=== PATIENT | female | born 1945 | race Caucasian/White ===

== ENCOUNTER → 2018-06-25 09:56 | Outpatient (CLI) | payer MEDICARE, BC, SELFPAY ==
--- NOTE | 2018-06-25 09:58 | CT_ITS ---
STUDY: CT ABDOMEN WITH CONTRAST REASON FOR EXAM: Female, 73 years old. Rule out metastatic disease. Nausea, vomiting and diarrhea. RADIATION DOSAGE (If Supplied By Facility): CTDIvol = ( 12.65 ) mGy, DLP = ( 555.22 ) mGycm TECHNIQUE: Transaxial images were obtained post I.V. administration of 100 ml of Isovue 300 contrast, and oral contrast. Sagittal and coronal images were reconstructed. Individualized dose optimization techniques were used for this CT. COMPARISON: CT chest 06/25/2018. FINDINGS: Body wall soft tissues: No acute process. Small bilateral neural hernias containing fat and a small amount of ascites. Osseous structures: No acute process. Lung bases: Please see CT chest same date. Liver: Normal liver enhancement with no focal suspicious lesions. No hepatomegaly. Partially radiodense gallstones are present within the gallbladder, the largest measuring approximately 1.6 cm. There is no apparent gallbladder wall thickening but the gallbladder wall is mildly hyperemic. Nonspecific. Nondilated intrahepatic biliary tree and common bile duct. Pancreas: Slight ductal ectasia up to 3 mm. Otherwise unremarkable. Spleen: Tiny splenic cyst or the hilum measuring 6 mm too small for definitive characterization. Adrenal glands: Normal. Urogenital: Small right renal parapelvic cysts. Bilaterally there is no hydronephrosis. Renal cortices are normal. Normal ureters and urinary bladder. Uterus absent. No adnexal mass or cyst. Pelvic floor and sidewalls and retroperitoneum: No mass or lymphadenopathy. Vasculature: Minimal atherosclerosis. Stomach: Minimal sliding hiatal hernia. Evidence of gastroesophageal reflux. Otherwise unremarkable stomach. Small bowel: Normal appearance of duodenum, jejunum and ileum. Large bowel: Normal appendix. Unremarkable large bowel and rectum. Free fluid or free air: Small to moderate ascites. No free air. CT/Abdomen/Pelvis WITH Contrast IMPRESSION: Ascites. Cholelithiasis. Correlate for right upper quadrant abdominal pain which might prompt additional ultrasound characterization. No other acute abdominopelvic process. Electronically Signed: Nick Deleon, at 17:40 EDT Tel , Service support ,
--- NOTE | 2018-06-25 09:58 | CT_ITS ---
STUDY: CT CHEST WITH CONTRAST REASON FOR EXAM: Female, 73 years old. Rule out metastases. Nausea, vomiting and diarrhea. RADIATION DOSAGE (If Supplied By Facility): CTDIvol = ( 12.65 ) mGy, DLP = ( 216.62 ) mGycm TECHNIQUE: Transaxial imaging was performed following intravenous administration of 100 ml of Isovue 300 contrast material. : Sagittal 2-D MPR Individualized dose optimization techniques were used for this CT. COMPARISON: CT abdomen and pelvis same date. CT chest 09/30/2009.. FINDINGS: Supraclavicular: Normal. Body wall soft tissues: Postsurgical changes of the right breast and right axilla with no apparent mass or lymphadenopathy. Right mastectomy. No visible other malady of the left breast and no left axillary lymphadenopathy. Osseous structures: Kyphoscoliosis, osteopenia. There is a sclerotic focus within the vertebral body at T12, measuring 7.5 mm in diameter. This should be regarded with suspicion for metastatic disease. This was not present on the study of 2009. Mediastinum: Minimal sliding hiatal hernia. Evidence of gastroesophageal reflux to the proximal 3rd of the esophagus. A few small lymph nodes are present in the mediastinum, none pathologically enlarged. There is no hilar lymphadenopathy. Cardiovascular: Unremarkable appearance of the heart with the exception of mitral annulus calcifications. No significant coronary cusp secretions are visible. Nondilated aorta. Unremarkable pulmonary artery arborization. Lungs: Mild subpleural reticulation. This could reflect prior smoking history. There is a noncalcified pulmonary nodule the left lower lobe lateral basilar measuring 4.4 mm, series 6 image 81. No other significant pulmonary nodules. That pulmonary nodule was not present on prior imaging of 2009. CT/Chest WITH Contrast IMPRESSION: Small sclerotic focus within the T12 vertebral body must be regarded with suspicion for the possibility of metastatic disease. No other lesions are apparent. Consider follow-up nuclear medicine bone scan. Small left-sided pulmonary nodule, in the left lower lobe, measuring approximate 4.4 mm. This is nonspecific. Electronically Signed: Nick Deleon at 17:45 EDT Tel , Service support ,
== END ==
PROVIDERS: Family Provider Family Medicine; PCP Family Medicine; Referring Provider Internal Medicine Medical Oncology; Visit Provider Internal Medicine Medical Oncology
DX: R91.1 Solitary pulmonary nodule (principal); R63.4 Abnormal weight loss; Z85.3 Personal history of malignant neoplasm of breast
CPT/HCPCS: 71260; 74177; Q9967

== ENCOUNTER → 2018-07-19 10:03 | Outpatient (CLI) | payer MEDICARE, BC, SELFPAY ==
--- NOTE | 2018-07-19 10:10 | NM_ITS ---
CLINICAL: 73-year-old female with reported history of carcinoma of the breast and suspected skeletal metastatic disease. WHOLE BODY 99m Tc MDP RADIONUCLIDE BONE SCINTIGRAPHY COMPARISON: CT of the chest, abdomen and pelvis reports 06/25/2018 FINDINGS: Following the intravenous administration of 24.7 mCi of 99m Tc MDP, whole body bone images reveal: 1. Focal increased radiopharmaceutical concentration is noted in the right anterior fourth rib at the costochondral junction. 2. Enhanced tracer uptake is defined in the mid cervical spine posteriorly on the right, lower cervical spine posteriorly on the left, eighth-12th thoracic, first-third lumbar vertebra posteriorly on the left and right, sternoclavicular compartment of the left shoulder, acromioclavicular compartment of the right shoulder, bilateral wrist articulations, the right midfoot, the left hand. 3. The remaining skeletal structures are scintigraphically unremarkable with normal-appearing renal images and urinary bladder activity identified. NM/Bone Scan Whole Body IMPRESSION: 1. The increase in radiopharmaceutical concentration identified in the right anterior fourth rib at the costochondral junction is most consistent with trauma-fracture. 2. The pattern of facilitated radiotracer uptake noted in the cervical, thoracic and lumbar spine, bilateral shoulder and wrist articulations, right midfoot and left hand is most consistent with degenerative arthritis. 3. Review of the 12th thoracic vertebra on the two-dimensional image acquisitions demonstrates no definitive evidence of abnormal increased radiotracer concentration to correlate with radiographic changes defined on CT of the chest dated 06/25/2018, in the region of the 12th thoracic vertebral body. Electronically Signed: Nick Tineo DO at 23:34 EDT Tel , Service support ,
== END ==
PROVIDERS: Family Provider Family Medicine; PCP Family Medicine; Referring Provider Internal Medicine Medical Oncology; Visit Provider Internal Medicine Medical Oncology
DX: Z85.3 Personal history of malignant neoplasm of breast (principal)
CPT/HCPCS: 78306

== ENCOUNTER → 2018-08-16 08:02 | Outpatient (CLI) | payer MEDICARE, BC, SELFPAY ==
[2018-08-01 11:08] VITALS: BMI 23.8
--- NOTE | 2018-08-16 08:43 | US_ITS ---
STUDY: ABDOMINAL ULTRASOUND - RIGHT UPPER QUADRANT REASON FOR VISIT: Female, 73 years old. History of ascites and possible paracentesis. TECHNIQUE: Ultrasound evaluation of the 4 quadrants was performed with real-time and static ayala-scale imaging. TECHNICAL QUALITY: Adequate. COMPARISON: None. FINDINGS: The 4 quadrants were examined by ultrasound. A small amount of perihepatic fluid is present. This is too small for a safe paracentesis. US/Abdomen Limited IMPRESSION: Not enough ascites for safe paracentesis. Electronically Signed: Atilio Orr MD at 8:18 EST Tel [phone], Service support ,
--- OUTSIDE RECORDS SUMMARY | 2018-10-11 01:41 | XMS RPT_ITS ---
:1945 Author Organization [facility] Support Name Relationship Address Phone Christelle Garcia Unavailable Unavailable + RadhaChristelle Unavailable Unavailable + CHRISTELLE GARCIA Unavailable [address] + [place] [address] R Unavailable Unavailable Unavailable CHRISTELLE GARCIA Unavailable [address] + [place] [address] R Unavailable Unavailable Unavailable CHRISTELLE GARCIA Unavailable [address] + [place] [address] R Unavailable Unavailable Unavailable CHRISTELLE GARCIA Unavailable [address] + [place] [address] R Unavailable Unavailable Unavailable CHRISTELLE GARCIA Unavailable [address] + [place] [address] R Unavailable Unavailable Unavailable CHRISTELLE GARCIA Unavailable [address] + [place] [address] R Unavailable Unavailable Unavailable CHRISTELLE GARCIA Unavailable [address] + [place] [address] R Unavailable Unavailable Unavailable CHRISTELLE GARCIA Unavailable [address] + [address] [place] [address] CHRISTELLE GARCIA Unavailable [address] + [address] [place] [address] RADHA CHRISTELLE Unavailable [address] + [place] [address] R Unavailable Unavailable Unavailable CHRISTELLE GARCIA Unavailable [address] + [place] [address] R Unavailable Unavailable Unavailable RADHA, CHRISTELLE Unavailable [address] + [address] [place] [address] RADHA, CHRISTELLE Unavailable [address] + [address] [place] [address] RADHA, CHRISTELLE Unavailable [address] + [address] [place] [address] RADHA, CHRISTELLE Unavailable [address] + [address] [place] [address] RADHA, CHRISTELLE Unavailable [address] + [place] [address] RADHA, CHRISTELLE Unavailable [address] + [place] [address] RADHA, CHRISTELLE Unavailable [address] + [place] [address] R Unavailable Unavailable Unavailable RADHA, CHRISTELLE Unavailable [address] + [place] [address] RADHA, CHRISTELLE Unavailable [address] + [place] [address] RADHA, CHRISTELLE Unavailable [address] + [place] [address] RADHA, CHRISTELLE Unavailable [address] + [place] [address] RADHA, CHRISTELLE Unavailable [address] + [place] [address] RADHA, CHRISTELLE Unavailable [address] + [place] [address] RADHA, CHRISTELLE Unavailable [address] + [place] [address] RADHA, CHRISTELLE Unavailable [address] + [place] [address] Care Team Providers Name Role Phone PAULA CASTREJON CNP Attending Unavailable RUDY HAMEED DO Primary Care Unavailable RUDY HAMEED DO Attending Unavailable RUDY HAMEED DO Referring Unavailable RDUY HAMEED DO Primary Care Unavailable PAULA CASTRJEON CNP Attending Unavailable ZARI DO, RUDY D Primary Care Unavailable RAINA CAMARILLO CNP Attending Unavailable ZARI DO, RUDY D Primary Care Unavailable DIANELYS DOJOCELYN Attending Unavailable ZARI DO, RUDY D Primary Care Unavailable JT STUART MD Consulting Unavailable SADE POP, JT Au Admitting Unavailable JT STUART MD Attending Unavailable ZARI DO, RUDY D Primary Care Unavailable CHRISTELLE HOUSER Attending Unavailable ZARI DO, RUDY D Primary Care Unavailable MIK, CHRISTELLE Attending Unavailable ZARI DO, RUDY D Primary Care Unavailable Andrea Gutierrez Attending Unavailable [place], Rudy Referring Unavailable [place], Rudy Primary Care Unavailable GutierrezAndrea Attending Unavailable Zari, Rudy Referring Unavailable Zari, Rudy Primary Care Unavailable Prah, Brigido Attending Unavailable [place], Rudy Primary Care Unavailable [place], Rudy Referring Unavailable Prah, Brigido Attending Unavailable [place], Rudy Referring Unavailable Zari, Rudy Primary Care Unavailable Prah, Brigido Consulting Unavailable Prah, Brigido Attending Unavailable [place], Rudy Referring Unavailable [place], Rudy Primary Care Unavailable Prah, Brigido Consulting Unavailable Prah, Brigido Attending Unavailable Prah, Brigido Referring Unavailable [place], Rudy Primary Care Unavailable Prah, Brigido Attending Unavailable Zari, Rudy Referring Unavailable Zari, Rudy Primary Care Unavailable Prah, Brigido Consulting Unavailable Prah, Brigido Attending Unavailable Prah, Brigido Referring Unavailable Zari, Rudy Primary Care Unavailable Prah, Brigido Attending Unavailable [place], Rudy Referring Unavailable Zari, Rudy Primary Care Unavailable Prah, Brigido Consulting Unavailable Prah, Brigido Attending Unavailable Zari, Rudy Referring Unavailable Zari, Rudy Primary Care Unavailable Prah, Brigido Consulting Unavailable Prah, Brigido Attending Unavailable Prah, Brigido Referring Unavailable [place], Rudy Primary Care Unavailable Prah, Brigido Attending Unavailable [place], Rudy Referring Unavailable [place], Rudy Primary Care Unavailable Prah, Brigido Consulting Unavailable PROBLEMS PROBLEMS DATE TYPE CONDITION / CODE ATTENDING STATUS SOURCE 09/03/2018 Unknown C50.911 - Malignant PraBrigido dolan Active [facility] neoplasm of Community unspecified site of Hospital right female breast / Repository C50.911(ICD-10) 07/15/2018 Unknown M89.9 - Disorder of PraBrigido dolan Active [place] bone, unspecified / Community M89.9(ICD-10) Hospital Repository 07/15/2018 Unknown R91.1 - Solitary Pramagdaleno, Brigido Active [place] pulmonary nodule / Community R91.1(ICD-10) Hospital Repository 07/15/2018 Unknown Z85.3 - Personal Prah, Brigido Active [facility] history of malignant Community neoplasm of breast / Hospital Z85.3(ICD-10) Repository 06/17/2018 Unknown C50.919 - Malignant PraBrigido dolan Active [facility] neoplasm of Community unspecified site of Hospital unspecified female Repository breast / C50.919(ICD-10) 12/11/2017 Unknown R21 - Rash and other Brigido Kauffman Active [place] nonspecific skin Community eruption / Hospital R21(ICD-10) Repository 12/11/2017 Unknown I70.213 - PraBrigido dolan Active [facility] Atherosclerosis of Community false pass arteries of Hospital extremities with Repository intermittent claudication, bilateral legs / I70.213(ICD-10) PROCEDURES PROCEDURES No Procedure Records FoundRESULTS RESULTS OP NOTE Observed: 08/29/2018 Status: F Source: [facility] 1:55 PM SYSTEM REPOSITORY PATIENT: ELIEZER GARCIA ADMISSION DATE: 08/29/2018 SURGERY DATE: 08/29/2018 DATE OF : 1945 AGE: 73 ADMITTING PHYSICIAN: Andrea Gutierrez MD ATTENDING PHYSICIAN: Andrea Gutierrez MD DICTATING PHYSICIAN: Andrea Gutierrez MD OPERATIVE RECORD Procedure: DIAGNOSTIC LAPAROSCOPY WITH MULTIPLE BIOPSIES WELL RIGHT SALPINGECTOMY. Preoperative Diagnoses: 1. Abnormal CT scan. 2. Ascites. 3. Elevated tumor markers. 4. History of lobular breast cancer. Postoperative Diagnoses: 1. Abnormal CT scan. 2. Ascites. 3. Elevated tumor markers. 4. History of lobular breast cancer. 5. Infiltration of peritoneum by neoplastic process. Anesthesia: General. Ship Superintendent: Shanika Gomez D.O. Description of Findings: The patient did have approximately 300 mL of a greenish, almost milky-like ascites in the upper abdomen. No disease was noted on the diaphragms. However, there did appear to be infiltration in the pelvic peritoneum, especially on the right side some type of neoplastic process with very thickened peritoneum without actual tumor nodules being noted. In addition, on several loops of the small bowel, especially those in the distal ilium had evidence of a whitish plaque-like infiltration that made the mesentery thickened and hardened. Several biopsies were obtained of the small bowel mesentery, pelvic peritoneum as well as removal of a portion of the left fallopian tube. The left ovary could not be removed laparoscopically as there was very dense almost woody infiltration involving the infundibulopelvic ligament. Description of Procedure: The patient was identified and brought to the operating room. After administration of general anesthesia, Redd catheter was placed and she underwent a sterile prep and drape in the supine position. A small incision made in the umbilicus and using the [employer] system, the abdominal cavity was entered under direct vision. Two 5-mm ports were then placed in the right and left lower quadrant. Both being placed under direct vision. The small bowel adhesions were sharply lysed. This allowed the pelvis to be evaluated. Attempt was made to remove the right ovary, however, there was very dense and woody infiltration and the ovary was very stuck to the pelvic sidewall right atop of the external iliac vessels. A portion of the right fallopian tube though could be easily removed and this was removed. Several peritoneal biopsies were then obtained of this area around the right ovary with what appeared to be dense infiltration of the pelvic peritoneum. Several mesenteric biopsies of the small bowel were also performed. The ascites was also evacuated. This completed the operation, all sponges, needles, and instruments was correct to the surgeon x2. All instruments were removed from the abdominal cavity. The fallopian tube was removed out through a 5 mm bag through the middle port. All the port sites were then closed with subcuticular 4-0 Monocryl and Dermabond. EBL was minimal. The Redd catheter was removed. She was taken to the recovery room in stable condition. We will await pathology for final confirmation. cc: Brigido Kauffman M.D., [facility] Job ID: [id number] Andrea Gutierrez MD DOD:08/29/2018 01:55 P /ann DOT:08/29/2018 03:33 P Job Number: [id number] Document Number: [id number] cc: Andrea Gutierrez MD [facility] [address] [facility] [address] Observed: 08/29/2018 Status: F Source: [facility] SURGICAL PATHOLOGY 12:59 PM SYSTEM REPOSITORY [id number] [facility] DEPARTMENT OF [facility] PATHOLOGY AND LABORATORY MEDICINE [address] [place] [address] FINAL SURGICAL PATHOLOGY REPORT NAME: ELIEZER GARCIA : 1945 73 Y F BILLING NO.: [id number] [address] PROCEDURE 08/29/2018 DATE: SURGEON: ANDREA GUTIERREZ MD RECEIVED 08/29/2018 DATE: ATTENDING: ANDREA GUTIERREZ MD REPORT DATE: 09/02/2018 COPIES TO: DIAGNOSIS: A. MESENTERY, BIOPSY - METASTATIC CARCINOMA, CONSISTENT WITH LOBULAR BREAST CARCINOMA. B. PERITONEUM, PELVIS, BIOPSY - METASTATIC CARCINOMA, CONSISTENT WITH LOBULAR BREAST CARCINOMA. C. FALLOPIAN TUBE, RIGHT, BIOPSY - METASTATIC CARCINOMA, CONSISTENT WITH LOBULAR BREAST CARCINOMA. COMMENT: The malignant cells in Parts A, B, and C are morphologically similar. Immunostains for cell type and additional information were performed on Part C only. The cells stain positive for EPHRAIM-3 and are negative for PAX8, which, along with the morphology, is consistent with a breast primary. ER is positive in approximately 10-20% of tumor cell nuclei, and NJ is positive in approximately 5% of tumor cell nuclei. HER2 shows positive staining Score 3+). Note is made of the patient's previous invasive lobular breast carcinoma from 2008 (outside hospital, records in [facility]). [facility] <Sign Out Dr. Vaca> KRYSTAL NAVARRETE M.D. CLINICAL INFORMATION: History of lobular breast cancer in [place]. Now with ascites and infiltrating neoplasm of peritoneum SPECIMEN: (A) BIOPSY (B) PERITONEUM, BIOPSY (C) FALLOPIAN TUBE (RFN) GROSS DESCRIPTION: A. Small biopsy mesentery biopsies Received in formalin are segments of yellow-fletcher tissue aggregating to 0.4 x 0.4 cm. The specimen is entirely submitted in a single cassette. (bits ns, 1) B. Pelvic peritoneal biopsies Received in formalin are multiple pink-fletcher tissue segments aggregating to 0.5 x 0.5 cm. The specimen is entirely submitted in a single cassette. (bits ns, 1) C. Portion of right fallopian tube Received in formalin is a tubal portion of pink-ayala tissue 2.3 x 1.0 cm. Fimbriae are present at one end and are free. There is a nodule identified at the tube's midpoint. Upon transection, this nodule has a white-ayala cut surface. It measures approximately 0.8 x 0.8 cm. The tube has a tubal lumen. The tube is sectioned and is entirely submitted in three cassettes. (bits ns, 3) [facility] Disclaimer: The following statement applies to all immunohistochemistry, in situ hybridization, molecular studies, and immunofluorescence testing. The use of one or more reagents in the above tests is regulated as an analyte specific reagent (ASR). These tests were developed and their performance characteristics determined by the clinical laboratories of [facility]. They have not been cleared by the US Food and Drug Administration (FDA). The FDA has determined that such clearance or approval is not necessary. All the above immunostains were performed on paraffin embedded tissue. Appropriate positive and negative controls (where applicable) were run in parallel with the patient's specimen; these controls showed expected staining pattern, with acceptable intensity of staining. Immunohistochemical assays have not been validated on decalcified tissues. Results should be interpreted with caution given the raised possibility of false negativity on decalcified specimens. Professional Performing Location: [address] [place] [address]. DEPARTMENT OF PATHOLOGY AND LABORATORY MEDICINE [place], [place] [address] HEMOGLOBIN AND Collected: 08/29/2018 Status: F Source: [facility] HEMATOCRIT 12:38 PM SYSTEM REPOSITORY TYPE CODE TESTS RESULT OUT OF RANGE REFERENCE UNITS LAB HGB 11.7-16.0 g/dL Normal Hemoglobin 12.5 LAB HCT 35.0-47.0 % Normal Hematocrit 37.0 Performed By: #### HGHCMarcy, BMP3 #### [facility] [address] [place] [id number] BASIC METABOLIC PANEL Collected: 08/29/2018 Status: F Source: [facility] 12:38 PM SYSTEM REPOSITORY TYPE CODE TESTS RESULT OUT OF RANGE REFERENCE UNITS LAB NA3 135-145 mmol/L Normal Sodium 138 Result Comment: NOTE: New Sodium Reference Range effective 2018 @ 10:00 LAB K3 3.5-5.1 mmol/L Normal Potassium 4.1 LAB CL3 98-107 mmol/L Normal Chloride 102 LAB CO23 22-30 mmol/L Normal Carbon Dioxide 26 LAB ANIN3 NA Anion Gap 10 LAB GLUC3 70-100 mg/dL Normal Glucose 87 LAB BUN3 7-20 mg/dL Normal Urea Nitrogen 12 LAB CRET3 0.52-1.25 mg/dL Normal Creatinine 0.72 LAB GF3BR >60 mL/min eGFR > 60.0 LAB GF3WR >60 mL/min eGFR OTHER > 60.0 Result Comment: Source- MDRD equation with creatinine calibration to IDMS(NKDEP) eGFR not recommended for drug dose adjustment LAB CA3 8.4-10.4 mg/dL Normal Calcium 9.6 Performed By: #### HGHCMarcy, BMP3 #### [employer] [address] [address] Observed: 08/29/2018 Status: F Source: [facility] MEDICAL CYTOLOGY 12:00 AM SYSTEM REPOSITORY [facility] [id number] DEPARTMENT OF PATHOLOGY AND [facility] LABORATORY MEDICINE [address] [place] [address] FINAL MEDICAL CYTOLOGY REPORT NAME: ELIEZER GARCIA : 1945 73 Y F BILLING NO.: [id number] LOCATION: [facility] PACU OUTPT 1PAC PROCEDURE 08/29/2018 56 DATE: PHYSICIAN: ANDREA GUTIERREZ MD RECEIVED DATE: 08/30/2018 ATTENDING: ANDREA GUTIERREZ MD REPORT DATE: 09/02/2018 COPIES TO: CLINICAL DATA: DIAGNOSIS POSITIVE FOR MALIGNANT CELLS. CELLULAR FINDINGS ARE CONSISTENT WITH CARCINOMA. SEE COMMENT. COMMENT: The cells present in this specimen are morphologically similar to the metastatic carcinoma cells present in the patient's concurrent peritoneal biopsies and right fallopian tube ([id number]). This is consistent with metastatic lobular breast carcinoma. Please see surgical case for ER, NJ, and HER2 ancillary studies results. Comment: ADDITIONAL SURGICAL CASES EXIST FOR THIS SAME DATE OF SERVICE SPECIMEN: ASCITES FLUID PROCEDURE(S): FLUID COLLECTION GROSS DESCRIPTION: 100 ml, yellow fluid, w/o cytolyt Materials Prepared & Examined: Cell Blocks . . . . . . . . . . . . 1 Monolayers . . . . . . . . . . . . 1 [facility] <Sign Out Dr. Vaca> Screened by KRYSTAL NAVARRETE M.D. The following statement applies to all immunohistochemistry, in situ hybridization, molecular studies, and immunofluorescence testing. The use of one or more reagents in the above tests is regulated as an analyte specific reagent (ASR). These tests were developed and their performance characteristics determined by the clinical laboratories of [facility] [employer] [facility]. They have not been cleared by the US Food and Drug Administration (FDA). The FDA has determined that such clearance or approval is not necessary. All the above immunostains were performed on paraffin embedded tissue. Appropriate positive and negative controls (where applicable) were run in parallel with the patient's specimen; these controls showed expected staining pattern, with acceptable intensity of staining. Immunohistochemical assays have not been validated on decalcified tissues. Results should be interpreted with caution given the raised possibility of false negativity on decalcified specimens. Case reviewed at [facility] [address] [place] [address]. DEPARTMENT OF PATHOLOGY AND LABORATORY MEDICINE [place], [place] [address] ONCOLOGY VISIT REPORT Observed: 08/22/2018 Status: F Source: [place] 2:13 PM [facility] REPOSITORY [facility] Medical Oncology [address] [place] [address] OFFICE VISIT Date of Service: 08/21/18 1603 MR#: [id number] Acct: [id number] Name: ELIEZER GARCIA Rep #: [id number] : 1945 From: Brigido Kauffman MD Age/Sex: 73/F Location: OMD Status: Signed Subjective - Date of Service Date of Service:: 08/21/18 - Chief Complaint Follow up-breast cancer and PET/CT results. - History of Present Illness 73y.o.woman was diagnosed with Stage IIIA (pT2, pN2, M0), ER/NJ positive, HER2 amplified, grade 2 infiltrating lobular carcinoma of the right breast on 01/13/2009. S/P lumpectomy on 02/15/2009. S/P right MRM and axillary dissection on 03/15/2009. S/P TCH chemotherapy x6 cycles, completed 08/05/2009, and Herceptin maintenance until March 2010. S/P XRT to the right mastectomy site and right supraclavicular area, completed 11/19/2009. Was on Femara from 09/17/2009 till November 2017. She has constipation, poor appetite and weight loss over the last 3 months. Vomited last Sunday. CXR a few months ago at [facility] showed a nodule. CT c/a/p on 06/25/2018 showed 4mm nodule LLL, Ascites, sclerotic focus T12, Gallstones. Bone scan done on 07/19/2018 showed DJD. PET/CT on 07/29/2018 showed hypermetabolic activities on hepatic capsule, retroperitoneal and pelvic floor. She was referred for US guided paracentesis and comes for follow up. - Past Medical/Social History Past Medical History Past Medical History: Heart disease Cancer: Breast cancer Past Surgical History Surgical: Back, section,Hysterectomy,Lumpectomy, Tonsillectomy Other Surgical History: LAPAROSCOPY Back Surgery Jul 2015 Family History Paternal Past Medical History: Heart disease Maternal Past Medical History: Unknown Maternal History of Cancer: Thyroid cancer Social History Social History: No changes Smoking Status Never smoker Review of Systems Constitutional:: Reports: Weight loss. Denies: Fever, Sweats, Appetite change, Chills Cardiovascular:: Denies: Chest pain, Palpitations, Dyspnea on exertion, Orthopnea, PND, Shortness of breath Respiratory: Denies: Cough, Hemoptysis, Shortness of Breath, Wheezing Gastrointestinal:: Denies: Abdominal pain, Nausea, Vomiting, Diarrhea, Constipation, Hematochezia Genitourinary: Denies: Dysuria, Hematuria, 15, Flank pain Musculoskeletal:: Denies: Back pain, Myalgia, Arthralgia Skin: Denies: Rash, Skin Changes, Wounds Neurological:: Denies: Headache, Dizziness, Visual changes, Tinnitus, Hearing loss Psychiatric: Denies: Anxiety, Depression, Homicidal Ideations, Suicidal Ideations Vital Signs Height 5 ft 4 in Weight: 62.369 kg Weight in Pounds 137.5 lbs Pulse Ox 97 - Physical Exam General: Alert, Oriented x3, No apparent distress Laboratory Data: Laboratory Tests Carcinoembryonic Ag 122.9 H CA 15-3 Antigen 160.2 H CA 27-29 342.5 H CA 125 Antigen 60.6 H Diagnostic Data: Diagnostic Data PET, CT Tumor Imaging 07/29/18 08:00 IMPRESSION: 1. ABNORMAL EXAMINATION INDICATIVE OF MALIGNANT VIABLE NEOPLASM. 2. Increased glucose concentration noted in the upper abdominal retroperitoneum and retrocrural regions fulfills quantitative criteria for viable neoplasm. 3. Facilitated FDG uptake noted in the right upper abdomen contiguous to the hepatic capsule fulfills quantitative criteria for malignant transformation. 4. Borderline criteria of viable neoplasm are demonstrated in the single left upper axillary hypermetabolic focus. 5. The right thoracic perihilar increase in tracer uptake does not fulfill quantitative criteria for viable neoplasm. (Rafaela bustos al, Journal of Clinical Oncology 16:2142, 1998). Electronic Signature Nick Tineo D.O. Electronically Signed: Nick Tineo DO at 22:33 EST Tel , Service support , Assessment and Plan Right breast cancer stage IIIA, finished adjuvant hormonal therapy with Femara. ? Ascites R/O metastatic disease. US guided paracentesis was unsuccessful. CEA/CA15-3, CA27.29, CA125 elevated. PET/CT shows activity in abdomen-liver capsule and retroperitoneal nodes, pelvic floor. Weight loss, L Lung nodule-stable 4mm. Discussed evaluation and biopsy by Chiropractic Neurologist Oncology. Pt agrees. Plan is to obtain Chiropractic Neurologist Onc consult. RTC 2 weeks. Medications: Prescriptions This Visit Medication Instructions Recorded Primary Care Provider: Rudy Hameed Referring Provider: - Problem List (1) History of right breast cancer Status: Chronic (2) Osteopenia Status: Chronic (3) Weight loss Status: Acute (4) Lung nodule Status: Chronic (5) Bony sclerosis Status: Chronic (6) Ascites Status: Acute Qualifiers: Ascites type: malignant Qualified Code(s): R18.0 - Malignant ascites Code Visit Office Visits / Consults: [id number] OV L4 Est 08/22/18 1413 <Electronically signed by Brigido Kauffman MD> Date Brigido Kauffman MD Cosigner Signature: Date (if applicable) CC: Andrea Gutierrez ABDOMEN LIMITED Observed: 08/16/2018 Status: F Source: [place] 8:43 AM [facility] REPOSITORY [facility] [place] Imaging Services [address] [place] [address] Abdomen Limited MR#: [id number] Acct: [id number] Name: ELIEZER GARCIA Rep #: [id number] : 1945 F 73 From: Atilio Orr MD PCP: Rudy Hameed DO Status: REG CLI Study: Abdomen Limited Date of Exam: 08/16/18 Exam# [id number] Ordering Dr: Brigido Kauffman MD STUDY: ABDOMINAL ULTRASOUND - RIGHT UPPER QUADRANT REASON FOR VISIT: Female, 73 years old. History of ascites and possible paracentesis. TECHNIQUE: Ultrasound evaluation of the 4 quadrants was performed with real-time and static ayala-scale imaging. TECHNICAL QUALITY: Adequate. COMPARISON: None. FINDINGS: The 4 quadrants were examined by ultrasound. A small amount of perihepatic fluid is present. This is too small for a safe paracentesis. US/Abdomen Limited IMPRESSION: Not enough ascites for safe paracentesis. Electronically Signed: Atilio Orr MD at 8:18 EST Tel [phone], Service support , CC: Rudy Hameed DO; Brigido Kauffman MD Triage Clinician: Signed CBC W/DIFF, AUTOMATED Collected: 08/15/2018 Status: F Source: [place] 1:07 PM [facility] REPOSITORY Order Comment: Reason for Laboratory Test . TYPE CODE TESTS RESULT OUT OF RANGE REFERENCE UNITS LAB L100.1000 4.4-11.0 K/mm3 Normal WBC 5.3 LAB L100.1200 4.2-5.4 M/mm3 Low RBC 4.12 LAB L100.1300 12.0-15.0 g/dl Low HGB 11.7 LAB L100.1400 37-47 % Normal HCT 37.7 LAB L100.1500 81-99 fL Normal MCV 91.5 LAB L100.1600 27.0-32.0 pg Normal MCH 28.4 LAB L100.1700 32-36 g/gl Low MCHC 31.0 LAB L100.1810 11.6-14.6 % High RDW CV 15.7 LAB L100.1820 35.1-43.9 fl High RDW SD 53.1 LAB L100.1900 150-450 K/mm3 Normal PLT 180 LAB L100.2000 6.2-12.0 fl Normal MPV 11.2 LAB L100.2100 47-70 % High NEUT% 72.7 LAB L100.2200 19-41 % Low LY% 13.9 LAB L100.2300 0-10 % High MONO% 12.1 LAB L100.2400 0-5 % Normal EO% 1.1 LAB L100.2500 0-1 % Normal BASO% 0.2 LAB L100.2550 0.0-0.9 % Normal IM GRAN % 0.000 Result Comment: IG% - Immature Granulocytes (promyelocytes, myelocytes and metamyelocytes) > 1% indicates that a LEFT SHIFT is Present. LAB L100.2620 2.0-7.7 X10 3/uL Normal Absolute Neut 3.8 LAB L100.2720 0.83-4.51 X10 3/ul Low Absolute Lymph 0.73 Performed By: #### L100.0100 #### [facility] [address] [place], [place], [id number] PROTHROMBIN TIME W/INR Collected: 08/15/2018 Status: F Source: [place] 1:07 PM [facility] REPOSITORY Order Comment: Reason for Laboratory Test . TYPE CODE TESTS RESULT OUT OF RANGE REFERENCE UNITS LAB L300.4150 11.7-14.9 SECONDS Normal PROTIME 13.9 LAB L300.4200 Normal INR 1.1 Performed By: #### L300.3900, L300.4310 #### [facility] [address] [place], [place], [id number] PARTIAL THROMBOPLAST Collected: 08/15/2018 Status: F Source: [place] TIME 1:07 PM [facility] REPOSITORY Order Comment: Reason for Laboratory Test . TYPE CODE TESTS RESULT OUT OF RANGE REFERENCE UNITS LAB L300.4310 24.1-36.2 Seconds Normal PTT 30.5 Performed By: #### L300.3900, L300.4310 #### [facility] [address] [place], [place], [address] CARCINOEMBRYONIC ANTIGEN Collected: 08/01/2018 Status: F Source: [place] 11:59 AM [facility] REPOSITORY Order Comment: Reason for Laboratory Test . TYPE CODE TESTS RESULT OUT OF RANGE REFERENCE UNITS LAB L3100.2300 0.0-4.7 ng/mL High CEA 122.9 Result Comment: Britton ECLIA methodology Nonsmokers <3.9 Smokers <5.6 Performed By: #### L3100.2300, L3100.5000, L3100.5040 #### [facility] (refer to report for specific site) refer to report for address and phone number CANCER ANTIGEN 125 Collected: 08/01/2018 Status: F Source: NKECHI 11:59 AM [facility] REPOSITORY Order Comment: Reason for Laboratory Test . TYPE CODE TESTS RESULT OUT OF RANGE REFERENCE UNITS LAB L3100.5000 0.0-38.1 U/mL High CA125 60.6 2303 Result Comment: Britton ECLIA methodology Performed By: #### L3100.2300, L3100.5000, L3100.5040 #### [facility] (refer to report for specific site) refer to report for address and phone number CA [phone] Collected: 08/01/2018 Status: F Source: NKECHI 11:59 AM [facility] REPOSITORY Order Comment: Reason for Laboratory Test . TYPE CODE TESTS RESULT OUT OF REFERENCE UNITS RANGE LAB L3100.5040 0.0-38.6 U/mL High CA27.29 342.5 [id number] Result Comment: Anne Centaur/ACS methodology Performed at: [facility] [id number] Pcb Design Engineer: Eriberto Meyers PhD, Phone: [phone] Performed By: #### L3100.2300, L3100.5000, L3100.5040 #### [facility] (refer to report for specific site) refer to report for address and phone number [phone] Collected: 08/01/2018 Status: F Source: NKECHI 11:59 AM [facility] REPOSITORY Order Comment: Reason for Laboratory Test . TYPE CODE TESTS RESULT OUT OF REFERENCE UNITS RANGE LAB L3100.5030 0.0-25.0 U/mL High CA 15-3 160.2 [id number] Result Comment: Britton ECLIA methodology Performed at: [facility] [address] [id number] Pcb Design Engineer: Eriberto Meyers PhD, Phone: [phone] Performed By: #### L3100.5030 #### [facility] (refer to report for specific site) refer to report for address and phone number ONCOLOGY VISIT REPORT Observed: 08/01/2018 Status: F Source: NKECHI 11:44 AM [facility] REPOSITORY [facility] [place] [address] OFFICE VISIT Date of Service: 08/01/18 1132 MR#: [id number] Acct: [id number] Name: ELIEZER GARCIA Rep #: [id number] : 1945 From: Brigido Kauffman MD Age/Sex: 73/F Location: OMD Status: Signed Subjective - Date of Service Date of Service:: 08/01/18 - Chief Complaint Follow up-breast cancer and PET/CT results. - History of Present Illness 73y.o.woman was diagnosed with Stage IIIA (pT2, pN2, M0), ER/NJ positive, HER2 amplified, grade 2 infiltrating lobular carcinoma of the right breast on 01/13/2009. S/P lumpectomy on 02/15/2009. S/P right MRM and axillary dissection on 03/15/2009. S/P TCH chemotherapy x6 cycles, completed 08/05/2009, and Herceptin maintenance until March 2010. S/P XRT to the right mastectomy site and right supraclavicular area, completed 11/19/2009. Was on Femara from 09/17/2009 till November 2017. She has constipation, poor appetite and weight loss over the last 3 months. Vomited last Sunday. CXR a few months ago at [facility] showed a nodule. CT c/a/p on 06/25/2018 showed 4mm nodule LLL, Ascites, sclerotic focus T12, Gallstones. Bone scan done on 07/19/2018 showed DJD. Had PET/CT and comes for follow up. - Past Medical/Social History Past Medical History Past Medical History: Heart disease Cancer: Breast cancer Past Surgical History Surgical: Back, section,Hysterectomy,Lumpectomy, Tonsillectomy Other Surgical History: LAPAROSCOPY Back Surgery Jul 2015 Family History Paternal Past Medical History: Heart disease Maternal Past Medical History: Unknown Maternal History of Cancer: Thyroid cancer Social History Social History: No changes Smoking Status Never smoker Review of Systems Constitutional:: Reports: Appetite change - poor.. Denies: Fever, Sweats, Weight loss, Chills Cardiovascular:: Denies: Chest pain, Palpitations, Dyspnea on exertion, Orthopnea, PND, Shortness of breath Respiratory: Denies: Cough, Hemoptysis, Shortness of Breath, Wheezing Gastrointestinal:: Reports: Constipation Genitourinary: Denies: Dysuria, Hematuria, 15, Flank pain Skin: Denies: Rash, Skin Changes, Wounds Neurological:: Denies: Headache, Dizziness, Visual changes, Tinnitus, Hearing loss Psychiatric: Denies: Anxiety, Depression, Homicidal Ideations, Suicidal Ideations Vital Signs Height 5 ft 4 in Weight: 63.049 kg Weight in Pounds 139.0 lbs Pulse Ox 98 - Physical Exam General: Alert, Oriented x3, No apparent distress HEENT: Atraumatic, PERRLA, EOMI, Normocephalic Oropharynx:: Dry mucosa Neck:: Supple, Trachea midline. Negative for: JVD, bilateral Cardiac:: Regular rate, Regular rhythm, Normal S1, Normal S2. Negative for: Murmur Lungs: Clear to auscultation, Excusion symmetrical. Negative for: Rhonchi, Wheezes Abdomen:: Bowel sounds x 4, Soft, Non-tender, Non-distended. Negative for: Hepatosplenomegaly Neurological: Neuro grossly intact Diagnostic Data: Diagnostic Data PET, CT Tumor Imaging 07/29/18 08:00 IMPRESSION: 1. ABNORMAL EXAMINATION INDICATIVE OF MALIGNANT VIABLE NEOPLASM. 2. Increased glucose concentration noted in the upper abdominal retroperitoneum and retrocrural regions fulfills quantitative criteria for viable neoplasm. 3. Facilitated FDG uptake noted in the right upper abdomen contiguous to the hepatic capsule fulfills quantitative criteria for malignant transformation. 4. Borderline criteria of viable neoplasm are demonstrated in the single left upper axillary hypermetabolic focus. 5. The right thoracic perihilar increase in tracer uptake does not fulfill quantitative criteria for viable neoplasm. (Rafaela bustos al, Journal of Clinical Oncology 16:2142, 1998). Electronic Signature Nick Tineo D.O. Electronically Signed: Nick Tineo DO at 22:33 EST Tel , Service support , Assessment and Plan Right breast cancer stage IIIA, finished adjuvant hormonal therapy with Femara. No evidence of disease clinically. Ascites R/O metastatic disease. PET/CT shows activity in abdomen and retroperitoneal nodes. Weight loss, L Lung nodule-stable 4mm. Plan is to US guided abd paracentesis-Fluid for cytology and ER status. Check CEA/CA15-3, CA27.29, CA125 RTC 2 weeks. Medications: Prescriptions This Visit Medication Instructions Recorded Primary Care Provider: Rudy Hameed Referring Provider: - Problem List (1) History of right breast cancer Status: Chronic (2) Osteopenia Status: Chronic (3) Weight loss Status: Acute (4) Lung nodule Status: Chronic (5) Bony sclerosis Status: Chronic (6) Ascites Status: Acute Qualifiers: Ascites type: malignant Qualified Code(s): R18.0 - Malignant ascites Code Visit Office Visits / Consults: 95317 OV L5 Est 08/01/18 1144 <Electronically signed by Brigido Kauffman MD> Date Brigido Kauffman MD Cosigner Signature: Date (if applicable) CC: Rudy Hameed DO PET/CT TUMOR BASE Observed: 07/29/2018 Status: F Source: [facility] SUBS 7:38 AM [facility] REPOSITORY [facility] [address] [place] [id number] PET/CT Tumor Base -Thigh Subs MR#: [id number] Acct: [id number] Name: ELIEZER GARCIA Rep #: [id number] : 1945 F 73 From: Nick Tineo DO PCP: Rudy Hameed DO Status: REG RCR Study: PET/CT Tumor Base -Thigh Subs Date of Exam: 07/29/18 Exam# [id number] Ordering Dr: Brigido Kauffman MD EXAMINATION: FDG PET CT INDICATIONS: A 73-year-old female with reported history of carcinoma of the breast presenting for restaging examination. COMPARISON EXAMINATION: Whole body bone scintigraphy report dated 07/19/18, CT of the chest, abdomen and pelvis reports dated 06/25/18. INDEX LESION SIZE SUV INTERPRETATION Upper abdominal retroperitoneum retrocrural regions 16.4 mm x 14.2 mm largest (frame 125) 3.5 (max) Fulfills quantitative criteria for viable neoplasm Right upper abdomen hepatic capsule 4.0 (max) Quantitative criteria for viable neoplasm are fulfilled Left axilla (n = 1) 11.9 mm (frame 208) 2.4 Fulfills borderline quantitative criteria for viable neoplasm NON-INDEX LESION SIZE SUV INTERPRETATION Right thoracic perihilum 1.9 Quantitative criteria for viable neoplasm are not fulfilled TECHNIQUE: Following the intravenous administration of 14.62 mCi of F-18 deoxyglucose via the left antecubital fossa, multiplanar image acquisitions of the neck, chest, abdomen and pelvis to level of mid thigh, obtained at one hour post radiopharmaceutical administration contemporaneously interpreted with the current CT of the neck, chest, abdomen and pelvis to level of mid thigh, dated 07/29/18 via coregistration and whole body bone scintigraphy report dated 07/19/18, CT of the chest, abdomen and pelvis reports dated 06/25/18 reveal: SERUM GLUCOSE LEVEL: 87 mg/dl. HEIGHT: 62 inches. WEIGHT: 135 lbs. FINDINGS: 1. An increase in glucose metabolism is multifocally apparent in the mid to lower abdominal retroperitoneum, the right upper paramedian abdomen, retrocrural in location generating a calculated maximum standard uptake value of 3.5. The maximal axial diameter of the largest individual hypermetabolic soft tissue density on review of CT of the abdomen and pelvis dated 07/29/18 is 16.4 mm (transverse) x 14.2 mm (AP). 2. Enhanced FDG uptake is visualized in the right upper-midline abdomen contiguous to the distribution of the hepatic capsule (2.6) generating a calculated maximum standard uptake value of 4.0. 3. There is an increase in radiopharmaceutical concentration visualized in the left upper axilla rendering a calculated maximum standard uptake value of 2.4. The maximal axial diameter of the corresponding metabolic, morphologic abnormality on review of CT of the thorax dated 07/29/18 is 11.9 mm (transverse). 4. Mild increased glucose concentration is observed in the right thoracic perihilum generating a calculated maximum standard uptake value of 1.9. Normal physiologic distribution of the radiopharmaceutical is apparent in the splenic parenchyma, both renal units, bladder and visualized intestinal tract. There is uniform distribution of the radiopharmaceutical concentration defined in the visualized cerebellar hemispheres and cerebral cortical structures.? Pertinent CT findings are as follows. CHEST: The right breast is surgically absent. Surgical clips are identified in the right axillary region. Left axillary soft tissue is ametabolic. There are no parenchymal densities-nodules noted in the right-left hemithorax demonstrating discernible increased glucose metabolism. ABDOMEN AND PELVIS: Atherosclerotic calcification is defined in the abdominal aorta without evidence of dilatation, aneurysm formation. Bilateral inguinal soft tissue densities are non-glucose avid. Abdominal-pelvic ascites formation demonstrates no evidence of quantitatively significant increased glucose metabolism. Cholelithiasis is defined. There is retained oral contrast material noted in the visualized intestinal tract. SKELETAL: Degenerative changes defined in the cervical, thoracic and lumbar spine demonstrate no evidence for glucose hypermetabolism. Orthopedic hardware placement is noted in the lower lumbar spine. PET/PET/CT Tumor Base -Thigh Subs IMPRESSION: 1. ABNORMAL EXAMINATION INDICATIVE OF MALIGNANT VIABLE NEOPLASM. 2. Increased glucose concentration noted in the upper abdominal retroperitoneum and retrocrural regions fulfills quantitative criteria for viable neoplasm. 3. Facilitated FDG uptake noted in the right upper abdomen contiguous to the hepatic capsule fulfills quantitative criteria for malignant transformation. 4. Borderline criteria of viable neoplasm are demonstrated in the single left upper axillary hypermetabolic focus. 5. The right thoracic perihilar increase in tracer uptake does not fulfill quantitative criteria for viable neoplasm. (Phameenlui et al, Journal of Clinical Oncology 16:2142, 1998). Electronic Signature Nick Tineo D.O. Electronically Signed: Nick Tineo DO at 22:33 EST Tel , Service support , CC: Rudy Hameed DO; Brigido Kauffman MD Triage Clinician: Signed ONCOLOGY VISIT REPORT Observed: 07/25/2018 Status: F Source: [place] 4:05 PM [facility] REPOSITORY [facility] [address] [place], [place] [address] [address] OFFICE VISIT Date of Service: 07/25/18 1403 MR#: [id number] Acct: [id number] Name: ELIEZER GARCIA Rep #: [id number] : 1945 From: Brigido Kauffman MD Age/Sex: 73/F Location: OMD Status: Signed Subjective - Date of Service Date of Service:: 07/25/18 - Chief Complaint Follow up-breast cancer - History of Present Illness 73y.o.woman was diagnosed with Stage IIIA (pT2, pN2, M0), ER/NJ positive, HER2 amplified, grade 2 infiltrating lobular carcinoma of the right breast on 01/13/2009. S/P lumpectomy on 02/15/2009. S/P right MRM and axillary dissection on 03/15/2009. S/P TCH chemotherapy x6 cycles, completed 08/05/2009, and Herceptin maintenance until March 2010. S/P XRT to the right mastectomy site and right supraclavicular area, completed 11/19/2009. Was on Femara from 09/17/2009 till November 2017. She has constipation, poor appetite and weight loss over the last 3 months. Vomited last Sunday. CXR a few months ago at [facility] showed a nodule. CT c/a/p on 06/25/2018 showed 4mm nodule LLL, Ascites, sclerotic focus T12, Gallstones. She had bone scan done and comes in for follow up - Past Medical/Social History Past Medical History Past Medical History: Heart disease Cancer: Breast cancer Past Surgical History Surgical: Back, section,Hysterectomy,Lumpectomy, Tonsillectomy Other Surgical History: LAPAROSCOPY Back Surgery Jul 2015 Family History Paternal Past Medical History: Heart disease Maternal Past Medical History: Unknown Maternal History of Cancer: Thyroid cancer Social History Social History: No changes Smoking Status Never smoker Review of Systems Constitutional:: Reports: Fatigue. Denies: Fever, Sweats Cardiovascular:: Denies: Chest pain, Palpitations, Dyspnea on exertion, Orthopnea, PND, Shortness of breath Respiratory: Denies: Cough, Hemoptysis, Shortness of Breath, Wheezing Gastrointestinal:: Denies: Abdominal pain, Nausea, Vomiting, Diarrhea, Constipation, Hematochezia Genitourinary: Denies: Dysuria, Hematuria, 15, Flank pain Musculoskeletal:: Denies: Back pain, Myalgia, Arthralgia Skin: Denies: Rash, Skin Changes, Wounds Neurological:: Denies: Headache, Dizziness, Visual changes, Tinnitus, Hearing loss Psychiatric: Denies: Anxiety, Depression, Homicidal Ideations, Suicidal Ideations Vital Signs Height 5 ft 4 in Weight: 63.049 kg Weight in Pounds 139.0 lbs Pulse Ox 95 - Physical Exam General: Alert, Oriented x3, No apparent distress Diagnostic Data: 07/19/2018 Bone scan reviewed. NM/Bone Scan Whole Body IMPRESSION: 1. The increase in radiopharmaceutical concentration identified in the right anterior fourth rib at the costochondral junction is most consistent with trauma-fracture. 2. The pattern of facilitated radiotracer uptake noted in the cervical, thoracic and lumbar spine, bilateral shoulder and wrist articulations, right midfoot and left hand is most consistent with degenerative arthritis. 3. Review of the 12th thoracic vertebra on the two-dimensional image acquisitions demonstrates no definitive evidence of abnormal increased radiotracer concentration to correlate with radiographic changes defined on CT of the chest dated 06/25/2018, in the region of the 12th thoracic vertebral body. Electronically Signed: Nikc Tineo DO at 23:34 EDT Assessment and Plan Right breast cancer stage IIIA, finished adjuvant hormonal therapy with Femara. No evidence of disease clinically. Ascites R/O metastatic disease. Weight loss, L Lung nodule-stable 4mm. Sclerotic lesion T12 R/O metastatic disease, R Rib lesion R/O metastatic disease. Plan is to obtain PET/CT. RTC 2 weeks. Medications: Prescriptions This Visit Medication Instructions Recorded Primary Care Provider: Rudy Hameed Referring Provider: - Problem List (1) History of right breast cancer Status: Chronic (2) Osteopenia Status: Chronic (3) Weight loss Status: Acute (4) Lung nodule Status: Chronic (5) Bony sclerosis Status: Chronic (6) Ascites Status: Acute Qualifiers: Ascites type: malignant Qualified Code(s): R18.0 - Malignant ascites 07/25/18 1605 <Electronically signed by Brigido Kauffman MD> Date Brigido Kauffman MD Cosigner Signature: Date (if applicable) CC: BONE SCAN WHOLE Observed: 07/19/2018 Status: F Source: [place]I BODY 10:10 AM [facility] REPOSITORY [facility] [address] [place] [address] Bone Scan Whole Body MR#: [id number] Acct: [id number] Name: ELIEZER GARCIA Rep #: [id number] : 1945 F 73 From: Nick Tineo DO PCP: Rudy Hameed DO Status: REG CLI Study: Bone Scan Whole Body Date of Exam: 07/19/18 Exam# [id number] Ordering Dr: Brigido Kauffman MD CLINICAL: 73-year-old female with reported history of carcinoma of the breast and suspected skeletal metastatic disease. WHOLE BODY 99m Tc MDP RADIONUCLIDE BONE SCINTIGRAPHY COMPARISON: CT of the chest, abdomen and pelvis reports 06/25/2018 FINDINGS: Following the intravenous administration of 24.7 mCi of 99m Tc MDP, whole body bone images reveal: 1. Focal increased radiopharmaceutical concentration is noted in the right anterior fourth rib at the costochondral junction. 2. Enhanced tracer uptake is defined in the mid cervical spine posteriorly on the right, lower cervical spine posteriorly on the left, eighth-12th thoracic, first-third lumbar vertebra posteriorly on the left and right, sternoclavicular compartment of the left shoulder, acromioclavicular compartment of the right shoulder, bilateral wrist articulations, the right midfoot, the left hand. 3. The remaining skeletal structures are scintigraphically unremarkable with normal-appearing renal images and urinary bladder activity identified. NM/Bone Scan Whole Body IMPRESSION: 1. The increase in radiopharmaceutical concentration identified in the right anterior fourth rib at the costochondral junction is most consistent with trauma-fracture. 2. The pattern of facilitated radiotracer uptake noted in the cervical, thoracic and lumbar spine, bilateral shoulder and wrist articulations, right midfoot and left hand is most consistent with degenerative arthritis. 3. Review of the 12th thoracic vertebra on the two-dimensional image acquisitions demonstrates no definitive evidence of abnormal increased radiotracer concentration to correlate with radiographic changes defined on CT of the chest dated 06/25/2018, in the region of the 12th thoracic vertebral body. Electronically Signed: Nick Tineo DO at 23:34 EDT Tel , Service support , CC: Rudy Hameed DO; Brigido Kauffman MD Triage Clinician: Signed ONCOLOGY VISIT REPORT Observed: 07/15/2018 Status: F Source: [place] 12:54 PM [facility] REPOSITORY [facility] [place] [address] OFFICE VISIT Date of Service: 07/15/18 1100 MR#: [id number] Acct: [id number] Name: ELIEZER GARCIA Rep #: [id number] : 1945 From: Brigido Kauffman MD Age/Sex: 73/F Location: OMD Status: Signed Subjective - Date of Service Date of Service:: 07/15/18 - Chief Complaint Follow up-breast cancer - History of Present Illness 73y.o.woman was diagnosed with Stage IIIA (pT2, pN2, M0), ER/NJ positive, HER2 amplified, grade 2 infiltrating lobular carcinoma of the right breast on 01/13/2009. S/P lumpectomy on 02/15/2009. S/P right MRM and axillary dissection on 03/15/2009. S/P TCH chemotherapy x6 cycles, completed 08/05/2009, and Herceptin maintenance until March 2010. S/P XRT to the right mastectomy site and right supraclavicular area, completed 11/19/2009. Was on Femara from 09/17/2009 till November 2017. She has constipation, poor appetite and weight loss over the last 3 months. Vomited last Sunday. CXR a few months ago at [facility] showed a nodule. She had a CT chest and comes in for follow up - Past Medical/Social History Past Medical History Past Medical History: Heart disease Cancer: Breast cancer Past Surgical History Surgical: Back, section,Hysterectomy,Lumpectomy, Tonsillectomy Other Surgical History: LAPAROSCOPY Back Surgery Jul 2015 Family History Paternal Past Medical History: Heart disease Maternal Past Medical History: Unknown Maternal History of Cancer: Thyroid cancer Social History Social History: No changes Smoking Status Never smoker Review of Systems Constitutional:: Denies: Fever, Sweats, Weight loss, Appetite change, Chills Cardiovascular:: Denies: Chest pain, Palpitations, Dyspnea on exertion, Orthopnea, PND, Shortness of breath Respiratory: Denies: Cough, Hemoptysis, Shortness of Breath, Wheezing Gastrointestinal:: Denies: Abdominal pain, Nausea, Vomiting, Diarrhea, Constipation, Hematochezia Genitourinary: Denies: Dysuria, Hematuria, 15, Flank pain Musculoskeletal:: Denies: Back pain, Myalgia, Arthralgia Skin: Denies: Rash, Skin Changes, Wounds Neurological:: Denies: Headache, Dizziness, Visual changes, Tinnitus, Hearing loss Psychiatric: Denies: Anxiety, Depression, Homicidal Ideations, Suicidal Ideations Vital Signs Height 5 ft 4 in Weight: 63.049 kg Weight in Pounds 139.0 lbs Pulse Ox 95 - Physical Exam General: Alert, Oriented x3, No apparent distress Diagnostic Data: 06/25/[address]/Chest WITH Contrast IMPRESSION: Small sclerotic focus within the T12 vertebral body must be regarded with suspicion for the possibility of metastatic disease. No other lesions are apparent. Consider follow-up nuclear medicine bone scan. Small left-sided pulmonary nodule, in the left lower lobe, measuring approximate 4.4 mm. This is nonspecific. Electronically Signed: Nick Deleon, at 17:[address]/Abdomen/Pelvis WITH Contrast IMPRESSION: Ascites. Cholelithiasis. Correlate for right upper quadrant abdominal pain which might prompt additional ultrasound characterization. No other acute abdominopelvic process. Electronically Signed: Nick Deleon, at 17:40 ED Assessment and Plan Right breast cancer stage IIIA, finished adjuvant hormonal therapy with Femara. No evidence of disease clinically. Osteopenia. Weight loss, L Lung nodule-stable 4mm. Sclerotic lesion T12 R/O metastatic disease Plan is to obtain bone scan. RTC 2 weeks. Medications: Prescriptions This Visit Medication Instructions Recorded Primary Care Provider: Rudy Hameed Referring Provider: - Problem List (1) History of right breast cancer Status: Chronic (2) Osteopenia Status: Chronic (3) Weight loss Status: Acute (4) Lung nodule Status: Chronic (5) Bony sclerosis Status: Chronic Code Visit Office Visits / Consults: 35328 OV L3 Est 07/15/18 1254 <Electronically signed by Brigido Kauffman MD> Date Brigido Kauffman MD Cosigner Signature: Date (if applicable) CC: XR CHEST 2 VIEWS Observed: 07/02/2018 Status: F Source: [employer] 1:32 PM [facility] REPOSITORY ORIGINAL XR CHEST 2 VIEWS CLINICAL STATEMENT: abn radiologic findings of lung field. COMPARISON: 05/29/2018, 04/27/2018, 10/16/2014 FINDINGS: A 1 cm nodular density persists in the medial RIGHT upper lobe. Patient is status post RIGHT mastectomy and axillary dissection. There is apparent calcific tendinitis of the RIGHT shoulder. Th e heart size is normal. The LEFT lung is clear. There is evidence of lumbar spine fusion. IMPRESSION: 1 cm nodular density persists in the RIGHT upper lobe. Chest CT correlation recommended. IMPORTANT. PHYSICIAN INPUT NECESSARY RADHA. Interpreted By: Marva Beebe MD Preliminary Report By: Marva Beebe MD Electronically Signed By: Marva Beebe MD Dictated Date: 07/02/2018 2:20:30 PM Prelim Date: 07/02/2018 2:20:30 PM Sign Date: 07/02/2018 2:24:18 PM ABDOMEN/PELVIS WITH Observed: 06/25/2018 Status: F Source: [place] CONTRAST 9:58 AM [facility] REPOSITORY [facility] [address] [place] [address] Abdomen/Pelvis WITH Contrast MR#: [id number] Acct: [id number] Name: RADHA,ELIEZER S Rep #: [id number] : 1945 F 73 From: Nick Deleon MD PCP: Rudy Hameed DO Status: REG CLI Study: Abdomen/Pelvis WITH Contrast Date of Exam: 06/25/18 Exam# [id number] Ordering Dr: Brigido Kauffman MD STUDY: CT ABDOMEN WITH CONTRAST REASON FOR EXAM: Female, 73 years old. Rule out metastatic disease. Nausea, vomiting and diarrhea. RADIATION DOSAGE (If Supplied By Facility): CTDIvol = ( 12.65 ) mGy, DLP = ( 555.22 ) mGycm TECHNIQUE: Transaxial images were obtained post I.V. administration of 100 ml of Isovue 300 contrast, and oral contrast. Sagittal and coronal images were reconstructed. Individualized dose optimization techniques were used for this CT. COMPARISON: CT chest 06/25/2018. FINDINGS: Body wall soft tissues: No acute process. Small bilateral neural hernias containing fat and a small amount of ascites. Osseous structures: No acute process. Lung bases: Please see CT chest same date. Liver: Normal liver enhancement with no focal suspicious lesions. No hepatomegaly. Partially radiodense gallstones are present within the gallbladder, the largest measuring approximately 1.6 cm. There is no apparent gallbladder wall thickening but the gallbladder wall is mildly hyperemic. Nonspecific. Nondilated intrahepatic biliary tree and common bile duct. Pancreas: Slight ductal ectasia up to 3 mm. Otherwise unremarkable. Spleen: Tiny splenic cyst or the hilum measuring 6 mm too small for definitive characterization. Adrenal glands: Normal. Urogenital: Small right renal parapelvic cysts. Bilaterally there is no hydronephrosis. Renal cortices are normal. Normal ureters and urinary bladder. Uterus absent. No adnexal mass or cyst. Pelvic floor and sidewalls and retroperitoneum: No mass or lymphadenopathy. Vasculature: Minimal atherosclerosis. Stomach: Minimal sliding hiatal hernia. Evidence of gastroesophageal reflux. Otherwise unremarkable stomach. Small bowel: Normal appearance of duodenum, jejunum and ileum. Large bowel: Normal appendix. Unremarkable large bowel and rectum. Free fluid or free air: Small to moderate ascites. No free air. CT/Abdomen/Pelvis WITH Contrast IMPRESSION: Ascites. Cholelithiasis. Correlate for right upper quadrant abdominal pain which might prompt additional ultrasound characterization. No other acute abdominopelvic process. Electronically Signed: Nick Deleon, at 17:40 EDT Tel , Service support , CC: Rudy Hameed DO; Brigido Kauffman MD Triage Clinician: Signed CHEST WITH CONTRAST Observed: 06/25/2018 Status: F Source: [place] 9:58 AM [facility] REPOSITORY [facility] [address] [place] [address] Chest WITH Contrast MR#: [id number] Acct: [id number] Name: ELIEZER GARCIA Rep #: [id number] : 1945 F 73 From: Nick Deleon MD PCP: Ruyd Hameed DO Status: REG CLI Study: Chest WITH Contrast Date of Exam: 06/25/18 Exam# [id number] Ordering Dr: Brigido Kauffman MD STUDY: CT CHEST WITH CONTRAST REASON FOR EXAM: Female, 73 years old. Rule out metastases. Nausea, vomiting and diarrhea. RADIATION DOSAGE (If Supplied By Facility): CTDIvol = ( 12.65 ) mGy, DLP = ( 216.62 ) mGycm TECHNIQUE: Transaxial imaging was performed following intravenous administration of 100 ml of Isovue 300 contrast material. : Sagittal 2-D MPR Individualized dose optimization techniques were used for this CT. COMPARISON: CT abdomen and pelvis same date. CT chest 09/30/2009.. FINDINGS: Supraclavicular: Normal. Body wall soft tissues: Postsurgical changes of the right breast and right axilla with no apparent mass or lymphadenopathy. Right mastectomy. No visible other malady of the left breast and no left axillary lymphadenopathy. Osseous structures: Kyphoscoliosis, osteopenia. There is a sclerotic focus within the vertebral body at T12, measuring 7.5 mm in diameter. This should be regarded with suspicion for metastatic disease. This was not present on the study of 2009. Mediastinum: Minimal sliding hiatal hernia. Evidence of gastroesophageal reflux to the proximal 3rd of the esophagus. A few small lymph nodes are present in the mediastinum, none pathologically enlarged. There is no hilar lymphadenopathy. Cardiovascular: Unremarkable appearance of the heart with the exception of mitral annulus calcifications. No significant coronary cusp secretions are visible. Nondilated aorta. Unremarkable pulmonary artery arborization. Lungs: Mild subpleural reticulation. This could reflect prior smoking history. There is a noncalcified pulmonary nodule the left lower lobe lateral basilar measuring 4.4 mm, series 6 image 81. No other significant pulmonary nodules. That pulmonary nodule was not present on prior imaging of 2009. CT/Chest WITH Contrast IMPRESSION: Small sclerotic focus within the T12 vertebral body must be regarded with suspicion for the possibility of metastatic disease. No other lesions are apparent. Consider follow-up nuclear medicine bone scan. Small left-sided pulmonary nodule, in the left lower lobe, measuring approximate 4.4 mm. This is nonspecific. Electronically Signed: Nick Deleon, at 17:45 EDT Tel , Service support , CC: Rudy Hameed DO; Brigido Kauffman MD Triage Clinician: Signed ONCOLOGY VISIT REPORT Observed: 06/17/2018 Status: F Source: [place] 1:41 PM [facility] REPOSITORY [facility] [address] [place] [address] OFFICE VISIT Date of Service: 06/17/18 1331 MR#: [id number] Acct: [id number] Name: RADHA,ELIEZER Wagner Rep #: [id number] : 1945 From: Brigido Kauffman MD Age/Sex: 73/F Location: OMD Status: Signed Subjective - Date of Service Date of Service:: 06/17/18 - Chief Complaint Follow up-breast cancer - History of Present Illness 73y.o.woman was diagnosed with Stage IIIA (pT2, pN2, M0), ER/NJ positive, HER2 amplified, grade 2 infiltrating lobular carcinoma of the right breast on 01/13/2009. S/P lumpectomy on 02/15/2009. S/P right MRM and axillary dissection on 03/15/2009. S/P TCH chemotherapy x6 cycles, completed 08/05/2009, and Herceptin maintenance until March 2010. S/P XRT to the right mastectomy site and right supraclavicular area, completed 11/19/2009. Was on Femara from 09/17/2009 till November 2017. Comes in for follow up. She has constipation, poor appetite and weight loss over the last 3 months. Vomited last Sunday. CXR a few months ago at [facility] showed a nodule. - Past Medical/Social History Past Medical History Past Medical History: Heart disease Cancer: Breast cancer Past Surgical History Surgical: Back, section,Hysterectomy,Lumpectomy, Tonsillectomy Other Surgical History: LAPAROSCOPY Back Surgery Jul 2015 Family History Paternal Past Medical History: Heart disease Maternal Past Medical History: Unknown Maternal History of Cancer: Thyroid cancer Social History Social History: No changes Smoking Status Never smoker Review of Systems Constitutional:: Reports: Appetite change. Denies: Fever, Sweats, Weight loss, Chills Cardiovascular:: Denies: Chest pain, Palpitations, Dyspnea on exertion, Orthopnea, PND, Shortness of breath Respiratory: Denies: Cough, Hemoptysis, Shortness of Breath, Wheezing Gastrointestinal:: Reports: Vomiting, Constipation. Denies: Nausea, Diarrhea Genitourinary: Denies: Dysuria, Hematuria, 15, Flank pain Musculoskeletal:: Denies: Back pain, Myalgia, Arthralgia Skin: Denies: Rash, Skin Changes, Wounds Neurological:: Denies: Headache, Dizziness, Visual changes, Tinnitus, Hearing loss Psychiatric: Denies: Anxiety, Depression, Homicidal Ideations, Suicidal Ideations Vital Signs Height 5 ft 4 in Weight: 65.771 kg Weight in Pounds 145.0 lbs Pulse Ox 95 - Physical Exam General: Alert, Oriented x3, No apparent distress HEENT: Atraumatic, PERRLA, EOMI, Normocephalic Oropharynx:: Dry mucosa Neck:: Supple, Trachea midline. Negative for: JVD, bilateral Cardiac:: Regular rate, Regular rhythm, Normal S1, Normal S2. Negative for: Murmur Lungs: Clear to auscultation, Excusion symmetrical. Negative for: Rhonchi, Wheezes Abdomen:: Bowel sounds x 4, Soft, Non-tender, Non-distended. Negative for: Hepatosplenomegaly Extremities:: Negative for: Cyanosis, Edema Lymphatics:: Negative for: Cervical lymphadenopathy, Supraclavicular lymphadenopathy, Axillary lymphadenopathy Breast:: - - R MRM scar, L breast no masses. Laboratory Data: Laboratory Tests WBC 6.7 (4.4-11.0) K/mm3 RBC 4.12 L (4.2-5.4) M/mm3 Hgb 11.6 L (12.0-15.0) g/dl Assessment and Plan Right breast cancer stage IIIA on adjuvant hormonal therapy with Femara. No evidence of disease clinically. Osteopenia Weight loss, Lung nodule R/O metastatic disease. Plan is to obtain CT chest/abdomen and pelvis. RTC 1 month. Medications: Prescriptions This Visit Medication Instructions Recorded Primary Care Provider: Rudy Hameed Referring Provider: - Problem List (1) History of right breast cancer Status: Chronic (2) Osteopenia Status: Chronic (3) Weight loss Status: Acute Code Visit Office Visits / Consults: 25030 OV L4 Est 06/17/18 1341 <Electronically signed by Brigido Kauffman MD> Date Brigido Kauffman MD Cosigner Signature: Date (if applicable) CC: CBC W/DIFF, AUTOMATED Collected: 06/17/2018 Status: F Source: [facility] 12:57 PM [facility] REPOSITORY Order Comment: Reason for Laboratory Test . TYPE CODE TESTS RESULT OUT OF RANGE REFERENCE UNITS LAB L100.1000 4.4-11.0 K/mm3 Normal WBC 6.7 LAB L100.1200 4.2-5.4 M/mm3 Low RBC 4.12 LAB L100.1300 12.0-15.0 g/dl Low HGB 11.6 LAB L100.1400 37-47 % Normal HCT 37.2 LAB L100.1500 81-99 fL Normal MCV 90.3 LAB L100.1600 27.0-32.0 pg Normal MCH 28.2 LAB L100.1700 32-36 g/gl Low MCHC 31.2 LAB L100.1810 11.6-14.6 % High RDW CV 15.9 LAB L100.1820 35.1-43.9 fl High RDW SD 52.4 LAB L100.1900 150-450 K/mm3 Normal PLT 205 LAB L100.2000 6.2-12.0 fl Normal MPV 11.0 LAB L100.2100 47-70 % High NEUT% 76.6 LAB L100.2200 19-41 % Low LY% 11.8 LAB L100.2300 0-10 % High MONO% 10.5 LAB L100.2400 0-5 % Normal EO% 0.7 LAB L100.2500 0-1 % Normal BASO% 0.3 LAB L100.2550 0.0-0.9 % Normal IM GRAN % 0.100 Result Comment: IG% - Immature Granulocytes (promyelocytes, myelocytes and metamyelocytes) > 1% indicates that a LEFT SHIFT is Present. LAB L100.2620 2.0-7.7 X10 3/uL Normal Absolute Neut 5.1 LAB L100.2720 0.83-4.51 X10 3/ul Low Absolute Lymph 0.79 Performed By: #### L100.0100, L500.4050 #### [facility] [address] [place], [place], [id number] COMPREHENSIVE METABOLIC Collected: 06/17/2018 Status: F Source: [facility] 12:57 PM [facility] REPOSITORY Order Comment: Reason for Laboratory Test . TYPE CODE TESTS RESULT OUT OF RANGE REFERENCE UNITS LAB L501.0100 74-106 mg/dL Normal GLU 91 Result Comment: Please note revised GLUCOSE reference range effective 2017. LAB L501.1000 7-18 mg/dL Normal BUN 15 LAB L501.1100 0.55-1.02 mg/dL Normal CREAT,SERUM 0.72 Result Comment: The validity of the calculated GFR AND GFRAA in patients over 70 years has not been determined. Clinical correlation is essential. LAB L501.1110 >60 mL/min Normal EST GFR 84 Result Comment: Non- GFR Calc LAB L501.1115 >60 mL/min Normal EST GFR - AA 101 Result Comment: GFR Calc LAB L501.1255 ml/min Normal Estimated CRCL 42.62 LAB L501.1300 10-20 RATIO High BUN/CRE 20.7 LAB L501.1500 6.4-8. g/dL Normal 2 T PROT 6.9 LAB L501.1800 3.2-5. g/dL Normal 0 ALB 3.4 LAB L501.1950 2.2-4. g/dL Normal 2 GLOB 3.5 LAB L501.2000 0.9-2. RATIO Normal 4 A/G 1.0 LAB L501.2200 8.5-10 mg/dL Normal .1 CA 8.8 LAB L501.4100 15-37 U/L Normal AST 21 LAB L501.4305 45-117 U/L Normal ALK P 80 LAB L501.4405 13-56 U/L Normal ALT 25 LAB L501.4600 0.20-1 mg/dL Normal .00 T BILI 0.30 LAB L501.5300 136-14 mmol/L Normal 5 NA 140 LAB L501.5600 3.5-5. mmol/L Normal 1 K 4.4 LAB L501.5900 98-107 mmol/L Normal CL 104 LAB L501.6100 21.0-3 mmol/L Normal 2.0 CO2 29.0 LAB L501.6200 5-15 Normal GAP 7 Performed By: #### L100.0100, L500.4050 #### [facility] [address] [place], [address] XR CHEST 2 VIEWS Observed: 05/29/2018 Status: F Source: [facility] 12:53 PM [facility] REPOSITORY ORIGINAL XR CHEST 2 VIEWS CLINICAL STATEMENT: abn radiologic findings of lung field. COMPARISON: Chest radiograph 04/27/2018 FINDINGS: The cardiomediastinal contours are stable. There is persistent hazy airspace opacity within the RIGHT apex. No new areas of consolidation. No vascular congestion, large pleural effusion or pne umothorax. Surgical clips are seen within the RIGHT axilla. Degenerative and postsurgical changes are seen within the spine. IMPRESSION: Slight improved aeration of the RIGHT apex. Continued follow- up to document complete resolution is advised. Interpreted By: Nasrin Puri MD Preliminary Report By: Nasrin Puri MD Electronically Signed By: Nasrin Puri MD Dictated Date: 05/29/2018 3:49:24 PM Prelim Date: 05/29/2018 3:50:07 PM Sign Date: 05/29/2018 5:39:18 PM TROPI Collected: 04/27/2018 Status: F Source: [facility] 10:31 AM [facility] REPOSITORY TYPE CODE TESTS RESULT OUT OF REFERENCE UNITS RANGE LAB TROPI(LOINC 0.000-0.040 ng/mL ) Troponin I <0.015 Result Comment: Troponin I reference ranges (05/25/14): 0.00-0.040 ng/mL Negative and non-diagnostic. >0.040 ng/mL Consistent with cardiac damage, increased clinical risk and possibility of myocardial infarction. Serial measurements, a rise & fall in test results, clinical history, appropriate symptoms and/or ECG changes may help assess possibility of TN. *Other non-acute coronary syndrome conditions such as CHF, myocarditis, pulmonary emboli, sepsis and cardiac surgery could result in myocardial damage and increased troponin levels. Performed By: #### TROPI #### [place] [address] NM MYOCARDIAL SPECT Observed: 04/27/2018 Status: F Source: [facility] 8:15 AM [facility] REPOSITORY ORIGINAL NM MYOCARDIAL SPECT STRESS/REST CLINICAL STATEMENT: Chest pain TECHNIQUE: Adenosine dose:39.2 mg Radiopharmaceutical (stress): Tc-99m Sestamibi Dose:23 mCi Radiopharmaceutical (rest): Tc-99m Sestamibi Dose:7 mCi SPECT acquisition and processing Reconstruction and reorientation of SPECT images into short axis, vertical and horizontal long axis planes Quantitative LVEF assessment COMPARISON:None provided. QUALITY OF STUDY: Technically adequate study. LV END DIASTOLIC VOLUME: 42 mL. REPORT:Gated SPECT images reveal normal LV size and systolic function normal thickening of all myocardial segments LVEF is greater than 65%. Myocardial segmental perfusion is within normal limits. IMPRESSION:Normal myocardial perfusion scan. Normal LV size and systolic function LVEF is greater than 65%. Interpreted By: Guicho Cantrell MD Preliminary Report By: Guicho Cantrell MD Electronically Signed By: Guicho Cantrell MD Dictated Date: 04/27/2018 2:01:05 PM Prelim Date: 04/27/2018 2:01:05 PM Sign Date: 04/27/2018 2:02:56 PM TROPI Collected: 04/27/2018 Status: F Source: [facility] 5:13 AM [facility] REPOSITORY TYPE CODE TESTS RESULT OUT OF REFERENCE UNITS RANGE LAB TROPI(LOINC 0.000-0.040 ng/mL ) Troponin I <0.015 Result Comment: Troponin I reference ranges (05/25/14): 0.00-0.040 ng/mL Negative and non-diagnostic. >0.040 ng/mL Consistent with cardiac damage, increased clinical risk and possibility of myocardial infarction. Serial measurements, a rise & fall in test results, clinical history, appropriate symptoms and/or ECG changes may help assess possibility of TN. *Other non-acute coronary syndrome conditions such as CHF, myocarditis, pulmonary emboli, sepsis and cardiac surgery could result in myocardial damage and increased troponin levels. Performed By: #### TROPI #### [place] [address] XR CHEST 2 VIEWS Observed: 04/27/2018 Status: F Source: [facility] 2:58 AM [facility] REPOSITORY ORIGINAL XR CHEST 2 VIEWS, 04/27/2018 3:00 AM INDICATION: Chest Pain COMPARISON: September 2014 FINDINGS: There are surgical clips in the RIGHT axilla. Is mild hazy opacification in the RIGHT apex. There are a few streaky airspace opacities in the LEFT base. The lungs are otherwise clear. The pulm onary vasculature is unremarkable in appearance. The cardiac silhouette is within normal size limits. IMPRESSION: Mild RIGHT apical consolidation. This process should be followed to radiographic resolution. Interpreted By: Wyatt Zepeda MD Preliminary Report By: Wyatt Zepeda MD Electronically Signed By: Wyatt Zepeda MD Dictated Date: 04/27/2018 3:09:01 AM Prelim Date: 04/27/2018 3:09:01 AM Sign Date: 04/27/2018 3:10:40 AM CBC Collected: 04/27/2018 Status: F Source: [facility] 2:06 AM [facility] REPOSITORY TYPE CODE TESTS RESULT OUT OF REFERENCE UNITS RANGE LAB WBC(LOINC) 4.60-10.80 10 3/mcL Low WBC 3.70 LAB RBCCT(LOINC 4.20-5.40 10 6/mcL ) RBC 4.20 LAB HGB(LOINC) 12.0-16.0 G/dL Hgb 12.7 LAB HCT(LOINC) 37.0-47.0 % Low Hct 36.7 LAB MCV(LOINC) 80.0-94.0 fL MCV 87.4 LAB MCH(LOINC) 27.0-31.2 pg MCH 30.2 LAB MCHC(LOINC) 33.0-37.0 G/dL MCHC 34.5 LAB RDW(LOINC) 11.5-14.5 % High RDW 14.9 LAB PLT(LOINC) 130-400 10 3/mcL Platelet 155 LAB MPV(LOINC) 7.4-10.4 fL MPV 10.2 Performed By: #### TROP, GFR, BMP #### [place] [address] #### ANEU, ADIFF, CBC #### [address] [address] .AUTO DIFF Collected: 04/27/2018 Status: F Source: [facility] 2:06 AM [facility] REPOSITORY TYPE CODE TESTS RESULT OUT OF REFERENCE UNITS RANGE LAB ERIN(LOINC) 37.0-80.0 % Neutrophil % 66.1 LAB LYM(LOINC) 10.0-50.0 % Lymphocyte % 14.9 LAB MON(LOINC) 1.7-13.0 % Monocyte High % 17.2 LAB EO(LOINC) 0.0-7.0 % Eosinophil % 1.1 LAB BAS(LOINC) 0.0-2.5 % Basophil % 0.7 LAB ABLYM(LOIN 0.77-3.85 10 3/mcL C) Low Lymphocyte, 0.50 Absolute LAB VARGHESE(LOINC 0.15-1.00 10 3/mcL ) Monocyte, 0.60 Absolute LAB AEOS(LOINC 0.00-0.40 10 3/mcL ) Eosinophil, 0.00 Absolute LAB ABAS(LOINC 0.00-0.19 10 3/mcL ) Basophil, 0.00 Absolute Performed By: #### TROP, GFR, BMP #### [place] [address] #### ANEU, ADIFF, CBC #### [address] [address] .NEUABS Collected: 04/27/2018 Status: F Source: [facility] 2:06 AM [facility] REPOSITORY TYPE CODE TESTS RESULT OUT OF REFERENCE UNITS RANGE LAB ANEU(LOINC) 2.85-6.16 10 3/mcL Low Neutrophil, 2.40 Absolute Performed By: #### TROP, GFR, BMP #### [place] [address] #### ANEU, ADIFF, CBC #### [address] [address] TROP Collected: 04/27/2018 Status: F Source: [facility] 2:06 AM [facility] REPOSITORY TYPE CODE TESTS RESULT OUT OF REFERENCE UNITS RANGE LAB TROP(LOINC) 0.000-0.040 ng/mL Troponin <0.020 Result Comment: Troponin I reference range: 0.00-0.040 ng/mL Negative and non-diagnostic. >0.040 ng/mL Consistent with cardiac damage, increased clinical risk and possibility of myocardial infarction. Serial measurements, a rise & fall in test results, clinical history, appropriate symptoms and/or ECG changes may help assess possibility of TN. *Other non-acute coronary syndrome conditions such as CHF, myocarditis, pulmonary emboli, sepsis and cardiac surgery could result in myocardial damage and increased troponin levels. Performed By: #### TROP, GFR, BMP #### [place] [address] #### ANEU, ADIFF, CBC #### [address] [address] BMP Collected: 04/27/2018 Status: F Source: [facility] 2:06 [facility] REPOSITORY TYPE CODE TESTS RESULT OUT OF REFERENCE UNITS RANGE LAB GLU(LOINC) 83-110 mg/dL Glucose Level 106 LAB NA(LOINC) 136-145 mmol/L Sodium Level 138 LAB K(LOINC) 3.5-5.1 mmol/L Potassium Level 4.0 LAB CL(LOINC) 98-107 mmol/L Chloride 101 LAB CO2(LOINC) 23-31 mmol/L CO2 28 LAB EBAL(LOINC mEq/L ) Electrolyte Balance 9.0 LAB BUN(LOINC) 7-18 mg/dL BUN 12 LAB CRE(LOINC) 0.55-1.02 mg/dL Creatinine Lvl (s) 0.78 LAB BC(LOINC) 7-27 ratio BUN/Creatinine 15 Ratio LAB CA(LOINC) 8.4-10.2 mg/dL Calcium Lvl 9.6 Performed By: #### TROP, GFR, BMP #### [address] [address] #### ANEU, ADIFF, CBC #### [place] [address] [address] .GFR Collected: 04/27/2018 Status: F Source: [facility] 2:06 AM [facility] REPOSITORY TYPE CODE TESTS RESULT OUT OF REFERENCE UNITS RANGE LAB GFRAA(LOINC ml/min/1.73 ) sqm GFR 88 [place] Result Comment: GFR Population mean for , Non- Americans Ages 20-29 = 116 mL/min/1.73 sq.m. Ages 30-39 = 107 mL/min/1.73 sq.m. Ages 40-49 = 99 mL/min/1.73 sq.m. Ages 50-59 = 93 mL/min/1.73 sq.m. Ages 60-69 = 85 mL/min/1.73 sq.m. Ages 70+ = 75 mL/min/1.73 sq.m. Chronic Kidney Disease: Less than 60 mL/min/1.73 square meters End Stage Renal Disease: Less than 15 mL/min/1.73 square meters LAB GFRNO(LOINC) ml/min/1.73sqm GFR Non- 72 Result Comment: GFR Population mean for , Non- Americans Ages 20-29 = 116 mL/min/1.73 sq.m. Ages 30-39 = 107 mL/min/1.73 sq.m. Ages 40-49 = 99 mL/min/1.73 sq.m. Ages 50-59 = 93 mL/min/1.73 sq.m. Ages 60-69 = 85 mL/min/1.73 sq.m. Ages 70+ = 75 mL/min/1.73 sq.m. Chronic Kidney Disease: Less than 60 mL/min/1.73 square meters End Stage Renal Disease: Less than 15 mL/min/1.73 square meters Performed By: #### TROP, GFR, BMP #### [address] [address] #### ANEU, ADIFF, CBC #### [place] [place] [id number] [place], [place] [address] ONCOLOGY VISIT REPORT Observed: 12/11/2017 Status: F Source: [place] 2:19 PM [facility] REPOSITORY [facility] [place] [address] OFFICE VISIT Date of Service: 12/10/17 1450 MR#: [id number] Acct: [id number] Name: ELIEZER GARCIA Rep #: [id number] : 1945 From: Brigido Kauffman MD Age/Sex: 72/F Location: OMD Status: Signed Subjective - Date of Service Date of Service:: 12/10/17 - Chief Complaint Follow up-breast cancer - History of Present Illness 72y.o.woman was diagnosed with Stage IIIA (pT2, pN2, M0), ER/NJ positive, HER2 amplified, grade 2 infiltrating lobular carcinoma of the right breast on 01/13/2009. S/P lumpectomy on 02/15/2009. S/P right MRM and axillary dissection on 03/15/2009. S/P TCH chemotherapy x6 cycles, completed 08/05/2009, and Herceptin maintenance until March 2010. S/P XRT to the right mastectomy site and right supraclavicular area, completed 11/19/2009. On Femara since 09/17/2009. Comes in for follow up. - Past Medical/Social History Past Medical History Past Medical History: Heart disease Cancer: Breast cancer Past Surgical History Surgical: Back, section,Hysterectomy,Lumpectomy, Tonsillectomy Other Surgical History: LAPAROSCOPY Back Surgery Jul 2015 Family History Paternal Past Medical History: Heart disease Maternal Past Medical History: Unknown Maternal History of Cancer: Thyroid cancer Social History Social History: No changes Smoking Status Never smoker Review of Systems Constitutional:: Denies: Fever, Sweats, Weight loss, Appetite change, Chills Cardiovascular:: Denies: Chest pain, Palpitations, Dyspnea on exertion, Orthopnea, PND, Shortness of breath Respiratory: Denies: Cough, Hemoptysis, Shortness of Breath, Wheezing Gastrointestinal:: Denies: Abdominal pain, Nausea, Vomiting, Diarrhea, Constipation, Hematochezia Genitourinary: Denies: Dysuria, Hematuria, 15, Flank pain Musculoskeletal:: Denies: Back pain, Myalgia, Arthralgia Skin: Reports: Rash - R and L lower legs. Denies: Skin Changes, Wounds Neurological:: Denies: Headache, Dizziness, Visual changes, Tinnitus, Hearing loss Psychiatric: Denies: Anxiety, Depression, Homicidal Ideations, Suicidal Ideations Vital Signs Height 5 ft 4 in Weight: 70.307 kg Weight in Pounds 155.0 lbs Pulse Ox 98 - Physical Exam General: Alert, Oriented x3, No apparent distress HEENT: Atraumatic, PERRLA, EOMI, Normocephalic Oropharynx:: Dry mucosa Neck:: Supple, Trachea midline. Negative for: JVD, bilateral Cardiac:: Regular rate, Regular rhythm, Normal S1, Normal S2. Negative for: Murmur Lungs: Clear to auscultation, Excusion symmetrical. Negative for: Rhonchi, Wheezes Abdomen:: Bowel sounds x 4, Soft, Non-tender, Non-distended. Negative for: Hepatosplenomegaly Extremities:: Negative for: Cyanosis, Edema Neurological: Neuro grossly intact Skin:: Lesions - 3cm hyperpigmented, depressed plaque R medial malleolar area. 2 cm simillar lesion on the left. Psychiatric:: Appropriate affect, Euthymic Lymphatics:: Negative for: Cervical lymphadenopathy, Supraclavicular lymphadenopathy, Axillary lymphadenopathy Breast:: - - deferred. Diagnostic Data: 12/03/2017 bone density done at [facility] reviewed, shows osteopenia left femoral neck. mammogram left breast done at [facility] reviewed, showed no evidence of malignancy, 1 year follow-up is recommended. Assessment and Plan Right breast cancer stage IIIA on adjuvant hormonal therapy with Femara. No evidence of disease clinically. Osteopenia. Rashes on the legs, rule out panniculitis. Discussed risks benefits and side effects of continuing Femara beyond 5 years with the patient. She decided to discontinue it because there was no evidence of benefit beyond 5 years. Plan is to discontinue Femara and do observation. Obtain Dermatology and Vascular consults for Rash on the legs. RTC 6 months with cbc, cmp. Medications: Prescriptions This Visit Medication Instructions Recorded Biotin 1,000 mcg PO DAILY 12/13/16 Primary Care Provider: Rudy Hameed Referring Provider: - Problem List (1) History of right breast cancer Status: Chronic (2) Osteopenia Status: Chronic (3) Panniculitis of other sites Status: Chronic Code Visit Office Visits / Consults: 56277 OV L4 Est 12/11/17 1419 <Electronically signed by Brigido Kauffman MD> Date Brigido Kauffman MD Cosigner Signature: Date (if applicable) CC: BD BONE DENSITY DEXA Observed: 12/03/2017 Status: F Source: [employer] AXIAL SKELETON 11:00 AM FOUNDATION REPOSITORY ORIGINAL BONE DENSITOMETRY CLINICAL STATEMENT: PERSONAL HX BREAST CA, SCREENING FOR OSTEOPOROSIS, AROMATASE INHIBITOR USE , POST MENOPAUSAL COMPARISON: 11/20/2015 T. Score Left Femoral Neck: -1.6 BMD (g/cm2) Left Femoral Neck: 0.668 T. Score Left Hip: -1.2 BMD (g/cm2) Left Hip: 0.796 T. Score 1/3 Left Forearm: -1.2 BMD (g/cm2) Left Forearm: 0.615 T. Score 1/3 Right Forearm: -0.7 BMD (g/cm2) Right Forearm: 0.642 COMMENTS:rt forearm was done in 2015, done for comparison today CONCLUSION: The patient is considered osteopenic based on the left femoral neck which has a T score of -1.6. BMD Change from previous Hip: -4.3 Percent BMD Change from previous Lumbar Spine:na Percent BMD Change from previous Right forearm: 9.0 Percent *By the World Health Organization standards: Osteopenia is present when the bone mineral density is greater than 1 standard deviation (SD) but less than 2.5 SDs below a young normal sex matched populati on. Osteoporosis is present when the bone mineral density is equal to or greater than 2.5 SDs below a young normal sex matched population. Interpreted By: Keanu Glasgow MD Preliminary Report By: Keanu Glasgow MD Electronically Signed By: Keanu Glasgow MD Dictated Date: 12/03/2017 3:20:41 PM Prelim Date: 12/03/2017 3:20:41 PM Sign Date: 12/03/2017 3:37:47 PM MA MAMMOGRAM SCREENING Observed: 12/03/2017 Status: F Source: [facility] LEFT W/SUMAN 10:30 AM FOUNDATION REPOSITORY ORIGINAL FROM: [facility] [address], [place] [address] PROCEDURE FOR: ELIEZER GREGORYZWATER [address] [place] [address] Home: PID#: [id number] Exam#: [id number] : 1945 Age: 72 TO: PAULA SHELTON [facility] [address] [place] [id number] #[id number] LEFT DIGITAL SCREENING MAMMOGRAM 3D/2D WITH CAD WITH MEDIOLATERAL OBLIQUE CRANIOCAUDAL: 12/03/2017 Comparison is made to exams dated: 12/01/2016 mammogram and 11/30/2015 mammogram - [facility]. There are scattered fibroglandular elements in the left breast. Current study was also evaluated with a Computer Aided Detection (CAD) system. There are benign scattered calcifications in the left breast. No significant masses, calcifications, or other findings are seen in the breast. There has been no significant interval change. IMPRESSION: BENIGN There is no mammographic evidence of malignancy. A 1 year screening mammogram is recommended. GRISELDA ERICKSON MD cc/penrad:12/03/2017 16:55:50 copy to: RUDY HAMEED DO, ph: [phone], fax: [phone] Periodicals Library Assistant: SANFORD LOVE (Rasheed)(M), [facility] letter sent: Normal BI-RADS 1&2 Mammogram BI-RADS: 2 Benign VL ARTERIAL BILATERAL Observed: 11/09/2017 Status: F Source: [facility] LOWER EXT PVR 8:42 AM FOUNDATION REPOSITORY ORIGINAL VL ARTERIAL BILATERAL LOWER EXT PVR CLINICAL STATEMENT: Claudication, peripheral vascular disease COMPARISON: None FINDINGS: Vascular pressure waveforms were obtained over the proximal and distal thighs and legs, with subsequent calculation of segment- brachial index. Pressure and waveform measurements in the larger arterial vessels of the thigh and legs are within normal limits. The right and left SHAYE are 1.23 and 1.19, respectively, considered within normal limits. Waveform analysis of the right first digit shows decreased amplitude of the arterial waveform as well as decreased digit-brachial index (0.84). IMPRESSION: 1. Normal ankle brachial index bilaterally. 2. Decreased digit-brachial index with decrease in arterial waveform amplitude of the right first digit. This could imply disease proximal to this area. I have personally reviewed the images of this examination and agree with the resident's findings and interpretation. Interpreted By: Hunter Tian MD Preliminary Report By: Reagan Lopez DO Electronically Signed By: Hunter Tian MD Dictated Date: 11/09/2017 10:39:21 AM Prelim Date: 11/09/2017 10:49:43 AM Sign Date: 11/09/2017 10:54:06 AM XR HUMERUS MINIMUM 2 Observed: 09/18/2017 Status: F Source: [employer] VIEWS LEFT 2:53 PM [facility] REPOSITORY ORIGINAL XR HUMERUS MINIMUM 2 VIEWS LEFT CLINICAL STATEMENT: Bilat upper extremity pain COMPARISON: None FINDINGS:2 images of the left shoulder reveal no cortical disruption or destruction. There is no soft tissue abnormality of acute nature. There is calcific density present along the greater tuberosity c onsistent with incidental calcific bursitis or tendinitis. Partial visualization of the left hemithorax is noncontributory IMPRESSION:Chronic changes. No acute process Interpreted By: Griselda Erickson MD Preliminary Report By: Griselda Erickson MD Electronically Signed By: Griselda Erickson MD Dictated Date: 09/19/2017 1:11:16 PM Prelim Date: 09/19/2017 1:11:16 PM Sign Date: 09/19/2017 1:11:45 PM XR HUMERUS MINIMUM 2 Observed: 09/18/2017 Status: F Source: [employer] VIEWS RIGHT 2:53 PM FOUNDATION REPOSITORY ORIGINAL XR HUMERUS MINIMUM 2 VIEWS RIGHT CLINICAL STATEMENT: Bilat upper extremity pain COMPARISON: None FINDINGS:No acute fracture or dislocation is identified. There is no bony destruction is identified. Postsurgical changes are noted in the right axilla. IMPRESSION:No acute process Interpreted By: Griselda Erickson MD Preliminary Report By: Griselda Erickson MD Electronically Signed By: Griselda Erickson MD Dictated Date: 09/19/2017 2:33:26 PM Prelim Date: 09/19/2017 2:33:26 PM Sign Date: 09/19/2017 2:33:51 PM ALLERGIES ALLERGIES DATE TYPE / CODE NAME / CODE REACTION SEVERITY SOURCE 08/21/2018 Drug No Known Unknown [facility] Allergy/4160 Allergies/F00 Hospital 30137(SNOMED 1713138(RXNOR Repository CT) M) ENCOUNTERS ENCOUNTERS ADMIT/DISCHARGE ACCOUNT NUMBER ADMITTING ENCOUNTER LOCATION SOURCE CLASS 08/29/2018 [id number] Ambulatory [address] [place] [address] IGM4Glmk: System [id number]: Repository [id number] 08/28/2018 [id number] Ambulatory [facility] Repository 08/21/2018 [id number] Ambulatory BMSBuilding: [place] BMS.CF.[facility] Repository 08/21/2018 [id number] Ambulatory [facility] ding:OMD Repository 08/16/2018 [id number] Ambulatory [facility] ding:US Repository 08/01/2018 [id number] Ambulatory BMSBuilding: [place] BMS.CF[facility] Repository 07/25/2018 [id number] Ambulatory BMSBuilding: [place] BMS.CF[facility] Repository 07/19/2018 [id number] Ambulatory [facility] ding:NM Repository 07/15/2018 [id number] Ambulatory BMSBuilding: [place] BMS.CF[facility] Repository 07/02/2018/07/02/20 [id number] Ambulatory [address] ding:[facility] Repository 06/25/2018 [id number] Ambulatory [facility] ding:CT Repository 06/17/2018 [id number] Ambulatory BMSBuilding: [place] BMS.CF.[facility] Repository 05/29/2018/05/29/20 [id number] Ambulatory OTILIA [place]tilia [address] [place] [address] ding:[facility] Repository 04/27/2018/04/27/20 [id number] SADE POP, Ambulatory ABuilding:CD Otilia [address] [facility]: Health 2652Bed: A Foundation Repository 04/27/2018/04/27/20 [id number] Emergency BBuilding:ER Otilia 18 O Health [facility] Repository 12/10/2017 [id number] Ambulatory BMSBuilding: [place] BMS.CF.[facility]ository 12/03/2017/12/04/19 [id number] Ambulatory OTILIA[address] ding:[facility] Repository 11/09/2017/11/09/19 [id number] Ambulatory OTILIA[address] ding:[facility] Repository 09/18/2017/09/18/19 [id number] Ambulatory OTILIA [address] ding:[facility] Repository 09/14/2017/11/28/19 [id number] Ambulatory BBuilding:PH Otilia 18 [facility] Repository PAYERS PAYERS ENCOUNTER GUARANTOR PAYER SUBSCRIBER SOURCE 08/29/2018 Eliezer Edward Primary Eliezer Edward [employer] FitzwaterDOB: Insurance:MedicarePol FitzwaterDOB: System icy Number: Effective [id number] Repository Di Date: [place], [place] [address]Bga: () 08/29/2018 Secondary Eliezer Edward [facility] Insurance:MedicarePol FitzwaterDOB: System icy Number: Effective [id number] Repository Date: 08/29/2018 Tertiary Eliezer Edward [facility] Insurance:[place] Blue FitzwaterDOB: System Cross Blue [id number] Repository ShieldPolicy Number: Effective Date: 08/28/2018 Eliezer Edward Primary Eliezer Edward [employer]Meliliana [employer] FitzwaterDOB: Insurance:MedicarePol [place]DOB: System icy Number: Effective [id number] Repository Excello Date: [place], [place] [address]Zxa: () 08/28/2018 Secondary Eliezer [facility] Insurance:MedicarePol FitzwaterDOB: System icy Number: Effective [id number] Repository Date: 08/28/2018 Tertiary Eliezer [facility] Insurance:[place] Blue FitzwaterDOB: System Cross Blue [id number] Repository ShieldPolicy Number: Effective Date: 08/21/2018 CHRISTELLE Hernandez Primary ELIEZER Edward [place] [id number] Insurance:MEDICARE FITZWATERDOB: Community DI PART A [facility] [id number] Number: Repository [address]Ozg: 330 [id number] [phone] () Date:2016-12-06 08/21/2018 Secondary ELIEZER S [place] Insurance:ANTHEMPolic FITZWATERDOB: Community y Number: [id number] Hospital [id number] Repository Date:0987-28-60AH [address] [place] [address]40[address]CD: 08/21/2018 Tertiary NOT GIVENUNK [place] Insurance:SELF PAY [facility] Number: Effective Repository Date:2018-08-21 08/21/2018 CHRISTELLE Hernandez Primary ELIEZER Edward [place] [id number] Insurance:MEDICARE FITZWATERDOB: [facility] PART A [facility] [id number], [place] Number: Repository [address]Jqa: 330 [id number] [phone] () Date:2016-12-06 08/21/2018 Secondary ELIEZER S [place] Insurance:ANTHEMPolic FITZWATERDOB: Community y Number: [id number] Hospital [id number] Repository Date:3523-97-20FL [address] [place] [address]SK: 08/21/2018 Tertiary NOT GIVENUNK [place] Insurance:SELF PAY [facility] Number: Effective Repository Date:2016-12-06 08/16/2018 CHRISTELLE E Primary ELIEZER S [place] [id number] Insurance:MEDICARE FITZWATERDOB: Community DI PART A [facility] [id number], [place] Number: Repository [address]Tdi: 330 [id number] [phone] () Date:2018-08-01 08/16/2018 Secondary ELIEZER S [place] Insurance:ANTHEMPolic FITZWATERDOB: Community y Number: [id number] Hospital [id number] Repository Date:5367-09-27HB [address] [place] [address] 09398QP: 08/16/2018 Tertiary NOT GIVENUNK [place] Insurance:SELF PAY [facility] Number: Effective Repository Date:2018-08-01 08/01/2018 CHRISTELLE E Primary ELIEZER S [place] [id number] Insurance:MEDICARE FITZWATERDOB: Community DI PART A [facility] [id number], [place] Number: Repository [address]Xic: 330 [id number] [phone] () Date:2016-12-06 08/01/2018 Secondary ELIEZER S [place] Insurance:ANTHEMPolic FITZWATERDOB: Community y Number: [id number] Hospital [id number] Repository Date:9030-11-21HV [address] [place] [address] 20898TM: 08/01/2018 Tertiary NOT GIVENUNK [place] Insurance:SELF PAY [facility] Hospital Number: Effective Repository Date:2018-08-01 07/25/2018 CHRISTELLE E Primary ELIEZER S [place] [id number] Insurance:MEDICARE FITZWATERDOB: Community DI PART A [facility] [id number], [place] Number: Repository [address]Lcu: 330 [id number] [phone] () Date:2016-12-06 07/25/2018 Secondary ELIEZER S [place] Insurance:ANTHEMPolic FITZWATERDOB: Community y Number: [id number] Hospital [id number] Repository Date:1071-12-23IK [address]QMFQESS, [place] [address]QK: 07/25/2018 Tertiary NOT GIVENUNK [place] Insurance:SELF PAY [facility] Number: Effective Repository Date:2018-07-25 07/19/2018 CHRISTELLE E Primary ELIEZER Arboleda [id number] Insurance:MEDICARE FITZWATERDOB: Community DI PART A [facility] [id number], [place] Number: Repository [address]Ftd: 330 [id number] [phone] () Date:2018-07-15 07/19/2018 Secondary ELIEZER S [place] Insurance:ANTHEMPolic FITZWATERDOB: Community y Number: [id number] Hospital [id number] Repository Date:6150-49-98YV [address]DDDPMJQ, [place] [address]ZC: 07/19/2018 Tertiary NOT GIVENUNK [place] Insurance:SELF PAY [facility] Number: Effective Repository Date:2018-07-15 07/15/2018 CHRISTELLE E Primary ELIEZER Edward [place] [id number] Insurance:MEDICARE FITZWATERDOB: [facility] A [facility] [id number], [place] Number: Repository [address]Irn: 330 [id number] [phone] () Date:2016-12-06 07/15/2018 Secondary ELIEZER S [place] Insurance:ANTHEMPolic FITZWATERDOB: Community y Number: [id number] Hospital [id number] Repository Date:5432-02-13VB [address]OBTBQQD, [place] [address]GM: 07/15/2018 Tertiary NOT GIVENUNK [place] Insurance:SELF PAY [facility] Number: Effective Repository Date:2018-07-15 07/02/2018 ELIEZER S Primary ELIEZER Edward [facility] FITZWATERDOB: Insurance:MEDICARE FITZWATERDOB: [facility] [id number] PART [facility] Number: [id number] [id number] [address] [place], [place] Date:2018-07-02 [place] [address]~CHERELLE@ 3105-21-27Iami 69[address]Ycz: (700) SUNILel: Name:[facility] [phone] Administrators LLCPO (HP)Tel: (000) (HP)Tel: (330) [address]Awwocyxzy, 000-0000 (WP) [phone] (WP) [place] [address]LQ: 07/02/2018 Secondary ELIEZER [facility] Insurance:ANTHEM BLUE FITZWATERDOB: [facility] [id number] Repository Number: Adali [facility] [id number] [place], [place] Date:2018-07-02 [address]Hqy: [phone] [id number] [phone] Name:NEREIDA Norris ()Tel: (000) [phone], [place] 000-0000 (WP) [address]CQ: 06/25/2018 CHRISTELLE E Primary ELIEZER Arboleda [id number] Insurance:MEDICARE FITZWATERDOB: [facility] [id number], [place] Number: Repository [address]Big: 330 [id number] [phone] (HP) Date:2018-06-17 06/25/2018 Secondary ELIEZER S [place] Insurance:ANTHEMPolic FITZWATERDOB: [facility] y Number: [id number] Hospital [id number] Repository Date:2663-72-99TN [address] [place] [address]EN: 06/25/2018 Tertiary NOT GIVENUNK [place] Insurance:SELF PAY [facility] Number: Effective Repository Date:2018-06-17 06/17/2018 CHRISTELLE E Primary ELIEZER S [place] [id number] Insurance:MEDICARE FITZWATERDOB: [facility] A [facility] [id number], [place] Number: Repository [address]Sjq: [phone] [id number] [phone] (HP) Date:2016-12-06 06/17/2018 Secondary ELIEZER Arboleda Insurance:ANTHEMPolic FITZWATERDOB: Community y Number: [id number] Hospital [id number] Repository Date:4762-52-50RX [address]HVLUMLC [place] [address]ED: 06/17/2018 Tertiary NOT GIVENUNK [place] Insurance:SELF PAY [facility] Number: Effective Repository Date:2018-06-17 05/29/2018 ELIEZER Edward Primary ELIEZER Edward [facility] FITZWATERDOB: Insurance:MEDICARE FITZWATERDOB: [facility] [id number] [facility]ENTER[facility]icy Number: [id number] Repository [address] [id number] [address] [place], [place] Date:2018-05-29 [place] [address]~CHERELLE@ 3780-51-98Ebyc [address]Loc: (484) OTMAIL.COMTel: Name:[facility] [phone] Administrators LLCPO ()Tel: (000) (HP)Tel: (330) [address] [address]Ysyngaxzd, 000-0000 (WP) [phone] (WP) [place] [address]EI: 05/29/2018 Secondary ELIEZER Wagner [facility] Insurance:ANTHEM BLUE FITZWATERDOB: [facility] [id number] Repository Number: [address] [id number] [facility]ITALSAY[facility] [place] Date:2018-05-29 [address]Ttc: [phone] [id number] [phone] Name:NEREIDA Norris (HP)Tel: 000) [phone], [place] 000-0000 (WP) [address]KF: 04/27/2018 [facility]ER [facility]: Insurance:MEDICARE FITZWATERDOB: [facility] PART BPolicy Number: [id number] Repository DI [id number] Adali [place], [place] Date:2018-04-27 [place] [address]~CHERELLE@ 0195-18-24Dmkl 89[address]Vbb: (330) OTMAIL.COMTel: Name:[facility] [id number] Administrators LLCPO (HP)Tel: (000) (HP)Tel: (330) [address] [address]Zekdsfvjy, 000-0000 (WP) [phone] (WP) [place] [address]DA: 04/27/2018 Secondary [facility]: [facility] [id number] Repository Number: Adali [place] [id number] [place], [place] Date:2018-04-27 [address]Dyp: [phone]) [id number] [phone] Name:RPO Box (HP)Tel: (000) [phone], [place] 000-0000 (WP) [address]TL: 04/27/2018 [facility] Insurance[facility]: [facility] PART BPolicy Number: [id number] Repository DI [id number] Adali [place], [place] Date:2018-04-27 [place] [address]~CHERELLE@ 1026-55-85Fnmx 638[address]Dck: (330) OTMAIL.COMTel: Name:[facility]agner [id number]-521 Administrators LLCPO (HP)Tel: (000) (HP)Tel: (330) [address] [address]Arimicdhd, 000-0000 (WP) [phone] (WP) [place] [address]BF: 04/27/2018 Secondary [facility] Insurance:[facility]: [facility] [id number] Repository Number: [address] [id number] [place], [place] Date:2018-04-27 300[address]Nlb: [phone] [phone] Name:Amy Norris (HP)Tel: 000) [phone], [place] 000-0000 () [address]NM: 12/10/2017 CHRISTELLE E Primary ELIEZER Edward [place] [id number] Insurance:MEDICARE FITZWATERDOB: [facility] PART A [facility] [id number], [place] Number: Repository [address]Qho: 330 [id number] [phone] () Date:2016-12-06 12/10/2017 Secondary ELIEZER Arboleda Insurance:ANTHEMPolic FITZWATERDOB: [facility] y Number: [id number] Hospital [id number] Repository Date:1158-65-72TS [address] [place] [address]ZC: 12/10/2017 Tertiary NOT GIVENUNK [place] Insurance:SELF PAY [facility] Number: Effective Repository Date:2017-12-10 12/03/[address] [facility] FITZWATERDOB: Insurance:MEDICARE FITZWATERDOB: [facility] [id number] PART [facility] Hospital[facility] Number: [id number] Repository [place] [id number] [address] [place], [place] Date:2017-11-30 - [place] [address]~CHERELLE@ 3351-32-86Bjby [address]18[address]Eef: (477) Roger: Name:[facility] [phone] ( Administrators LLCPO (HP)Tel: (000) (HP)Tel: (330) [address] [address]Fwhyatmuk, 000-0000 (WP) [phone] () [place] [address]WY: 12/03/2017 Secondary [facility] Insurance:[facility] CENTERCRISTAL [facility] HOSPITALDOB: [facility] [id number] Repository Number: [address] [id number] [place], [place] Date:2017-11-30 [address]Yyd: [phone] [phone] Name:RPO Box (HP)Tel: (000) 497324Jclvtjp, [place] 000-0000 (WP) [address]LH: 11/09/2017 ELIEZER Edward [facility] FITZWATERDOB: Insurance:MEDICARE FITZWATERDOB: [facility] PART BPolicy Number: [id number] Repository DI [id number] Adali [place], [place] Date:2017-11-09 [place] [address]~CHERELLE@ 3095-49-43Hnyi 528[address]Vvu: (801) OTMAIL.COMTel: Name:[facility] [phone] Administrators LLCPO (HP)Tel: (000) (HP)Tel: (330) [address] [address]Eyeacdcsc, 000-0000 (WP) [phone] (WP) [place] [address]DX: 11/09/2017 Secondary [facility] Insurance:LORENZO [facility]ITALD[facility]: [facility] [id number] Repository Number: [address]ali [place] [id number] [place], [place] Date:2017-11-09 [address]Mnc: ([phone]) 9922-86-83Wqzn [phone] Name:RPO Box (HP)Tel: (000) [phone], [place] 000-0000 (WP) [address]JC: 09/18/[address] [facility] FITZWATERDOB: Insurance:MEDICARE FITZWATERDOB: [facility] PART BPolicy Number: [id number] Repository DI [id number] [address] [place], [place] Date:2017-09-18 [place] [address]~CHERELLE@ 5800-66-31Xsrd [address]Eby: (330) OTMAIL.COMTel: Name:SERGE [phone] ([phone]) Administrators LLCPO (HP)Tel: (000) (HP)Tel: (330) [address] [address]Nuvtfklpb, 000-0000 (WP) [phone] (WP) [place] [address]LJ: 09/18/2017 Secondary [facility] Insurance:[facility]: [facility] [id number] Repository Number: Adali [place] [id number] [place], [place] Date:2017-09-18 [address]Snt: 330 [id number] [phone] Name:[facility] Box (HP)Tel: (000) [phone], [place] 000-0000 (WP) [address]HI: 09/14/2017 [facility] Insurance:MED[facility]ARE [facility]B: [facility] BPolicy Number: [id number] Repository DI [id number] [address] [place], [place] Date:2017-09-14 [place] [address]~CHERELLE@ 4642-05-28Qfet 330[address]Wib: (330) OTMAIL.COMTel: Name:[facility] [phone] Administrators LLCPO (HP)Tel: (000) (HP)Tel: (330) [address] [address]Oayjxlisw, 000-0000 (WP) [phone] (WP) [place] [address]AH: 09/14/2017 Secondary [facility] [facility] [id number] Repository Number: Adali [id number] ZORA GUNDERSON Date:2017-09-14 [id number]: [phone] Name:NEREIDA Norris (AZIZA)Tel: [phone] [place] [phone] WP) [id number]:
== END ==
PROVIDERS: Family Provider Family Medicine; PCP Family Medicine; Referring Provider Internal Medicine Medical Oncology; Visit Provider Internal Medicine Medical Oncology
DX: R93.89 Abnormal findings on diagnostic imaging of other specified body structures (principal); Z85.3 Personal history of malignant neoplasm of breast
CPT/HCPCS: 76705

== ENCOUNTER → 2018-09-06 09:14 | Outpatient (CLI) | payer MEDICARE, BC, SELFPAY ==
[2018-09-04 14:12] VITALS: BMI 23.5
--- NOTE | 2018-09-06 09:15 | ECHODONC_ITS ---
Reason For Study: PRE CHEMO Procedure This was a 2D Doppler, Color Flow transthoracic echocardiogram. Myocardial strain analysis was performed in this exam to aid in the assessment of cardiac function. Exam performed in department. Left Ventricle Normal size and thickness. The estimated ejection fraction is 65 %. Stage 1 diastolic dysfunction. No regional wall motion abnormalities noted. Right Ventricle Mildly dilated right ventricle. A moderator band is seen in the right ventricle. Normal systolic function. Atria Normal left atrium. Normal right atrium. Normal atrial septum. Mitral Valve Mild diffuse mitral valve thickening. Severe mitral annular calcification extending into the posterior leaflet. Tricuspid Valve Normal tricuspid valve. Mild (1+) tricuspid valve insufficiency. Right ventricular systolic pressure estimated to be 37 mmHg. Aortic Valve Normal aortic valve. Trisinus/trileaflet aortic valve. Trivial aortic valve insufficiency. Pulmonic Valve Normal pulmonic valve. Great Vessels Normal aortic root. Mild atherosclerosis of the aortic arch. Normal inferior vena cava. Inferior vena cava collapse with respiration. Pericardium/Pleural No pericardial effusion. MMode/2D Measurements & Calculations LVIDd: 4.0 cm IVSd: 0.84 cm Ao root diam: 3.3 cm LVIDs: 2.7 cm LVPWd: 0.72 cm RVDd: 3.2 cm FS: 31.7 % LAV(MOD-bp): 59.3 ml LVAd ap4: 20.5 cm2 SV(MOD-sp4): 35.0 ml LAV(MOD-bp) Indexed: 36.7 ml/m2 EDV(MOD-sp4): 55.2 ml LAV(MOD-sp2): 49.8 ml EDV(sp4-el): 57.8 ml LAV(MOD-sp4): 69.6 ml LVAs ap4: 11.0 cm2 ESV(MOD-sp4): 20.2 ml ESV(sp4-el): 20.1 ml EF(MOD-sp4): 63.4 % EF(sp4-el): 65.2 % SV(sp4-el): 37.7 ml LA A4 area: 20.4 cm2 LA dimension(2D): 3.5 cm RA A4 area: 13.8 cm2 Time Measurements MV dec time: 0.31 sec Doppler Measurements & Calculations MV E max clemente: 91.8 cm/sec Lat Peak E' Clemente: 8.7 cm/sec Med Peak E' Clemente: 6.9 cm/sec MV A max clemente: 118.7 cm/sec E/E' lat: 10.6 E/E' med: 13.4 MV E/A: 0.77 MV P1/2t max clemente: 121.6 cm/sec Ao V2 max: 146.9 cm/sec LV V1 max: 126.4 cm/sec MV P1/2t: 99.8 msec Ao max P.6 mmHg LV V1 max P.4 mmHg MV dec slope: 356.9 cm/sec2 MVA(P1/2t): 2.2 cm2 PA V2 max: 103.8 cm/sec PI end-d clemente: 85.7 cm/sec TR max clemente: 276.3 cm/sec TR max P.6 mmHg MV P1/2t-pr_phl: 98.4 msec Interpretation Summary The estimated ejection fraction is 65 %. Stage 1 diastolic dysfunction. Mildly dilated right ventricle. Mild (1+) tricuspid valve insufficiency. Right ventricular systolic pressure estimated to be 37 mmHg. Trivial aortic valve insufficiency. Ordering Physician: Brigido Kauffman Referring Physician: ABDIRASHID AG Performed By: Marie Hernandez RDCS
== END ==
PROVIDERS: Family Provider Family Medicine; PCP Family Medicine; Referring Provider Internal Medicine Medical Oncology; Visit Provider Internal Medicine Medical Oncology
DX: Z01.818 Encounter for other preprocedural examination (principal); C50.919 Malignant neoplasm of unspecified site of unspecified female breast; C78.6 Secondary malignant neoplasm of retroperitoneum and peritoneum
CPT/HCPCS: 0399T; 93306

== ENCOUNTER → 2018-09-12 06:11 | Outpatient (CLI) | payer MEDICARE, BC, SELFPAY ==
[2018-09-04 14:12] VITALS: BMI 23.5
--- NOTE | 2018-09-12 06:13 | MRI_ITS ---
STUDY: MRI BRAIN WITH AND WITHOUT CONTRAST REASON FOR EXAM: Female, 73 years old. breast ca w/ mets, no neuro symptoms. TECHNIQUE: Standardized multiplanar fat and water weighted pulse sequences were obtained. 6 ml of Gadavist contrast material was administered intravenously for the contrast portion of the examination. COMPARISON: None. FINDINGS: Normal size of the ventricles and extra-axial spaces for the patient's age. There are a limited number of small white matter hyperintensities, distributed throughout the deep white matter tracts of the cerebral hemispheres, consistent with mild chronic white matter ischemic changes. Normal bilateral basal ganglia. Normal thalami. There is no extra-axial fluid accumulation. Normal flow voids within the major intracranial circulation suggesting patency by spin echo criteria. Normal venous enhancement. There is no enhancing intra-axial or extra-axial abnormality. Normal sella turcica, pituitary gland, infundibular stalk, optic chiasm and hypothalamus. Normal tectal plate and pineal gland. Normal midbrain, david and medulla. Normal cerebellum. Normal basal cisterns. Normal bilateral temporal bones. Normal bilateral internal auditory canals. No demonstrated orbital abnormality, within the constraints of a routine brain study. Normal visualized paranasal sinuses. Normal calvarium and skull base. Normal visualized soft tissue structures. Normal visualized upper cervical spine. MRI/Brain W/WO Contrast IMPRESSION: No acute intracranial abnormality or evidence of metastatic disease Electronically Signed: Robyn Quiros MD at 8:02 EST Tel , Service support ,
[2018-09-12 08:56] LABS: CREATININE FINGERSTICK 0.8 mg/dL (0.55-1.02); EGFR FINGERSTICK > 60.0000 mL/min (>60)
== END ==
PROVIDERS: Family Provider Family Medicine; PCP Family Medicine; Referring Provider Internal Medicine Medical Oncology; Visit Provider Internal Medicine Medical Oncology
DX: C50.911 Malignant neoplasm of unspecified site of right female breast (principal); C78.6 Secondary malignant neoplasm of retroperitoneum and peritoneum
CPT/HCPCS: 70553; A9585

== ENCOUNTER → 2018-10-07 08:29 | Outpatient (CLI) | payer MEDICARE, BC, SELFPAY ==
[2018-09-18 11:31] VITALS: BMI 22.7
--- NOTE | 2018-10-07 08:35 | RAD_ITS ---
STUDY: X-RAY - ESOPHAGUS (BARIUM SWALLOW) WITH FLUOROSCOPY REASON FOR EXAM: Female, 73 years old. Dysphagia for solids. TECHNIQUE: 14 view(s) of the esophagus were obtained following swallowing of barium. FLUOROSCOPY TIME (if supplied): (0:37) minutes/seconds COMPARISON: None. FINDINGS: There is no demonstrated esophageal foreign body. There is no demonstrated stricture or mucosal abnormality. Normal gastroesophageal junction, without a demonstrated hiatal hernia. The patient ingested a 12 mm tablet of barium without any difficulty. There is atherosclerotic calcification of the aortic arch with tortuosity of the descending aorta. Normal visualized pulmonary parenchyma. There are degenerative changes of the visualized thoracic spine. RAD/Esophagus Only IMPRESSION: Normal plain film x-ray examination (barium swallow) of the esophagus. Electronically Signed: Atilio Orr MD at 10:14 EST Tel [phone], Service support ,
--- OUTSIDE RECORDS SUMMARY | 2018-12-09 15:45 | XMS RPT_ITS ---
:1945 Author Organization [facility] Support Name Relationship Address Phone CHRISTELLE SAMPSON Unavailable [address] + [place] [address] R Unavailable Unavailable Unavailable RADHA CHRISTELLE Unavailable [address] + [place] [address] R Unavailable Unavailable Unavailable CHRISTELLE SAMPSON Unavailable [address] + [place] [address] R Unavailable Unavailable Unavailable RADHA CHRISTELLE Unavailable [address] + [place] [address] R Unavailable Unavailable Unavailable RADHA CHRISTELLE Unavailable [address] + [place] [address] R Unavailable Unavailable Unavailable RADHA CHRISTELLE Unavailable [address] + [place] [address] R Unavailable Unavailable Unavailable RADHA CHRISTELLE Unavailable [address] + [place] [address] R Unavailable Unavailable Unavailable Radha Christelle Unavailable Unavailable + Radha Christelle Unavailable Unavailable + RADHA CHRISTELLE Unavailable [address] + [place] [address] R Unavailable Unavailable Unavailable RADHA CHRISTELLE Unavailable [address] + [place] [address] R Unavailable Unavailable Unavailable RADHA CHRISTELLE Unavailable [address] + [place] [address] R Unavailable Unavailable Unavailable RADHA CHRISTELLE Unavailable [address] + [place] [address] R Unavailable Unavailable Unavailable RADHA, CHRISTELLE Unavailable [address] + [place] [address] R Unavailable Unavailable Unavailable RADHA, CHRISTELLE Unavailable [address] + [place] [address] R Unavailable Unavailable Unavailable RADHA, CHRISTELLE Unavailable [address] + [address] [place] [address] RADHA, CHRISTELLE Unavailable [address] + [address] [place] [address] RADHA, CHRISTELLE Unavailable [address] + [place] [address] R Unavailable Unavailable Unavailable RADHA, CHRISTELLE Unavailable [address] + [place] [address] R Unavailable Unavailable Unavailable RADHA, CHRISTELLE Unavailable [address] + [address] [place] [address] RADHA, CHRISTELLE Unavailable [address] + [address] [place] [address] RADHA, CHRISTELLE Unavailable [address] + [address] [place] [address] RADHA, CHRISTELLE Unavailable [address] + [address] [place] [address] RADHA, CHRISTELLE Unavailable [address] + [place] [address] RADHA, CHRISTELLE Unavailable [address] + [place] [address] RADHA, CHRISTELLE Unavailable [address] + [place] [address] R Unavailable Unavailable Unavailable RADHA, CHRISTELLE Unavailable [address] + [place] [address] RADHA, CHRISTELLE Unavailable [address] + [place] [address] RADHA, CHRISTELLE Unavailable [address] + [place] [address] RADHA, CHRISTELLE Unavailable [address] + [place] [address] Care Team Providers Name Role Phone PAULA CASTREJON CNP Attending Unavailable ZARI DO, RUDY D Primary Care Unavailable RAINA CAMARILLO CNP Attending Unavailable ZARI DO, RUDY D Primary Care Unavailable MANNYDRFREDDIE DOJOCELYN Attending Unavailable ZARI DO, RUDY D Primary Care Unavailable JT STUART MD Consulting Unavailable SADE POP, JT Au Admitting Unavailable JT STUART MD Attending Unavailable ZARI DO, RUDY D Primary Care Unavailable CHRISTELLE HOUSER Attending Unavailable ZARI DO, RUDY D Primary Care Unavailable CHRISTELLE HOUSER Attending Unavailable ZARI DO, RUDY D Primary Care Unavailable Andrea Gutierrez Attending Unavailable Zari, Rudy Referring Unavailable Zari, Rudy Primary Care Unavailable Andrea Gutierrez Attending Unavailable Zari, Rudy Referring Unavailable Plymouth, Rudy Primary Care Unavailable PraBrigido dolan Attending Unavailable [place], Rudy Referring Unavailable Zari, Rudy Primary Care Unavailable Brigido Kauffman Consulting Unavailable Pramagdaleno, Brigido Attending Unavailable PrahBrigido Referring Unavailable Zari, Rudy Primary Care Unavailable Brigido Kauffman Attending Unavailable PrahBrigido Referring Unavailable Zari, Rudy Primary Care Unavailable PraBrigido dolan Attending Unavailable Plymouth, Rudy Referring Unavailable Zari, Rudy Primary Care Unavailable PraBrigido dolan Consulting Unavailable Shashank Sr Attending Unavailable PraBrigido dolan Referring Unavailable Eriberto Olsen Attending Unavailable Jabour, Eriberto Referring Unavailable Zari, Rudy Primary Care Unavailable PraBrigido dolan Attending Unavailable Plymouth, Rudy Primary Care Unavailable Plymouth, Rudy Referring Unavailable PraBrigido dolan Attending Unavailable [place], Rudy Referring Unavailable [place], Rudy Primary Care Unavailable Brigido Kauffman Consulting Unavailable PraBrigido dolan Attending Unavailable [place], Rudy Referring Unavailable [place], Rudy Primary Care Unavailable PraBrigido dolan Consulting Unavailable PraBrigido dolan Attending Unavailable PraBrigido dolan Referring Unavailable [place], Rudy Primary Care Unavailable PraBrigido dolan Attending Unavailable Zari, Rudy Referring Unavailable Zari, Rudy Primary Care Unavailable Brigido Kauffman Consulting Unavailable Brigido Kauffman Attending Unavailable PraBrigido dolan Referring Unavailable Plymouth, Rudy Primary Care Unavailable PraBrigido dolan Attending Unavailable [place], Rudy Referring Unavailable [place], Rudy Primary Care Unavailable PraBrigido dolan Consulting Unavailable PraBrigido dolan Attending Unavailable [place], Rudy Referring Unavailable [place], Rudy Primary Care Unavailable Brigido Kauffman Consulting Unavailable PraBrigido dolan Attending Unavailable PrahBrigido Referring Unavailable Zari, Rudy Primary Care Unavailable PraBrigido dolan Attending Unavailable [place], Rudy Referring Unavailable Rudy Hameed Primary Care Unavailable BekaBrigido dolan Consulting Unavailable PROBLEMS PROBLEMS DATE TYPE CONDITION / CODE ATTENDING STATUS SOURCE 09/18/2018 Unknown C50.911 - Malignant Brigido Kauffman Active [facility] neoplasm of Community unspecified site of Hospital right female breast Repository / C50.911(ICD-10) 09/18/2018 Unknown R13.10 - Dysphagia, Brigido Kauffman Active [facility] unspecified / Community R13.10(ICD-10) Hospital Repository 09/27/2018 Unknown Z79.899 - Other Shashank Moran Active [facility] term (current) drug Community therapy / Hospital Z79.899(ICD-10) Repository 08/29/2018 Admitting Secondary malignant Gutierrez, 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 / C78.6(ICD-10) 08/29/2018 Admitting Secondary malignant Guteirrez, 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 / Repository C79.82(ICD-10) 08/29/2018 Admitting Abn findings on dx Gutierrez, Active [facility] Diagnosis imaging of abd [facility] Repository retroperiton / R93.5(ICD-10) 08/29/2018 Admitting Other ascites / Gutierrez, Active [facility] Diagnosis R18.8(ICD-10) [facility] Repository 08/29/2018 Admitting Personal history of Gutierrez, Active [facility] Diagnosis malignant neoplasm [facility] of breast / Repository Z85.3(ICD-10) 08/29/2018 Admitting Nonrheumatic mitral Gutierrez, Active [facility] Diagnosis (valve) prolapse / [facility] I34.1(ICD-10) Repository 08/29/2018 Admitting Acquired absence of Gutierrez, 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 [facility] uterus / Repository Z90.710(ICD-10) 07/15/2018 Unknown M89.9 - Disorder of Brigido Kauffman Active [facility] bone, unspecified / Community M89.9(ICD-10) Hospital Repository 07/15/2018 Unknown R91.1 - Solitary Brigido Kauffman Active [place] pulmonary nodule / Community R91.1(ICD-10) Hospital Repository 07/15/2018 Unknown Z85.3 - Personal Brigido Kauffman Active [facility] history of malignant Community neoplasm of breast / Hospital Z85.3(ICD-10) Repository 06/17/2018 Unknown C50.919 - [facility] of [facility] unspecified female Repository breast / C50.919(ICD-10) 12/11/2017 Unknown R21 - Rash and other Brigido Kauffman nonspecific skin Community eruption / Hospital R21(ICD-10) Repository 12/11/2017 [facility] arteries of Hospital extremities with Repository intermittent claudication, bilateral legs / I70.213(ICD-10) PROCEDURES PROCEDURES No Procedure Records FoundRESULTS RESULTS ESOPHAGUS ONLY Observed: 10/07/2018 Status: F Source: [place] 8:31 AM [facility] REPOSITORY [facility] Imaging Services [address] [place] [address] Esophagus Only MR#: [id number] Acct: [id number] Name: ELIEZER SAMPSON Rep #: [id number] : 1945 F 73 From: Atilio Orr MD PCP: Rudy Hameed DO Status: REG CLI Study: Esophagus Only Date of Exam: 10/07/18 Exam# [id number] Ordering Dr: Eriberto Olsen MD STUDY: X-RAY - ESOPHAGUS (BARIUM SWALLOW) WITH FLUOROSCOPY REASON FOR EXAM: Female, 73 years old. Dysphagia for solids. TECHNIQUE: 14 view(s) of the esophagus were obtained following swallowing of barium. FLUOROSCOPY TIME (if supplied): (0:37) minutes/seconds COMPARISON: None. FINDINGS: There is no demonstrated esophageal foreign body. There is no demonstrated stricture or mucosal abnormality. Normal gastroesophageal junction, without a demonstrated hiatal hernia. The patient ingested a 12 mm tablet of barium without any difficulty. There is atherosclerotic calcification of the aortic arch with tortuosity of the descending aorta. Normal visualized pulmonary parenchyma. There are degenerative changes of the visualized thoracic spine. RAD/Esophagus Only IMPRESSION: Normal plain film x-ray examination (barium swallow) of the esophagus. Electronically Signed: Atilio Orr MD at 10:14 EST Tel [phone], Service support , CC: Rudy Hameed DO; Eriberto Olsen Plant Electrical Engineer: Signed ONCOLOGY VISIT REPORT Observed: 09/18/2018 Status: F Source: [place] 12:38 PM [facility] REPOSITORY [facility] Medical [place] [address] OFFICE VISIT Date of Service: 09/18/18 1215 MR#: [id number] Acct: [id number] Name: ELIEZER SAMPSON Rep #: [id number] : 1945 From: Brigido Kauffman MD Age/Sex: 73/F Location: [facility] Status: Signed Subjective - Date of Service Date of Service:: 09/18/18 - Chief Complaint Follow up for metastatic breast cancer. - History of Present Illness 73y.o.woman was diagnosed with Stage IIIA (pT2, pN2, M0), ER/KY positive, HER2 amplified, grade 2 infiltrating lobular [...] Sunday. CXR a few months ago at [facility] showed a nodule. CT c/a/p on 06/25/2018 showed 4mm nodule LLL, Ascites, sclerotic focus T12, Gallstones. Bone scan done on 07/19/2018 showed DJD. PET/CT on 07/29/2018 showed hypermetabolic activities in hepatic capsule, retroperitoneal and pelvic floor. On 08/01/2018 CEA, CA15- 3, CA27.29, CA125 were all elevated. Laparoscopic biopsy of peritoneum was done by Dr. Colin Gutierrez on 08/29/2018 which showed metastatic carcinoma consistent with lobular breast cancer, ER/KY positive, Her2 3+ positive. She had difficulty swallowing, MRI and swallowing evaluation were requested and comes for follow up. - Past [...] Never smoker Review of Systems Constitutional:: Reports: Fatigue, Weight loss - 20lb Cardiovascular:: Denies: Chest pain, Palpitations, Dyspnea on exertion, Orthopnea, PND, Shortness of breath Respiratory: Denies: Cough, Hemoptysis, Shortness of Breath, Wheezing Gastrointestinal:: Reports: Dysphagia Genitourinary: Denies: Dysuria, Hematuria, 15, Flank pain Musculoskeletal:: Denies: Back pain, Myalgia, Arthralgia Skin: Denies: Rash, Skin Changes, Wounds Neurological:: Denies: Headache, Dizziness, Visual changes, Tinnitus, Hearing loss Psychiatric: Denies: Anxiety, Depression, Homicidal Ideations, Suicidal Ideations Vital Signs Height 5 ft 4 in Weight: 60.146 kg Weight in Pounds 132.6 lbs Pulse Ox 99 - Physical Exam General: Alert, Oriented x3, No apparent distress Diagnostic Data: Diagnostic Data PET, CT Tumor [...] not fulfill quantitative criteria for viable neoplasm. (Reji, Journal of Clinical Oncology 16:2142, 1998). Electronic Signature Nick Tineo D.O. Electronically Signed: Nick Tineo DO at 22:33 EST Tel , Service support , 09/06/2018 Echocardiogram reviewed.. Interpretation Summary The estimated ejection fraction is 65 %. Stage 1 diastolic dysfunction. Mildly dilated right ventricle. Mild (1+) tricuspid valve insufficiency. Right ventricular systolic pressure estimated to be 37 mmHg. Trivial aortic valve insufficiency. 09/12/2018 MRI brain reviewed. MRI/Brain W/WO Contrast IMPRESSION: No acute intracranial abnormality or evidence of metastatic disease Electronically Signed: Robyn Quiros MD at 8:02 EST Assessment and Plan Peritoneal metastasis from lobular breast carcinoma, ER/KY positive, Her2 3+ positive. History of Right breast cancer stage IIIA, lobular type, finished adjuvant hormonal therapy with Femara. No Malignant Ascites. CEA/CA15-3, CA27.29, CA125 elevated. Dysphagia. EF is 65%. Discussed management of metastatic breast cancer, sequential treatment vs combination therapy. Pt wants to continue with Tamoxifen alone for now. Plan is proceed with Swallowing evaluation, GI consult-Dr. Nicole Olsen for dysphagia. Continue Tamoxifen 20mg bid. Reassess in [address] a/p. RTC 8 weeks with CBC/CMP. Medications: Prescriptions This Visit Medication Instructions Recorded Omeprazole Magnesium [Prilosec Otc] 20 mg PO DAILY 02/13/17 Primary Care Provider: Rudy Hameed Referring Provider: - Problem List (1) History of right breast cancer Status: Chronic (2) Osteopenia Status: Chronic (3) Weight loss Status: Acute (4) Bony sclerosis Status: Chronic (5) Peritoneal metastases Status: Chronic Code Visit Office Visits / Consults: 06471 OV L5 Est 09/18/18 1238 <Electronically signed by Brigido Kauffman MD> Date Brigido Kauffman MD Cosigner Signature: Date (if applicable) CC: EGGS INSPECTOR-C Raina Fish CREATININE FINGERSTICK Collected: 09/12/2018 Status: F Source: [place] 6:43 AM [facility] REPOSITORY TYPE CODE TESTS RESULT OUT OF RANGE REFERENCE UNITS LAB L9100.0210 0.55-1.02 mg/dL Normal CREATININE WB 0.8 LAB L9100.0220 >60 mL/min EGFR WB Normal > 60.0000 Performed By: #### L9100.0200 #### [facility] Laboratory Point of Care [address] [place] [address] BRAIN W/WO CONTRAST Observed: 09/12/2018 Status: F Source: [place] 6:13 AM [facility] REPOSITORY [facility] Imaging Services [address] [place] [address] Brain W/WO Contrast MR#: [id number] Acct: [id number] Name: ELIEZER SAMPSON Rep #: [id number] : 1945 F 73 From: Robyn Quiros PCP: Rudy Hameed DO Status: REG CLI Study: Brain W/WO Contrast Date of Exam: 09/12/18 Exam# [id number] Ordering Dr: Brigido Kauffman MD STUDY: MRI BRAIN WITH AND WITHOUT CONTRAST REASON FOR EXAM: Female, 73 years old. breast ca w/ mets, no neuro symptoms. TECHNIQUE: Standardized multiplanar fat and water weighted pulse sequences were obtained. 6 ml of Gadavist contrast material was administered intravenously for the contrast portion of the examination. COMPARISON: None. FINDINGS: Normal size of the ventricles and extra-axial spaces for the patient's age. There are a limited number of small white matter hyperintensities, distributed throughout the deep white matter tracts of the cerebral hemispheres, consistent with mild chronic white matter ischemic changes. Normal bilateral basal ganglia. Normal thalami. There is no extra-axial fluid accumulation. Normal flow voids within the major intracranial circulation suggesting patency by spin echo criteria. Normal venous enhancement. There is no enhancing intra-axial or extra-axial abnormality. Normal sella turcica, pituitary gland, infundibular stalk, optic chiasm and hypothalamus. Normal tectal plate and pineal gland. Normal midbrain, david and medulla. Normal cerebellum. Normal basal cisterns. Normal bilateral temporal bones. Normal bilateral internal auditory canals. No demonstrated orbital abnormality, within the constraints of a routine brain study. Normal visualized paranasal sinuses. Normal calvarium and skull base. Normal visualized soft tissue structures. Normal visualized upper cervical spine. MRI/Brain W/WO Contrast IMPRESSION: No acute intracranial abnormality or evidence of metastatic disease Electronically Signed: Robyn Quiros MD at 8:02 EST Tel , Service support , CC: Rudy Hameed DO; Brigido Kauffamn MD Plant Electrical Engineer: Signed ONC ECHOCARDIOGRAM Observed: 09/06/2018 Status: F Source: [place] COMPLETE 2:00 PM [facility] REPOSITORY [facility] Cardiovascular Services [address] [place] [address] ONC Echo Complete 09/06/18 0916 MR#: [id number] Acct: [id number] Name: ELIEZER SAMPSON Rep #: [id number] : 1945 73 From: Shashank Sr MD Attending Dr: Brigido Kauffman MD Status: REG CLI Ordering Dr: Brigido Kauffman MD Date: 09/06/18 Location: [facility] Sex: F C Admitted: Reason For Study: PRE CHEMO Procedure This was a 2D Doppler, Color Flow transthoracic echocardiogram. Myocardial strain analysis was performed in this exam to aid in the assessment of cardiac function. Exam performed in department. Left Ventricle Normal size and thickness. The estimated ejection fraction is 65 %. Stage 1 diastolic dysfunction. No regional wall motion abnormalities noted. Right Ventricle Mildly dilated right ventricle. A moderator band is seen in the right ventricle. Normal systolic function. Atria Normal left atrium. Normal right atrium. Normal atrial septum. Mitral Valve Mild diffuse mitral valve thickening. Severe mitral annular calcification extending into the posterior leaflet. Tricuspid Valve Normal tricuspid valve. Mild (1+) tricuspid valve insufficiency. Right ventricular systolic pressure estimated to be 37 mmHg. Aortic Valve Normal aortic valve. Trisinus/trileaflet aortic valve. Trivial aortic valve insufficiency. Pulmonic Valve Normal pulmonic valve. Great Vessels Normal aortic root. Mild atherosclerosis of the aortic arch. Normal inferior vena cava. Inferior vena cava collapse with respiration. Pericardium/Pleural No pericardial effusion. MMode/2D Measurements AND Calculations LVIDd: 4.0 cm IVSd: 0.84 cm Ao root diam: 3.3 cm LVIDs: 2.7 cm LVPWd: 0.72 cm RVDd: 3.2 cm FS: 31.7 % LAV(MOD-bp): 59.3 ml LVAd ap4: 20.5 cm2 SV(MOD-sp4): 35.0 ml LAV(MOD-bp) Indexed: 36.7 ml/m2 EDV(MOD-sp4): 55.2 ml LAV(MOD-sp2): 49.8 ml EDV(sp4-el): 57.8 ml LAV(MOD-sp4): 69.6 ml LVAs ap4: 11.0 cm2 ESV(MOD-sp4): 20.2 ml ESV(sp4-el): 20.1 ml EF(MOD-sp4): 63.4 % EF(sp4-el): 65.2 % SV(sp4-el): 37.7 ml LA A4 area: 20.4 cm2 LA dimension(2D): 3.5 cm RA A4 area: 13.8 cm2 Time Measurements MV dec time: 0.31 sec Doppler Measurements AND Calculations MV E max dalton: 91.8 cm/sec Lat Peak E' Dalton: 8.7 cm/sec Med Peak E' Dalton: 6.9 cm/sec MV A max dalton: 118.7 cm/sec E/E' lat: 10.6 E/E' med: 13.4 MV E/A: 0.77 MV P1/2t max dalton: 121.6 cm/sec Ao V2 max: 146.9 cm/sec LV V1 max: 126.4 cm/sec MV P1/2t: 99.8 msec Ao max P.6 mmHg LV V1 max P.4 mmHg MV dec slope: 356.9 cm/sec2 MVA(P1/2t): 2.2 cm2 PA V2 max: 103.8 cm/sec PI end-d dalton: 85.7 cm/sec TR max dalton: 276.3 cm/sec TR max P.6 mmHg MV P1/2t-pr_phl: 98.4 msec Interpretation Summary The estimated ejection fraction is 65 %. Stage 1 diastolic dysfunction. Mildly dilated right ventricle. Mild (1+) tricuspid valve insufficiency. Right ventricular systolic pressure estimated to be 37 mmHg. Trivial aortic valve insufficiency. Ordering Physician: Brigido Kauffman Referring Physician: RUDY HAMEED Performed By: Marie Hernandez RDCS 09/06/18 1400 Date Shashank Sr MD CC: Rudy Hameed DO; Brigido Kauffman MD Date Dictated: 09/06/18 0916 Date Transcribed: 09/06/18 1400 Plant Electrical Engineer: Signed ONCOLOGY VISIT REPORT Observed: 09/04/2018 Status: F Source: [place] 3:14 PM [facility] REPOSITORY [facility] Medical Oncology [address] [place] [address] OFFICE VISIT Date of Service: 09/04/18 1444 MR#: [id number] Acct: [id number] Name: ELIEZER SAMPSON Rep #: [id number] : 1945 From: Brigido Kauffman MD Age/Sex: 73/F Location: [facility] Status: Signed Subjective - Date of Service Date of Service:: 09/04/18 - Chief Complaint Follow up for biopsy report. - History of Present Illness 73y.o.woman was diagnosed with Stage IIIA (pT2, pN2, M0), ER/KY positive, HER2 amplified, grade 2 infiltrating lobular [...] Sunday. CXR a few months ago at [facility] showed a nodule. CT c/a/p on 06/25/2018 showed 4mm nodule LLL, Ascites, sclerotic focus T12, Gallstones. Bone scan done on 07/19/2018 showed DJD. PET/CT on 07/29/2018 showed hypermetabolic activities in hepatic capsule, retroperitoneal and pelvic floor. On 08/01/2018 CEA, CA15- 3, CA27.29, CA125 were all elevated. She was referred for Laparoscopic biopsy which was done by Dr. Colin Gutierrez and comes for follow up. - Past [...] Hemoptysis, Shortness of Breath, Wheezing Gastrointestinal:: Reports: Difficulty swallowing Genitourinary: Denies: Dysuria, Hematuria, 15, Flank pain Musculoskeletal:: Denies: Back pain, Myalgia, Arthralgia Skin: Denies: Rash, Skin Changes, Wounds Neurological:: Denies: Headache, Dizziness, Visual changes, Tinnitus, Hearing loss Psychiatric: Denies: Anxiety, Depression, Homicidal Ideations, Suicidal Ideations Vital Signs Height 5 ft 4 in Weight: 62.142 kg Weight in Pounds 137.0 lbs Pulse Ox 100 - Physical Exam General: Alert, Oriented x3, [...] fulfill quantitative criteria for viable neoplasm. (Rafaela et al, Journal of Clinical Oncology 16:2142, 1998). Electronic Signature Nick Tineo D.O. Electronically Signed: Nick Tineo DO at 22:33 EST Tel , Service support , Pathology Data: 08/29/2018 Pathology report from [facility] reviewed, Mesentery-metastatic carcinoma consistent with Lobular breast ca. Peritoneum, pelvis-metastatic carcinoma, consistent with lobular breast ca. Right fallopian tube-metastatic carcinoma, consistent with lobular breast ca. ER 10-20% positive KY 5% positive Her2 3+ positive . 08/29/2018 Ascitic fluid cytology reviewed, positive for malignant cells. Assessment and Plan Right breast cancer stage IIIA, lobular type, finished adjuvant hormonal therapy with Femara. Peritoneal metastasis from lobular breast carcinoma, ER/KY positive, Her2 3+ positive Malignant Ascites R/O metastatic disease. CEA/CA15-3, CA27.29, CA125 elevated. Discussed pathology report, treatment options including hormonal therapy, Her2 antibody therapy and chemotherapy. Difficulty swallowing, R/O [employer] disease. Plan is to obtain MRI brain, Swallowing evaluation, Echocardiogram. Start Tamoxifen 20mg bid. RTC 2 weeks. Medications: Prescriptions This Visit Medication Instructions Recorded Omeprazole Magnesium [Prilosec Otc] 20 mg PO DAILY 02/13/17 Primary Care Provider: Rudy Hameed Referring Provider: - Problem List (1) History of right breast cancer Status: Chronic (2) Osteopenia Status: Chronic (3) Weight loss Status: Acute (4) Lung nodule Status: Chronic (5) Bony sclerosis Status: Chronic (6) Ascites Status: Chronic Qualifiers: Ascites type: malignant Qualified Code(s): R18.0 - Malignant ascites Code Visit Office Visits / Consults: 70923 OV L5 Est 09/04/18 1514 <Electronically signed by Brigido Kauffman MD> Date Brigido Kauffman MD Cosigner Signature: Date (if applicable) CC: Rudy Hameed DO OP NOTE Observed: 08/29/2018 Status: F Source: [place] 1:55 PM SYSTEM REPOSITORY PATIENT: ELIEZER SAMPSON ADMISSION DATE: 08/29/2018 SURGERY DATE: 08/29/2018 DATE [...] of peritoneum by neoplastic process. Anesthesia: General. Certified Physician'S Assistant: Shanika Gomez D.O. Description of Findings: The [...] made in the umbilicus and using the [employer] system, the abdominal cavity was entered under [...] for final confirmation. cc: Brigido Kauffman M.D., [facility] Job ID: [id number] Andrea Gutierrez MD DOD:08/29/2018 01:55 P /ann DOT:08/29/2018 03:33 P Job Number: [id number] Document Number: [id number] cc: Andrea Gutierrez MD [address] Count includes the [facility] [address] Observed: 08/29/2018 Status: F Source: [facility] SURGICAL PATHOLOGY 12:59 PM SYSTEM REPOSITORY [id number] [facility] SA[facility] DEPARTMENT OF [facility] PATHOLOGY AND LABORATORY MEDICINE [address] [place] [address] FINAL SURGICAL PATHOLOGY REPORT NAME: ELIEZER SAMPSON : 1945 73 Y F BILLING NO.: [id number] [address] PROCEDURE 08/29/2018 DATE: SURGEON: ANDREA [...] approximately 10-20% of tumor cell nuclei, and KY is positive in approximately 5% of tumor cell nuclei. HER2 shows positive staining Score 3+). Note is made of the patient's previous invasive lobular breast carcinoma from 2008 (outside hospital, records in [facility]). CRH/CRH <Sign Out Dr. Vaca> KRYSTAL [...] submitted in three cassettes. (bits ns, 3) JCK/BETO Disclaimer: The following statement applies to all immunohistochemistry, in situ hybridization, molecular studies, and immunofluorescence testing. The use of one or more reagents in the above tests is regulated as an analyte specific reagent (ASR). These tests were developed and their performance characteristics determined by the clinical laboratories of [facility]. They have not [...] negativity on decalcified specimens. Professional Performing Location: [facility] [address] [place] [address]. DEPARTMENT OF PATHOLOGY AND LABORATORY MEDICINE [place], [place] [address] HEMOGLOBIN AND Collected: 08/29/2018 Status: F Source: [facility] HEMATOCRIT 12:38 PM SYSTEM REPOSITORY TYPE CODE TESTS RESULT OUT OF RANGE REFERENCE UNITS LAB HGB 11.7-16.0 g/dL Normal Hemoglobin 12.5 LAB HCT 35.0-47.0 % Normal Hematocrit 37.0 Performed By: #### HGHCT, BMP3 #### [facility] [address] [address] BASIC METABOLIC PANEL Collected: 08/29/2018 Status: F Source: [facility] 12:38 PM SYSTEM REPOSITORY TYPE CODE TESTS [...] mg/dL Normal Calcium 9.6 Performed By: #### HGHCT, BMP3 #### [facility] [address] [address] Observed: 08/29/2018 Status: F Source: [facility] MEDICAL CYTOLOGY 12:00 AM SYSTEM REPOSITORY [facility] [id number] DEPARTMENT OF PATHOLOGY AND [facility] LABORATORY MEDICINE [address] [facility] [place] [address] FINAL MEDICAL CYTOLOGY REPORT NAME: ELIEZER SAMPSON : 1945 73 Y F BILLING NO.: [id number] LOCATION: [facility] PACU OUTPT 1PAC PROCEDURE 08/29/2018 57 DATE: PHYSICIAN: ANDREA GUTIERREZ MD RECEIVED DATE: 08/30/2018 ATTENDING: ANDREA GTUIERREZ MD REPORT DATE: 09/02/2018 COPIES TO: CLINICAL DATA: DIAGNOSIS POSITIVE FOR MALIGNANT CELLS. CELLULAR FINDINGS ARE CONSISTENT WITH CARCINOMA. SEE COMMENT. COMMENT: The cells present in this specimen are morphologically similar to the metastatic carcinoma cells present in the patient's concurrent peritoneal biopsies and right fallopian tube ([id number]). This is consistent with metastatic lobular breast carcinoma. Please see surgical case for ER, KY, and HER2 ancillary studies results. Comment: ADDITIONAL SURGICAL CASES EXIST FOR THIS SAME DATE OF SERVICE SPECIMEN: ASCITES FLUID PROCEDURE(S): FLUID COLLECTION GROSS DESCRIPTION: 100 ml, yellow fluid, w/o cytolyt Materials Prepared & Examined: Cell Blocks . . . . . . . . . . . . 1 Monolayers . . . . . . . . . . . . 1 [facility] <Sign Out Dr. Vaca> Screened by KRYSTAL NAVARRETE M.D. The following statement applies to all immunohistochemistry, in situ hybridization, molecular studies, and immunofluorescence testing. The use of one or more reagents in the above tests is regulated as an analyte specific reagent (ASR). These tests were developed and their performance characteristics determined by the clinical laboratories of [facility]. They have not been cleared by the [...] negativity on decalcified specimens. Case reviewed at [facility] [address] [place] [address]. DEPARTMENT OF PATHOLOGY AND LABORATORY MEDICINE [place], [place] [address] ONCOLOGY VISIT REPORT Observed: 08/22/2018 Status: F Source: [place] 2:13 PM [facility] REPOSITORY [facility] Medical [place] [address] OFFICE VISIT Date of Service: 08/21/18 1603 MR#: [id number] Acct: [id number] Name: ELIEZER SAMPSON Wagner Rep #: [id number] : 1945 From: Brigido Kauffman MD Age/Sex: 73/F Location: OMD Status: Signed Subjective - Date of Service Date of Service:: 08/21/18 - Chief Complaint Follow up-breast cancer and PET/CT results. - History of Present Illness 73y.o.woman was diagnosed with Stage IIIA (pT2, pN2, M0), ER/KY positive, HER2 amplified, grade 2 infiltrating lobular [...] Sunday. CXR a few months ago at [facility] showed a nodule. CT c/a/p [...] nodule-stable 4mm. Discussed evaluation and biopsy by [employer] [employer]. Pt agrees. Plan is to obtain [employer] [employer] consult. RTC 2 weeks. Medications: Prescriptions [...] ascites Code Visit Office Visits / Consults: 81301 OV L4 Est 08/22/18 1413 <Electronically signed by Brigido Kauffman MD> Date Brigido Kauffman MD Cosigner Signature: Date (if applicable) CC: Andrea Gutierrez ABDOMEN LIMITED Observed: 08/16/2018 Status: F Source: [place] 8:43 AM [facility] REPOSITORY [facility] Imaging Services [address] [place] [address] Abdomen Limited MR#: [id number] Acct: [id number] Name: ELIEZER SAMPSON Rep #: [id number] : 1945 F 73 From: Atilio Orr MD PCP: Rudy Hameed DO Status: REG CLI Study: Abdomen Limited Date of Exam: 08/16/18 Exam# [id number] Ordering Dr: Brigido Kauffman MD STUDY: ABDOMINAL [...] Atilio Orr MD at 8:18 EST Tel [phone], Service support , CC: Rudy Hameed DO; Brigido Kauffman MD Plant Electrical Engineer: Signed CBC W/DIFF, AUTOMATED Collected: 08/15/2018 Status: F Source: [place] 1:07 PM [facility] REPOSITORY Order Comment: Reason for Laboratory Test [...] Lymph 0.73 Performed By: #### L100.0100 #### [facility] [address] [facility] [place], [place], [id number] PROTHROMBIN TIME W/INR Collected: 08/15/2018 Status: F Source: [place] 1:07 PM [facility] REPOSITORY Order Comment: Reason for Laboratory Test . TYPE CODE TESTS RESULT OUT OF RANGE REFERENCE UNITS LAB L300.4150 11.7-14.9 SECONDS Normal PROTIME 13.9 LAB L300.4200 Normal INR 1.1 Performed By: #### L300.3900, L300.4310 #### [facility] [address] [place], [place], [id number] PARTIAL THROMBOPLAST Collected: 08/15/2018 Status: F Source: [place] TIME 1:07 PM [facility] REPOSITORY Order Comment: Reason for Laboratory Test . TYPE CODE TESTS RESULT OUT OF RANGE REFERENCE UNITS LAB L300.4310 24.1-36.2 Seconds Normal PTT 30.5 Performed By: #### L300.3900, L300.4310 #### [facility] [address] [place], [place], [address] CARCINOEMBRYONIC ANTIGEN Collected: 08/01/2018 Status: F Source: [place] 11:59 AM [facility] REPOSITORY Order Comment: Reason for Laboratory Test [...] 08/01/2018 Status: F Source: [place] 11:59 AM [facility] REPOSITORY Order Comment: Reason for Laboratory Test . TYPE CODE TESTS RESULT OUT OF RANGE REFERENCE UNITS LAB L3100.5000 0.0-38.1 U/mL High CA125 60.6 2303 Result Comment: Britton ECLIA methodology Performed By: #### L3100.2300, L3100.5000, L3100.5040 #### [facility] (refer to report for specific site) refer to report for address and phone number CA 27.29 Collected: 08/01/2018 Status: F Source: [place] 11:59 AM [facility] REPOSITORY Order Comment: Reason for Laboratory Test . TYPE CODE TESTS RESULT OUT OF REFERENCE UNITS RANGE LAB L3100.5040 0.0-38.6 U/mL High CA27.29 342.5 [id number] Result Comment: Anne Roomixeraur/ACS methodology Performed at: [facility] [address] [id number] Archivist: Eriberto Meyers PhD, Phone: [phone] Performed By: #### L3100.2300, L3100.5000, L3100.5040 #### [facility] (refer to report for specific site) refer to report for address and phone number CA 15-3 Collected: 08/01/2018 Status: F Source: [place] 11:59 AM [facility] REPOSITORY Order Comment: Reason for Laboratory Test . TYPE CODE TESTS RESULT OUT OF REFERENCE UNITS RANGE LAB L3100.5030 0.0-25.0 U/mL High CA 15-3 160.2 738315 Result Comment: Britton ECLIA methodology Performed at: [facility] [address] [id number] Archivist: Eriberto Meyers PhD, Phone: [phone] Performed By: #### L3100.5030 #### [facility] (refer to report for specific site) refer to report for address and phone number ONCOLOGY VISIT REPORT Observed: 08/01/2018 Status: F Source: [place] 11:44 AM [facility] REPOSITORY [facility] [place] [address] [place] [address] OFFICE VISIT Date of Service: 08/01/18 1132 MR#: [id number] Acct: [id number] Name: ELIEZER SAMPSON Rep #: [id number] : 1945 From: Brigido Kauffman MD Age/Sex: 73/F Location: [facility] Status: Signed Subjective - Date of Service Date of Service:: 08/01/18 - Chief Complaint Follow up-breast cancer and PET/CT results. - History of Present Illness 73y.o.woman was diagnosed with Stage IIIA (pT2, pN2, M0), ER/KY positive, HER2 amplified, grade 2 infiltrating lobular [...] Sunday. CXR a few months ago at [facility] showed a nodule. CT c/a/p [...] ascites Code Visit Office Visits / Consults: 24408 OV L5 Est 08/01/18 1144 <Electronically signed by Brigido Kauffman MD> Date Brigido Kauffman MD Cosigner Signature: Date (if applicable) CC: Rudy Hameed DO PET/CT TUMOR BASE Observed: 07/29/2018 Status: F Source: [place] -THIGH SUBS 7:38 AM [facility] REPOSITORY [facility] Imaging Services [address] [place] [address] PET/CT Tumor Base -Thigh Subs MR#: [id number] Acct: [id number] Name: ELIEZER SAMPSON Rep #: [id number] : 1945 F 73 From: Nick Tineo DO PCP: Rudy Hameed DO Status: REG RCR Study: PET/CT Tumor Base -Thigh Subs Date of Exam: 07/29/18 Exam# [id number] Ordering Dr: Brigido Kauffman MD EXAMINATION: FDG [...] fulfill quantitative criteria for viable neoplasm. (Rafaela et al, Journal of Clinical Oncology 16:2142, 1998). Electronic Signature Nick Tineo D.O. Electronically Signed: Nick Tineo DO at 22:33 EST Tel , Service support , CC: Rudy Hameed DO; Brigido Kauffman MD Plant Electrical Engineer: Signed ONCOLOGY VISIT REPORT Observed: 07/25/2018 Status: F Source: [place] 4:05 PM [facility] REPOSITORY [facility] [address] [place] [address] OFFICE VISIT Date of Service: 07/25/18 1403 MR#: [id number] Acct: [id number] Name: ELIEZER SAMPSON Rep #: [id number] : 1945 From: Brigido Kauffman MD Age/Sex: 73/F Location: OMD Status: Signed Subjective - Date of Service Date of Service:: 07/25/18 - Chief Complaint Follow up-breast cancer - History of Present Illness 73y.o.woman was diagnosed with Stage IIIA (pT2, pN2, M0), ER/KY positive, HER2 amplified, grade 2 infiltrating lobular [...] Sunday. CXR a few months ago at [facility] showed a nodule. CT c/a/p [...] Signed: Nick Tineo DO at 23:34 EDT Assessment and [...] Brigido Kauffman MD> Date Brigido [facility]au[facility] Signature: Date (if applicable) CC: BONE SCAN WHOLE Observed: 07/19/2018 Status: F Source: [place] BODY 10:10 AM [facility] REPOSITORY [facility] Imaging Services [address] [place] [address] Bone Scan Whole Body MR#: [id number] Acct: [id number] Name: ELIEZER SAMPSON Rep #: [id number] : 1945 F 73 From: Nick Tineo DO PCP: Rudy Hameed DO Status: REG CLI Study: Bone Scan Whole Body Date of Exam: 07/19/18 Exam# [id number] Ordering Dr: Brigido Kauffman MD CLINICAL: 73-year-old [...] CC: Rudy Hameed DO; Brigido Kauffman MD Plant Electrical Engineer: Signed ONCOLOGY VISIT REPORT Observed: 07/15/2018 Status: F Source: [place] 12:54 PM [facility] REPOSITORY [facility] [address] [place] [address]. [place] [address] OFFICE VISIT Date of Service: 07/15/18 1100 MR#: [id number] Acct: [id number] Name: ELIEZER SAMPSON Rep #: [id number] : 1945 From: Brigido Kauffman MD Age/Sex: 73/F Location: OMD Status: Signed Subjective - Date of Service Date of Service:: 07/15/18 - Chief Complaint Follow up-breast cancer - History of Present Illness 73y.o.woman was diagnosed with Stage IIIA (pT2, pN2, M0), ER/KY positive, HER2 amplified, grade 2 infiltrating lobular [...] Sunday. CXR a few months ago at [facility] showed a nodule. She had [...] Chronic Code Visit Office Visits / Consults: 25511 OV L3 Est 07/15/18 1254 <Electronically signed by Brigido Kauffman MD> Date Brigido Kauffman MD Cosigner Signature: Date (if applicable) CC: XR CHEST 2 VIEWS Observed: 07/02/2018 Status: F Source: [facility] 1:32 PM [facility] REPOSITORY ORIGINAL XR CHEST 2 [...] Status: F Source: [place] CONTRAST 9:58 AM [facility] REPOSITORY [facility] Imaging Services [address] [place] [address] Abdomen/Pelvis WITH Contrast MR#: [id number] Acct: [id number] Name: ELIEZER SAMPSON Rep #: [id number] : 1945 F 73 From: Nick Deleon MD PCP: [place] DO,Rudy Status: REG CLI Study: Abdomen/Pelvis WITH Contrast Date of Exam: 06/25/18 Exam# [id number] Ordering Dr: Brigido Kauffman MD STUDY: CT [...] CC: Rudy Hameed DO; Brigido Kauffman MD Plant Electrical Engineer: Signed CHEST WITH CONTRAST Observed: 06/25/2018 Status: F Source: [place] 9:58 AM [facility] REPOSITORY [facility] Imaging Services [address] [place] [address] Chest WITH Contrast MR#: [id number] Acct: [id number] Name: ELIEZER SAMPSON Rep #: [id number] : 1945 F 73 From: Nick Deleon MD PCP: Rudy Hameed DO Status: REG CLI Study: Chest WITH Contrast Date of Exam: 06/25/18 Exam# [id number] Ordering Dr: Brigido Kauffman MD STUDY: CT [...] CC: Rudy Hameed DO; Brigido Kauffman MD Plant Electrical Engineer: Signed ONCOLOGY VISIT REPORT Observed: 06/17/2018 Status: F Source: [place] 1:41 PM [facility] REPOSITORY [facility] [address] [place] [address] OFFICE VISIT Date of Service: 06/17/18 1331 MR#: [id number] Acct: [id number] Name: ELIEZER SAMPSON Rep #: [id number] : 1945 From: Brigido Kauffman MD Age/Sex: 73/F Location: [facility]MD Status: Signed Subjective - Date of Service Date of Service:: 06/17/18 - Chief Complaint Follow up-breast cancer - History of Present Illness 73y.o.woman was diagnosed with Stage IIIA (pT2, pN2, M0), ER/KY positive, HER2 amplified, grade 2 infiltrating lobular [...] Sunday. CXR a few months ago at [facility] showed a nodule. - Past [...] Acute Code Visit Office Visits / Consults: 66927 OV L4 Est 06/17/18 1341 <Electronically signed by Brigido Kauffman MD> Date Brigido Kauffman MD Cosigner Signature: Date (if applicable) CC: CBC W/DIFF, AUTOMATED Collected: 06/17/2018 Status: F Source: [place] 12:57 PM [facility] REPOSITORY Order Comment: Reason for Laboratory Test [...] 0.79 Performed By: #### L100.0100, L500.4050 #### [facility] [address] [place], [address] COMPREHENSIVE METABOLIC Collected: 06/17/2018 Status: F Source: [facility] 12:57 PM [facility] REPOSITORY Order Comment: Reason for Laboratory Test [...] 7 Performed By: #### L100.0100, L500.4050 #### [facility] [address] [facility] [place], [address] XR CHEST 2 VIEWS Observed: 05/29/2018 Status: F Source: [place] [facility] 12:53 PM [facility] REPOSITORY ORIGINAL XR CHEST [...] PM TROPI Collected: 04/27/2018 Status: F Source: [facility] 10:31 AM [facility] REPOSITORY TYPE CODE TESTS RESULT OUT OF [...] ECG changes may help assess possibility of NV. *Other non-acute coronary syndrome conditions such as CHF, myocarditis, pulmonary emboli, sepsis and cardiac surgery could result in myocardial damage and increased troponin levels. Performed By: #### TROPI #### [place] [address] NM MYOCARDIAL SPECT Observed: 04/27/2018 Status: F Source: [place] STRESS/REST 8:15 AM [facility] REPOSITORY ORIGINAL NM MYOCARDIAL SPECT STRESS/REST CLINICAL [...] PM TROPI Collected: 04/27/2018 Status: F Source: [facility] 5:13 AM [facility] REPOSITORY TYPE CODE TESTS RESULT OUT OF [...] ECG changes may help assess possibility of NV. *Other non-acute coronary syndrome conditions such as CHF, myocarditis, pulmonary emboli, sepsis and cardiac surgery could result in myocardial damage and increased troponin levels. Performed By: #### TROPI #### [place] [address] XR CHEST 2 VIEWS Observed: 04/27/2018 Status: F Source: [facility] 2:58 AM [facility] REPOSITORY ORIGINAL XR CHEST 2 VIEWS, 04/27/2018 [...] AM CBC Collected: 04/27/2018 Status: F Source: [facility] 2:06 AM [facility] REPOSITORY TYPE CODE TESTS RESULT OUT OF [...] 7.4-10.4 fL MPV 10.2 Performed By: #### CBC, ADIFF, ANEU #### [place] [id number] #### TROP, BMP, GFR #### [address] [address] .AUTO DIFF Collected: 04/27/2018 Status: F Source: [facility] 2:06 AM [facility] REPOSITORY TYPE CODE TESTS RESULT OUT OF [...] ) Basophil, 0.00 Absolute Performed By: #### CBC, ADIFF, ANEU #### [address] [address] #### TROP, BMP, GFR #### [address] [address] .NEUABS Collected: 04/27/2018 Status: F Source: [facility] 2:06 AM [facility] REPOSITORY TYPE CODE TESTS RESULT OUT OF REFERENCE UNITS RANGE LAB ANEU(LOINC) 2.85-6.16 10 3/mcL Low Neutrophil, 2.40 Absolute Performed By: #### CBC ADIFF, ANEU #### [address] [address] #### TROP, BMP, GFR #### [place] [address] TROP Collected: 04/27/2018 Status: F Source: [facility] 2:06 AM [facility] REPOSITORY TYPE CODE TESTS RESULT OUT OF REFERENCE UNITS RANGE LAB TROP(LOINC) 0.000-0.040 ng/mL Troponin <0.020 Result Comment: Troponin I reference range: 0.00-0.040 ng/mL Negative and non-diagnostic. >0.040 ng/mL Consistent with cardiac damage, increased clinical risk and possibility of myocardial infarction. Serial measurements, a rise & fall in test results, clinical history, appropriate symptoms and/or ECG changes may help assess possibility of NV. *Other non-acute coronary syndrome conditions such as CHF, myocarditis, pulmonary emboli, sepsis and cardiac surgery could result in myocardial damage and increased troponin levels. Performed By: #### TIBURCIO GONZALEZ, ANEU #### [address] [address] #### TROP, BMP, GFR #### [place] [address] BMP Collected: 04/27/2018 Status: F Source: [facility] 2:06 AM [facility] REPOSITORY TYPE CODE TESTS RESULT OUT OF [...] mg/dL Calcium Lvl 9.6 Performed By: #### CARLOS, TIBURCIO, ANEU #### [place] [address] [place], [place] [address] #### TROP, BMP, GFR #### [address] [address] .GFR Collected: 04/27/2018 Status: F Source: [facility] 2:06 AM [facility] REPOSITORY TYPE CODE TESTS RESULT OUT OF REFERENCE UNITS RANGE LAB GFRAA(LOINC ml/min/1.73 ) sqm GFR [address] Result Comment: GFR Population mean for , [...] 15 mL/min/1.73 square meters Performed By: #### CBC, ADIFF, ANEU #### [place] [address] [address] #### TROP, BMP, GFR #### [place] [address] [place] [address] ONCOLOGY VISIT REPORT Observed: 12/11/2017 Status: F Source: [place] 2:19 PM [facility] REPOSITORY [facility] [address] [place] [address] OFFICE VISIT Date of Service: 12/10/17 1450 MR#: [id number] Acct: [id number] Name: ELIEZER SAMPSON Rep #: [id number] : 1945 From: Brigido Kauffman MD Age/Sex: 72/F Location: OMD Status: Signed Subjective - Date of Service Date of Service:: 12/10/17 - Chief Complaint Follow up-breast cancer - History of Present Illness 72y.o.woman was diagnosed with Stage IIIA (pT2, pN2, M0), ER/KY positive, HER2 amplified, grade 2 infiltrating lobular [...] Diagnostic Data: 12/03/2017 bone density done at [facility] reviewed, shows osteopenia left femoral neck. mammogram left breast done at [facility] reviewed, showed no evidence of [...] PO DAILY 12/13/16 Primary Care Provider: Rudy Plymouth Referring Provider: - Problem List (1) History of right breast cancer Status: Chronic (2) Osteopenia Status: Chronic (3) Panniculitis of other sites Status: Chronic Code Visit Office Visits / Consults: 62958 OV L4 Est 12/11/17 1419 <Electronically signed by Brigido Kauffman MD> Date Brigido Kauffman MD Cosigner Signature: Date (if applicable) CC: BD BONE DENSITY DEXA Observed: 12/03/2017 Status: F Source: [facility] AXIAL SKELETON 11:00 AM [facility] REPOSITORY ORIGINAL [...] MAMMOGRAM SCREENING Observed: 12/03/2017 Status: F Source: [facility] LEFT W/SUMAN 10:30 AM [facility] REPOSITORY ORIGINAL FROM: [place] [address] PROCEDURE FOR: ELIEZER Colin SAMPSON [address] [place] [address] Home: PID#: [id number] Exam#: [id number] : 1945 Age: 72 TO: PAULA SHELTON [facility] [address] [place] [address] #[id number] LEFT DIGITAL SCREENING MAMMOGRAM 3D/2D WITH CAD WITH MEDIOLATERAL OBLIQUE CRANIOCAUDAL: 12/03/2017 Comparison is made to exams dated: 12/01/2016 mammogram and 11/30/2015 mammogram - [facility]. There are scattered fibroglandular elements in the [...] A 1 year screening mammogram is recommended. RAFI ERICKSON MD cc/penoliverio:12/03/2017 16:55:50 copy to: RUDY HAMEED DO, ph: [phone], fax: [phone] Cosmetics Demonstrator: SANFORD LOVE (R)(M), [facility] letter sent: Normal BI-RADS 1&2 Mammogram BI-RADS: 2 Benign VL ARTERIAL BILATERAL Observed: 11/09/2017 Status: F Source: [place] [facility] LOWER EXT PVR 8:42 AM [facility] REPOSITORY [...] 10:49:43 AM Sign Date: 11/09/2017 10:54:06 AM ALLERGIES ALLERGIES DATE TYPE / CODE NAME / CODE REACTION SEVERITY SOURCE 09/18/2018 Drug No Known Unknown [facility] Allergy/4160 Allergies/F00 Hospital 08556(SNOMED 6682517(RXNOR Repository CT) M) ENCOUNTERS ENCOUNTERS ADMIT/DISCHARGE ACCOUNT NUMBER ADMITTING ENCOUNTER LOCATION SOURCE CLASS 10/07/2018 [id number] Ambulatory [facility] ding:RAD Repository 09/18/2018 [id number] Ambulatory BMSBuilding: [place] BMS.CF.[facility] Repository 09/18/2018 [id number] Ambulatory [facility] ding:OMD Repository 09/12/2018 [id number] Ambulatory [facility] ding:MRI Repository 09/06/2018 [id number] Ambulatory [facility] ding:CVS Repository 09/06/2018 [id number] Ambulatory BMSBuilding: [place] [facility] Repository 09/04/2018 [id number] Ambulatory BMSBuilding: [place] [facility] Repository 08/29/2018 [id number] Ambulatory BuildinA [facility] [id number]: System [id number]: Repository [id number] 08/28/2018 [id number] Ambulatory [facility] System Repository 08/21/2018 [id number] Ambulatory BMSBuilding: [place] BMS.CF[facility] Repository 08/16/2018 [id number] Ambulatory [facility] ding:US Repository 08/01/2018 [id number] Ambulatory BMSBuilding: [place] BMS.CF[facility] Repository 07/25/2018 [id number] Ambulatory BMSBuilding: [place] BMS.CF[facility] Repository 07/19/2018 [id number] Ambulatory [facility] ding:[place] Repository 07/15/2018 [id number] Ambulatory BMSBuilding: [place] BMS.CF[facility] Repository 07/02/2018/07/02/20 [id number] Ambulatory [address] ding:[facility] [place] Repository 06/25/2018 [id number] Ambulatory [facility] ding:CT Repository 06/17/2018 [id number] Ambulatory BMSBuilding: [place] BMS.CF[facility] Repository 05/29/2018/05/29/20 [id number] Ambulatory OTILIA Benson [address] [place] [address] ding:RAD [facility] [place] Repository 04/27/2018/04/27/20 [id number] SADE POP, Ambulatory ABuilding:ALIREZA Benson [facility]: [place] [address]Bed: A Foundation Repository 04/27/2018/04/27/20 [id number] Emergency BBuilding:CHIVO Benson [address] [place] [address] Repository 12/10/2017 [id number] Ambulatory BMSBuilding: [place] B[facility].CF[facility] Repository 12/03/2017/12/04/19 [id number] Ambulatory OTILIA Foster[address] ding:RAD [facility] [place] Repository 11/09/2017/11/09/19 [id number] Ambulatory [address] ding:[facility] [place] Repository PAYERS PAYERS ENCOUNTER GUARANTOR PAYER SUBSCRIBER SOURCE 10/07/2018 ELIEZER Edward Primary ELIEZER Bryantoster [id number] Insurance:MEDICARE FITZWATERDOB: Community [place] PART A [facility] [id number] Number: Repository [id number]: 330 [id number] [phone] () Date:2018-10-01 10/07/2018 Secondary ELIEZER Edward [place] Insurance:ANTHEMPolic FITZWATERDOB: Community y Number: [id number] Hospital [id number] Repository Date:1769-09-26UX [address] [place] [address] 90508PG: 10/07/2018 Tertiary NOT GIVENUNK [place] Insurance:SELF PAY [facility] Number: Effective Repository Date:2018-10-01 09/18/2018 CHRISTELLE Hernandez Primary ELIEZER Bryantoster [id number] Insurance:MEDICARE FITZWATERDOB: Community [place] PART A [facility] [id number], [place] Number: Repository 09862Dkr: 330 [id number] [phone] () Date:2016-12-06 09/18/2018 Secondary ELIEZER Edward [place] Insurance:ANTHEMPolic FITZWATERDOB: Community y Number: [id number] Hospital [id number] Repository Date:3938-94-60JB [address]DMZLBY[address], [place] [address]BU: 09/18/2018 Tertiary NOT GIVENUNK [place] Insurance:SELF PAY [facility] Number: Effective Repository Date:2018-09-18 09/18/2018 CHRISTELLE E Primary ELIEZER Edward [place] [id number] Insurance:MEDICARE FITZWATERDOB: Community [place] PART A [facility] [id number], [place] Number: Repository [id number]: 330 [id number] [phone] (HP) Date:2016-12-06 09/18/2018 Secondary ELIEZER Edward [place] Insurance:ANTHEMPolic FITZWATERDOB: Community y Number: [id number] Hospital [id number] Repository Date:4774-96-64NA [address]PBZ[address], [place] [address]BH: 09/18/2018 Tertiary NOT GIVENUNK [place] Insurance:SELF PAY [facility] Number: Effective Repository Date:2016-12-06 09/12/2018 ELIEZER S Primary ELIEZER Edward [place] [id number] Insurance:MEDICARE FITZWATERDOB: Community [place] PART A [facility] [id number], [place] Number: Repository [address]Yft: 330 [id number] [phone] () Date:2018-09-04 09/12/2018 Secondary ELIEZER Edward [place] Insurance:ANTHEMPolic FITZWATERDOB: Community y Number: [id number] Hospital [id number] Repository Date:4184-76-86ZS [address] [place] [address] 22786UQ: 09/12/2018 Tertiary NOT GIVENUNK [place] Insurance:SELF PAY [facility] Number: Effective Repository Date:2018-09-04 09/06/2018 ELIEZER S Primary ELIEZER Edward [place] [id number] Insurance:MEDICARE FITZWATERDOB: Community [place] PART A [facility] [id number], [place] Number: Repository [address]Jhn: 330 [id number] [phone] () Date:2018-09-04 09/06/2018 Secondary ELIEZER Edward [place] Insurance:ANTHEMPolic FITZWATERDOB: Community y Number: [id number] Hospital [id number] Repository Date:1412-66-35BH [address]XCOZVQB, [place] [address]KB: 09/06/2018 Tertiary NOT GIVENUNK [place] Insurance:SELF PAY [facility] Number: Effective Repository Date:2018-09-04 09/06/2018 ELIEZER Edward Primary ELIEZER Edward [place] [id number] Insurance:MEDICARE FITZWATERDOB: Community [place] PART A [facility] [id number][place] Number: Repository [address]Pef: 330 [id number] [phone] () Date:2018-09-04 09/06/2018 Secondary ELIEZER Edward [place] Insurance:ANTHEMPolic FITZWATERDOB: Community y Number: [id number] Hospital [id number] Repository Date:7862-56-37QZ [address] [place] [address]35[address]CI: 09/06/2018 Tertiary NOT GIVENUNK [place] Insurance:SELF PAY [facility] Number: Effective Repository Date:2018-09-06 09/04/2018 CHRISTELLE E Primary ELIEZER Edward [place] [id number] Insurance:MEDICARE FITZWATERDOB: Critical access hospital PART A [facility] [id number], [place] Number: Repository [address]Bzw: 330 [id number] [phone] () Date:2016-12-06 09/04/2018 Secondary ELIEZER Edward [place] Insurance:ANTHEMPolic FITZWATERDOB: Community y Number: [id number] Hospital [id number] Repository Date:0656-66-05OX [address] [place] [address] 276[address]LN: 09/04/2018 Tertiary NOT GIVENUNK [place] Insurance:SELF PAY [facility] Number: Effective Repository Date:2018-09-04 08/29/2018 Eliezer Edward Primary Eliezer Edward [facility] FitzwaterDOB: Insurance:MedicarePol FitzwaterDOB: System [id number] icy Number: Effective [id number] Hospital Date: [place], [place] [address]Yqa: () 08/29/2018 Secondary Eliezer [facility] Insurance:MedicarePol FitzwaterDOB: System icy Number: Effective [id number] Repository Date: 08/29/2018 Tertiary Eliezer [facility] Insurance:[place] Blue Fitz[place]DOB: System Cross Blue [id number] Repository ShieldPolicy Number: Effective Date: 08/28/2018 Eliezer S Primary Eliezer [facility] FitzwaterDOB: Insurance:MedicarePol FitzwaterDOB: System [id number] icy Number: Effective [id number] Repository [place] Date: [place], [place] [address]Mql: () 08/28/2018 Secondary Eliezer [facility] Insurance:MedicarePol FitzwaterDOB: System icy Number: Effective [id number] Repository Date: 08/28/2018 Tertiary Eliezer [facility] Insurance:[place] Blue Fitz[place]DOB: System Cross Blue [id number] [facility]ository [facility] Number: Effective Date: 08/21/2018 CHRISTELLE Hernandez Primary ELIEZER Edward [place] [id number] Insurance:MEDICARE FITZWATERDOB: Community [place] PART A [facility] [id number], [place] Number: Repository [address]Hij: 330 [id number] [phone] (HP) Date:2016-12-06 08/21/2018 Secondary ELIEZER Edward [place] Insurance:ANTHEMPolic FITZWATERDOB: Community y Number: [id number] Hospital [id number] Repository Date:4307-36-34[address] [address]CO: 08/21/2018 Tertiary NOT GIVENUNK [place] Insurance:SELF PAY [facility]: Effective Repository Date:2018-08-21 08/16/2018 CHRISTELLE E Primary ELIEZER Edward [place] [id number] Insurance:MEDICARE FITZWATERDOB: Community [place] PART A [facility] [id number], [place] Number: Repository [address]Lux: 330 [id number] [phone] (HP) Date:2018-08-01 08/16/2018 Secondary ELIEZER S [place] Insurance:ANTHEMPolic FITZWATERDOB: Community y Number: [id number] Hospital [id number] Repository Date:9578-71-93XF [address] [place] [address] 339[address]RT: 08/16/2018 Tertiary NOT GIVENUNK [place] Insurance:SELF PAY [facility] Number: Effective Repository Date:2018-08-01 08/01/2018 CHRISTELLE E Primary ELIEZER S [place] [id number] Insurance:MEDICARE FITZWATERDOB: Community [place] PART A [facility] [id number], [place] Number: Repository [id number]: (039) [id number] [phone] () Date:2016-12-06 08/01/2018 Secondary ELIEZER S [place] Insurance:ANTHEMPolic FITZWATERDOB: Community y Number: [id number] Hospital [id number] Repository Date:8114-66-56FM [address]REASQSK, [place] [address]GP: 08/01/2018 Tertiary NOT GIVENUNK [place] Insurance:SELF PAY [facility] Number: Effective Repository Date:2018-08-01 07/25/2018 CHRISTELLE E Primary ELIEZER S [place] [id number] Insurance:MEDICARE FITZWATERDOB: Community [place] PART A [facility] [id number], [place] Number: Repository [address]Vum: (151) [id number] [phone] () Date:2016-12-06 07/25/2018 Secondary ELIEZER S [place] Insurance:ANTHEMPolic FITZWATERDOB: Community y Number: [id number] Hospital [id number] Repository Date:4630-53-51KU [address]HFMNAQN, [place] [address]XF: 07/25/2018 Tertiary NOT GIVENUNK [place] Insurance:SELF PAY [facility] Number: Effective Repository Date:2018-07-25 07/19/2018 CHRISTELLE Hernandez Primary ELIEZER Edward [place] [id number] Insurance:MEDICARE FITZWATERDOB: Community [place] PART A [facility] [id number], [place] Number: Repository [address]Mef: 330 [id number] [phone] () Date:2018-07-15 07/19/2018 Secondary ELIEZER Edward [place] Insurance:ANTHEMPolic FITZWATERDOB: Community y Number: [id number] Hospital [id number] Repository Date:7859-34-84ZJ [address] [place] [address] 355[address]MA: 07/19/2018 Tertiary NOT GIVENUNK [place] Insurance:SELF PAY [facility] Number: Effective Repository Date:2018-07-15 07/15/2018 CHRISTELLE Hernandez Primary ELIEZER Edward [place] [id number] Insurance:MEDICARE FITZWATERDOB: Critical access hospital PART A [facility] [id number], [place] Number: Repository [address]Qfa: 330 [id number] [phone] () Date:2016-12-06 07/15/2018 Secondary ELIEZER Edward [place] Insurance:ANTHEMPolic FITZWATERDOB: Community y Number: [id number] Hospital [id number] Repository Date:4295-74-23IK [address] [place] [address] 02[address]JN: 07/15/2018 Tertiary NOT GIVENUNK [place] Insurance:SELF PAY [facility] Number: Effective Repository Date:2018-07-15 07/02/2018 ELIEZER Edward Primary ELIEZER Edward [facility] FITZWATERDOB: Insurance:MEDICARE FITZWATERDOB: [facility] [place] [id number] PART [facility] Number: [id number] [place] [address] [id number] [place] [address] Date:2018-07-02 [place] [address]~CHERELLE@ 3378-48-37Yyuw 76[address]Jqo: (055) OTMAIL.COMTel: Name:[facility] [phone] Administrators LLCPO ()Tel: (000) (HP)Tel: (330) [address]Tblbamffw, 000-0000 (WP) [phone] (WP) [place] [address]YO: 07/02/2018 Secondary [facility]:ANTHEM BLUE FITZWATERDOB: [facility] [id number] Repository Number: [address] [id number] [place], [place] Date:2018-07-02 [address]Aym: [phone] [id number] [phone] Name:[address] ()Tel: (000) [phone] [place] 000-0000 () 62[address]XX: 06/25/2018 CHRISTELLE E Primary ELIEZER S [place] [id number] Insurance:MEDICARE FITZWATERDOB: Critical access hospital PART A [facility] [id number], [place] Number: Repository [address]Agh: 330 [id number] [phone] () Date:2018-06-17 06/25/2018 Secondary ELIEZER Edward [place] Insurance:ANTHEMPolic FITZWATERDOB: Community y Number: [id number] Hospital [id number] Repository Date:5159-79-50RB [address] [place] [address] 134[address]CA: 06/25/2018 Tertiary NOT GIVENUNK [place] Insurance:SELF PAY [facility] Number: Effective Repository Date:2018-06-17 06/17/2018 CHRISTELLE E Primary ELIEZER S [place] [id number] Insurance:MEDICARE FITZWATERDOB: Critical access hospital PART A [facility] [id number], [place] Number: Repository [id number]: (003) [id number] [phone] () Date:2016-12-06 06/17/2018 Secondary ELIEZER S [place] Insurance:ANTHEMPolic FITZWATERDOB: Community y Number: [id number] Hospital [id number] Repository Date:1001-43-62SJ [address]HGQVEGG, [place] [address]MB: 06/17/2018 Tertiary NOT GIVENUNK [place] Insurance:SELF PAY [facility] Number: Effective Repository Date:2018-06-17 05/29/2018 ELIEZER Edward Primary EL[facility]ZER [facility]: Insurance:MEDICARE FITZWATERDOB: [facility] PART BPolicy Number: [id number] Repository [place] [id number] [address] [place], [place] Date:2018-05-29 [place] [address]~CHERELLE@ 7201-29-24Vhxi 867[address]Cip: (347) YOSELINIL.ROBERel: Name:[facility] [phone] Administrators LLCPO (HP)Tel: (000) (HP)Tel: (330) [address] [address]Btzlisqny, 000-0000 (WP) [phone] (WP) [place] [address]HA: 05/29/2018 Secondary [facility] Insurance:ANTHCRISTAL BLUE [facility]: [facility] [id number] Repository Number: [address] [id number] [place], [place] Date:2018-05-29 [address]Qma: (029) [phone] [phone] Name:[address] Box (HP)Tel: (000) 656[address]Miqfoww, [place] 000-0000 (WP) [address]QC: 04/27/2018 ELIEZER Edward Primary ELIEZER FosterH[facility] EmergencyD[facility]: Insurance:MEDICARE FITZWATERDOB: [facility] PART BPolicy Number: [id number] Repository [place] [id number] [address] [place], [place] Date:2018-04-27 [place] [address]~CHERELLE@ 0151-67-35Jiea 330[address]Ytz: (330) OTMAIL.COMTel: Name:[place] [phone] Administrators LLCPO (HP)Tel: (000) (HP)Tel: (330) [address]Xblzvwbxl, 000-0000 (WP) [phone] (WP) [place] [address]PK: 04/27/2018 Secondary [facility] [id number] Repository Number: [address] [id number] [place], [place] Date:2018-04-27 415[address]Pee: (330) [id number] [phone] Name:[facility] Box (HP)Tel: (000) [phone], [place] 000-0000 (WP) [address]LC: 04/27/2018 [facility]:MEDICARE FITZWATERDOB: [facility] PART BPolicy Number: [id number] Repository [place] [id number] Adali [place], [place] Date:2018-04-27 [facility] [place] [address]~CHERELLE@ 9988-96-43Inhg 91236Wsk: (330) OTMAIL.COMTel: Name:[place] [phone] Administrators LLCPO (HP)Tel: (000) (HP)Tel: (330) [address] [address]Npburrtzg, 000-0000 (WP) [phone] (WP) [place] [address]IG: 04/27/2018 [facility] [id number] Repository Number: [address] [id number] [place], [place] Date:2018-04-27 20[address]Nsa: (330) [id number] [phone] Name:R[address] Box (HP)Tel: 000) 038929Jgtyrsh, [place] 000-0000 () [address]HM: 12/10/2017 CHRISTELLE Hernandez Primary ELIEZER Arboleda [id number] Insurance:MEDICARE FITZWATERDOB: [facility] PART A olicy [id number], [place] Number: Repository [address]Apx: 330 [id number] [phone] (HP) Date:2016-12-06 12/10/2017 Secondary ELIEZER Arboleda Insurance:ANTHEMPolic FITZWATERDOB: Community y Number: [id number] Hospital [id number] Repository Date:0720-60-32IL [address]LUEXFPP, [place] [address]HZ: 12/10/2017 Tertiary NOT GIVENUNK [place] Insurance:SELF PAY [facility] Number: Effective Repository Date:2017-12-10 12/03/2017 [facility] FITZWATERDOB: Insurance:MEDICARE FITZWATERDOB: [facility] [id number] PART olicy Number: [id number] Repository [place] [id number] [address] [facility] [facility] CENTERDADUNDALK, [place] Date:2017-11-30 [place] [address]~CHERELLE@ 4266-21-63Ogwx 599[address]Liq: (128) SUNILel: Name:[facility] [phone] Administrators LLCPO (HP)Tel: (000) (HP)Tel: (330) [address] [address]Cmryektil, 000-0000 (WP) [phone] () [place] [address]DP: 12/03/2017 Secondary ELIEZER S [facility] Insurance:ANTHEM BLUE FITZWATERDOB: [facility] [id number] Repository Number: [address] [id number] [place], [place] Date:2017-11-30 [address]Nfg: [phone] 4778-89-28Xtqz [phone] Name:[address] Box (HP)Tel: (000) [phone], [place] 000-0000 (WP) [address]EZ: 11/09/2017 [facility] CAreZWATERDOB: Insurance:MEDICARE FITZWATERDOB: [facility] PART BPolicy Number: [id number] Repository [place] [id number] Adali [place], [place] Date:2017-11-09 [place] [address]~CHERELLE@ 6832-60-58Ivwr 20596Axo: (012) OTMAIL.COMTel: Name:[facility] [phone] Administrators LLCPO (HP)Tel: (000) (HP)Tel: (330) [address] [address]Ydphvnqqa, 000-0000 (WP) [phone] (WP) [place] [address]KO: 11/09/2017 Secondary [facility] Insurance:ANTHCRISTAL BLUE FITWATERDOB: [facility] [id number] Repository Number: Adali [place] [id number] [place], [place] Date:2017-11-09 [address]Dgk: (200) 4774-48-07Aiyc [phone] Name:[address] Box (HP)Tel: (000) [phone], 000-0000 (WP) [address]TJ:
== END ==
PROVIDERS: Family Provider Family Medicine; PCP Family Medicine; Referring Provider Internal Medicine Gastroenterology; Visit Provider Internal Medicine Gastroenterology
DX: R13.10 Dysphagia, unspecified (principal)
CPT/HCPCS: 74220

== ENCOUNTER → 2018-11-11 12:40 | Outpatient (CLI) | payer MEDICARE, BC, SELFPAY ==
[2018-09-18 11:31] VITALS: BMI 22.7
--- NOTE | 2018-11-11 12:43 | CT_ITS ---
STUDY: CT ABDOMEN AND PELVIS WITH CONTRAST REASON FOR EXAM: Female, 73 years old. Generalized abdominal pain. Diarrhea. History of breast cancer. Status post lymph node dissection. RADIATION DOSAGE (If Supplied By Facility): CTDIvol = ( 14.64 ) mGy, DLP = ( 561.99 ) mGycm TECHNIQUE: Transaxial images were obtained from the dome of the diaphragm to the symphysis pubis with oral contrast. Isovue 300 100 IV/Oral was administered. Sagittal and coronal images were reconstructed. Individualized dose optimization techniques were used for this CT. COMPARISON: June 25, 2018. CT PET scan July 29, 2018. Report of nuclear medicine bone scan July 19, 2018. FINDINGS: The visualized lung bases are unremarkable. The visualized portions of the heart are within normal limits. 0.7 cm simple cyst caudate lobe of the liver. Cholelithiasis. No change in 0.6 cm low-attenuation lesion superior medial aspect of the spleen which does not represent a simple cyst. Normal pancreas. Normal bilateral adrenal glands. Normal right kidney. Normal left kidney. Moderate to severe abdominal and pelvic ascites. Normal visualized stomach. Normal small intestine. Normal colon. The appendix is visualized and appears normal. Normal abdominal aorta. Normal inferior vena cava. Left para-aortic and aortocaval lymphadenopathy the largest mass of lymph nodes at approximately the level of the kidneys measuring 1.5 x 1.3 cm on the right and 2.1 x 1.5 cm on the left. No intra-abdominal free air. Normal urinary bladder. Uterus is not visualized compatible with hysterectomy. Evaluation of the adnexa is limited due to pelvic ascites. Normal abdominal wall. Postoperative changes of posterior lumbar fusion L3-L5. Bilateral rods and pedicle screws. CT/Abdomen/Pelvis WITH Contrast IMPRESSION: Moderate to severe abdominal and pelvic ascites increased since the prior examination. Ascites is likely malignant. Mild increase in periaortic and aortocaval adenopathy. Cholelithiasis. Stable small hepatic cyst. Stable subcentimeter splenic lesion since 2018. This probably represents a cyst or hemangioma. Recommend continued follow-up. Stable posterior lumbar fusion. Electronically Signed: Julian Blanco MD at 2:44 EST , Service support ,
[2018-11-11 13:20] LABS: CREATININE FINGERSTICK < 0.6 mg/dL (0.55-1.02)
== END ==
PROVIDERS: Family Provider Family Medicine; PCP Family Medicine; Referring Provider Internal Medicine Medical Oncology; Visit Provider Internal Medicine Medical Oncology
DX: C50.911 Malignant neoplasm of unspecified site of right female breast (principal); C78.6 Secondary malignant neoplasm of retroperitoneum and peritoneum; R13.10 Dysphagia, unspecified
CPT/HCPCS: 74177; 92610; Q9967

== ENCOUNTER → 2018-11-12 10:08 | Outpatient (CLI) | payer MEDICARE, BC, SELFPAY ==
[2018-09-18 11:31] VITALS: BMI 22.7
--- NOTE | 2018-11-12 10:09 | NM_ITS ---
CLINICAL: 73-year-old female with reported history of chronic nausea. SEMI-SOLID PHASE 99m Tc SULFUR COLLOID GASTRIC EMPTYING STUDY COMPARISON: CT of the abdomen-pelvis report 11/11/2018 FINDINGS: The patient was administered 1.0 mCi of 99m Tc sulfur colloid mixed with oatmeal and consumed per os. Image acquisitions in the anterior and posterior projections for a total of 60 minutes. There is prompt visualization of the stomach. There is no gastroesophageal reflux identified. First order kinetics are maintained throughout the duration of the acquisitions. The T1/2 linear fit was calculated to be 58.56 minutes, (Normal: 12-56 minutes). NM/Gastric Emptying Study IMPRESSION: 1. MILDLY ABNORMAL 99m Tc sulfur colloid semi-solid phase (oatmeal) gastric emptying imaging examination. A. There is minimally delayed semi-solid phase gastric emptying compared to normal controls with maintained first order kinetics throughout all components of the examination. (Goldie bustos al, J Nucl Med Tech 38: 186, 2010). Electronically Signed: Nick Tineo DO at 23:05 EST Tel , Service support ,
== END ==
PROVIDERS: Family Provider Family Medicine; PCP Family Medicine; Referring Provider Internal Medicine Gastroenterology; Visit Provider Internal Medicine Gastroenterology
DX: R11.2 Nausea with vomiting, unspecified (principal)
CPT/HCPCS: 78264; A9541

== ENCOUNTER 2018-11-20 08:28 | Day surgery (SDC) | payer MEDICARE, BC, SELFPAY ==
[2018-11-14 10:21] VITALS: BMI 25.2
[2018-11-20] VITALS (10 sets, daily range): BP systolic 83–122; BP diastolic 39–55; PULSE 48–58; RESP 16; TEMP 36.3–36.6; O2SAT 93–99; BMI 25.8
[2018-11-20] MEDS: Cefazolin 2 GM in 0.9% Normal Saline 100 ML IV (09:20)
--- NOTE | 2018-11-20 10:30 | PCM.OPRPT ---
Report of Operation Date of Procedure: 11/20/18 Pre-Operative Diagnosis: z45.2, metastatic breast cancer Post-Operative Diagnosis: Same Surgery/Procedure Performed:: 1. Placement of left IJ Port-A-Cath. 2. Use of ultrasound. 3. Use of fluoroscopy Type of Anesthesia:: MAC/Supplemental Anesthesiologist: Zack Tao Special Medications: Ancef 2 g IV x1 Specimen's removed: None Estimated Blood Loss (mL): < 10 cc Fluids Replaced: 800 cc Description of Procedure: After informed consent was given, the patient was brought to the operating room and placed in the supine position. Appropriate time out protocol was followed. He was then given IV conscious sedation for anesthesia. The patient's left upper chest and neck were then prepped with a surgical skin preparation and sterile surgical drapes were placed. After proper landmarks were ascertained, the skin at the upper left chest area was then infiltrated with 1:1 mixture of 1% lidocaine with epinephrine and 0.5% maricaine. A needle trocar was then inserted into the left internal jugular vein with ultrasound guidance-multiple vessels were viewed with u/s and the left IJ was chosen-- and there was good aspiration of venous blood. A wire was then threaded into the needle trocar and this was visualized under fluoroscopy to ensure that the wire was in the superior vena cava. Once this was done, then the needle trocar was removed. A small skin mike was made with an 11 blade knife at the wire entrance site. The angled [place] was used to get into the superior vena cava. The dilator with the introducer sheath attached was then placed over the wire into the left internal jugular vein via the Seldinger technique and this was visualized under fluoroscopy. The dilator and introducer sheath was not going initially down towards the heart. 300 Isovue 5 cc plain was used to inject the vein to look for any stricture no strictures were seen appeared that the dilator was just against the vein wall. The dilator and sheath were pulled back and left in the confluence of the internal jugular veins. The dilator and sheath were in proper position as visualized by fluoroscopy. A subcutaneous pocket was then created caudad to the catheter insertion site. A transverse skin incision was made after the skin and subcutaneous tissues were infiltrated with local anesthetic. Blunt dissection was then used to create a space large enough for placement of the subcutaneous port. The catheter was then tunneled into the subcutaneous pocket. The wire and dilator were then removed. The catheter was then threaded into the introducer sheath and did make the turn towards the heart. It was positioned with its tip at the junction of the superior vena cava and the right atrium as visualized under fluoroscopy. The excess catheter was transected. The catheter was then attached to the subcutaneous port using manufacturers guidelines. The catheter was flushed with a heparin saline mixture prior to placement. Hemostasis was carefully controlled with electrocautery. The port was sutured to the subcutaneous fascia using 3-0 PDS suture at two sites. The port was then placed in the subcutaneous pocket and the sutures were ligated. The incision were reapproximated with interrupted subdermal 3-0 vicryl sutures. The skin was reapproximated with 3-0 nylon suture in a interrupted fashion. Steristrips were used for reinforcement of the skin closure at IJ insertion site and a sterile opsite dressings were applied. The patient tolerated the procedure well. Implants Used: Bard PowerPort isp M.R.I. 6Fr Lot [id number] Grafts/Implants Used: Bard PowerPort isp M.R.I. 6Fr Lot [id number] - Complications none - Admit VTE Documentation VTE Present on Admission: Yes VTE Mechan Device Prophylaxis: SCD's
--- NOTE | 2018-11-20 10:37 | DCINST_ITS ---
Discharge Diet: No Restrictions Discharge Activity: May not drive while taking narcotic pain medications. May shower in (days): 5 - Keep port site clean and dry for 5 days okay to get neck incision wet after 1 day, okay to shower if the port site is taped off with a Ziploc bag Lifting Restrictions: No lifting greater than 15 pounds with the left arm for 1 week Call your doctor if your incision/area has: Continuous Slow Oozing, Sudden Increased Bleeding, Increased Pain/ Swelling, Increased Redness, Foul Smelling Discharge, Swelling at the incision site Call your doctor if you observe: Fever of 101 or Higher Change Dressing in (Days):: 3 Allergies/Adverse Reactions: Allergies No Known Allergies Allergy (Verified 11/20/18 08:42) Medications to take at Discharge Metoprolol Tartrate [Lopressor (Beta [place])] 50 mg PO QHS 03/30/14 Calcium Carbonate [Tums] 1,000 mg PO Q4H PRN PRN 01/14/15 Oxybutynin Chloride [Ditropan Xl] 10 mg PO DAILY 12/10/17 Tamoxifen Citrate [Nolvadex] 20 mg PO BID #60 tab 09/04/18 Famotidine [Acid Controller] 20 mg PO BID 11/13/18 Ondansetron HCl 4 mg PO Q8H PRN 30 Days #30 tablet 11/20/18 Primary Care Physician: Rudy Hameed DO [Primary Care Provider] - Test Results: Test results from this visit will be discussed in further detail at your follow- up appointment, if applicable. Please Follow Up With: Geni Mane MD - Any issues after 5:00 on the weekends call [phone] with any concerns. When: Call the office for follow-up suture removal in 10 days Proposed Discharge Date: 11/20/18
--- NOTE | 2018-11-20 10:40 | RAD_ITS ---
STUDY: X-RAY CHEST REASON FOR EXAM: Female, 73 years old. Port placement. TECHNIQUE: Single AP portable view of the chest. COMPARISON: None. FINDINGS: A left-sided portacatheter is in place. The tip is in the right atrium. EKG electrodes are seen. The patient is status post right mastectomy with right axillary node dissection. Mild increased markings at the lung bases suggesting mild basilar scarring. Blunting of the left costophrenic angle. Normal size heart. Normal mediastinum and tosha. Normal visualized pulmonary arteries. There is atherosclerotic calcification of the aortic arch with tortuosity. Normal visualized thoracic spine. Findings suggestive of a calcific tendinitis of the right shoulder. There is no demonstrated abnormality of the visualized soft tissue structures of the upper abdomen. RAD/CXR for Line Placement IMPRESSION: The tip of the left portacatheter is in the right atrium. Electronically Signed: Atilio Orr, at 12:26 EST , Service support ,
== END 2018-11-20 12:55 | disposition home or self-care (01) ==
LOC: SDC 08:29 → AC 09:07
PROVIDERS: Family Provider Family Medicine; PCP Family Medicine; Referring Provider Surgery; Visit Provider Surgery
PROC: (CPT 36571; principal; 2018-11-20 09:45)
DX: C78.6 Secondary malignant neoplasm of retroperitoneum and peritoneum (principal); R18.0 Malignant ascites; Z85.3 Personal history of malignant neoplasm of breast; K21.9 Gastro-esophageal reflux disease without esophagitis; I51.9 Heart disease, unspecified; I34.1 Nonrheumatic mitral (valve) prolapse; Z79.899 Other long term (current) drug therapy
CPT/HCPCS: 36571; 76937; 71045; 77001; J7120; C1769; J2405

== ENCOUNTER → 2018-11-25 11:28 | Outpatient (CLI) | payer MEDICARE, BC, SELFPAY ==
[2018-11-25 09:53] VITALS: BMI 24.9
--- NOTE | 2018-11-25 11:36 | VDLE_ITS ---
Reason For Study: LEG PAIN RIGHT LEFT GSV is normal. GSV is normal. CFV is compressible, spontaneous, phasic, CFV is compressible, spontaneous, phasic, competent and demonstrates normal competent, and demonstrates normal augmentation. augmentation. FV is compressible, spontaneous, phasic, FV is compressible, spontaneous, phasic, competent and demonstrates normal competent and demonstrates normal augmentation. augmentation. POP V is compressible, spontaneous, phasic, POP V is compressible, spontaneous, phasic, competent and demonstrates normal competent and demonstrates normal augmentation. augmentation. T/P Trunk is compressible. T/P Trunk is compressible. PTV is compressible. PTV is compressible. RT PerV is compressible. LT PerV is compressible. Procedure Exam performed in department. The study was technically difficult. A preliminary report was called and/or faxed to Marivel Townsend @ [phone] @ 12:15 pm. Interpretation Summary No evidence for acute deep venous thrombosis bilateral lower extremities with patent and compressible bilateral great saphenous veins. Right groin lymph node 3.4 x 1.1cm Left groin lymph node 3.1 x 0.95cm Ordering Physician: Marivel Townsend Referring Physician: Rudy Hameed Performed By: Deanna Delgado, BELKIS, RVT
== END ==
PROVIDERS: Family Provider Family Medicine; PCP Family Medicine; Referring Provider Nurse Practitioner Family; Visit Provider Nurse Practitioner Family
DX: M79.604 Pain in right leg (principal); M79.605 Pain in left leg
CPT/HCPCS: 93970

== ENCOUNTER 2019-01-01 14:00 | Outpatient (RCR) | payer MEDICARE, BC, SELFPAY ==
[2018-09-18 11:31] VITALS: BMI 22.7
--- NOTE | 2018-11-11 11:00 | SOAP_ITS ---
REASON FOR REFERRAL: The Patient is a 73 year old female referred for a clinical assessment of the swallow function at [facility] on 11/11/2018 due to persistent dysphagia status post stage IIIA (pT2, pN2, M0) grade 2 infiltrating lobular carcinoma of the right breast (2008) that has recently increased in regards to symptomology. The Patient denies any coughing or throat clearing during PO intake, though does report post prandial sensations of stasis / globus sensation with all textures with occasional reflux to the oropharyngeal arena with slight improvement following eructation (belching), with occasional (x3) emesis after ??pushing? self to consume higher quantities; reports emesis did not consist of acidic tasting materials, though material was dark black in appearance on the last occasion (~ 1 month prior to assessment); denies odynophagia; denies suboptimal intake behaviors (tachyphagia, bolus bolting, or aerophagia). She reports a 20lb weight loss over the past 6 months, with a gradual return of hypogeusia (Grade I per SSTA) similar to hypogeusia appreciated during initial chemotherapy intervention. She denies any current or previous issues with aspiration related pulmonary complications, to include pneumonia, bronchitis, or unexplained asthma symptoms; reports intermittent mild xerostomia; denies diurnal sialorrhea. She reports persistent restricted mandibular movement with intermittent right sided temporomandibular joint ?clicking? accompanied by mild discomfort, with no significant changes over the last few months; reports prior incidence of transient ?lockjaw?. The Patient is fully ambulatory, no difficulties with posture maintenance, though does maintain a kyphotic posture while seated / during ambulation. She is independent for all ADLs and IADLs; appears cognitively intact with appropriate emotional affect. MEDICAL HISTORY: Stage IIIA (pT2, pN2, M0) grade 2 infiltrating lobular carcinoma of the right breast (2008) status post lumpectomy (02/15/2009), status post right modified radical mastectomy and axillary dissection (03/15/2009), status post TCH (Docetaxel + Carboplatin + Trastuzumab) chemotherapy x6 cycles, (completed 08/05/2009), status post Herceptin maintenance (2009), status post radiation therapy to the right mastectomy site and right supraclavicular area (2009); gastroesophageal reflux disease, status post tonsillectomy, section, hysterectomy, lumpectomy, and laparoscopy. PREVIOUS MODIFIED BARIUM SWALLOW STUDY: none ADDITIONAL OBJECTIVE ASSESSMENT RESULTS: 10/07/2018 barium swallow study revealed a normal plain film x-ray examination (barium swallow) of the esophagus. 09/13/2018 MRI revealed no acute intracranial abnormality or evidence of metastatic disease 06/25/[address] revealed a small sclerotic focus within the T12 vertebral body must be regarded with suspicion for the possibility of metastatic disease; small left-sided pulmonary nodule, in the left lower lobe, measuring approximate 4.4 mm; minimal sliding hiatal hernia. Evidence of gastroesophageal reflux to the proximal 3rd of the esophagus; kyphoscoliosis, osteopenia. ORAL MOTOR / MODIFIED CRANIAL NERVE ASSESSMENT: CNV, VII, IX, X, and XII grossly intact. Natural upper / lower dentition; prior restorative work completed, reports currently placed on a periodontal care protocol through her dentist, which has improved her gingival integrity. Moist pinkish appearance to the oral mucosa without reported xerostomia. Appropriate volitional cough intensity. Slight intermittent dysphonia / vocal harshness. Noted kyphosis. Restricted mandibular opening with reported intermittent ?clicking? located in the right temporomandibular joint; Inter- Incisor Distance (IID): 2.75 cm (Grade II trismus). SUPPLEMENTARY DYSPHAGIA ASSESSMENT RESULTS: Eating Assessment Tool ? 10 (EAT-10): 20 (score >15 or higher 2.4x more likely to aspirate) Reflux Symptom Index (RSI): 22 (>13 may be indicative of significant reflux) [facility] Xerostomia Questionnaire: Sialorrhea Scoring Scale (SSS): 1/9 (dry, never drools) World Health Organization (WHO) Oral Mucositis Scale: Grade 0 (no objective findings) Scale of Subjective Total Taste Acuity (STTA): Grade I (mild loss of taste acuity, but not inconvenient in daily life; no diet changes) Inter-incisor Distance (IID): 2.75 cm; Grade II: Inter-incisor distance between 2.9 and 2 cm CLINICAL ASSESSMENT OF SWALLOW FUNCTION (STRUCTURED): Repetitive Saliva Swallowing Test (RSST): Pass; > 2 dry swallows within 30 seconds. Swallowing Performance Scale (PSP): 3 (mild) Functional Oral Intake Scale (FIOS): 6 (total oral intake with no special preparation, but must avoid specific foods or liquid items) COGNITIVE COMMUNICATION ASSESSMENT RESULTS: Santos Index of [place] in Activities of Daily Livin (independent) Marie Rose Ney Instrumental Activities of Daily Living Scale (IADL): 8 (independent) Functional Assessment Of Cancer Therapy - Breast Cancer (FACT-B): 74 Physical Well-Bein Social / Family Well- Bein Emotional Well-Bein Functional Well-Bein Additional Concerns: 12 RESULTS OF THE EVALUATION: Clinical assessment of the swallow function completed this date, with the Patient presenting with suspected mild oropharyngeal dysphagia (R13.12) with grade II trismus (IID 2.75 cm) with abnormal esophageal phase symptomology reported. RECOMMENDATIONS: [place] through the assessment the Patient informed me that she was currently to remain NPO, as she was to undergo further diagnostic assessment that requires strict NPO status; she was unaware as to the nature of the clinical swallow examination. Unfortunately, non PO trials were completed due to the Patients NPO status. Regardless, sufficient information was gleaned through the remainder of the assessment to suggest that all deficits would likely be pharyngeal or (more likely) esophageal based, and would likely benefit from further diagnostic workup under fluoroscopy, as one cannot definitively rule out silent aspiration nor fully assess the Patient?s pharyngeal and pharyngoesophageal phase functioning through clinician assessment / bedside swallow evaluation. Will recommend further assessment of the oropharyngeal swallow function under fluoroscopy due to the subjective nature of the current assessment and above mentioned limiting factors. The Patient requires intensive skilled speech-language intervention targeting diet texture management and training / implementation of recommended compensatory strategies; with goal adjustment pending MBS completion. DIET TEXTURE RECOMMENDATIONS: Will recommend a regular textured, thin liquid diet with the following recommended aspiration precautions in place: consider cutting tougher textures into bite sized pieces, reduced bolus volume / rate of ingestion, seated upright at 90 degrees during PO intake, remain upright for 30-60 minutes post meal (GERD precaution), medications one at a time with liquid chaser. FUNCTIONAL OUTCOMES: OUTCOME 1: The Patient will tolerate the least restrictive means of nutrition to facilitate adequate hydration / nutrition with optimum safety and efficiency of swallowing function during P.O. intake without overt signs and symptoms of aspiration. OUTCOME 2: The Patient will demonstrate and utilize recommended compensatory swallowing techniques to facilitate improved airway protection and decreased risk for aspiration during PO intake. OUTCOME 3: The Patient will participate in a Modified Barium Swallow (MBS) study to objectively assess the Patient?s oropharyngeal and pharyngoesophageal swallowing function, to determine the least restrictive means of nutrition, to objectively assess the effectiveness of preventative strategies / precautions, and to identify appropriate intervention approaches / strategies to implement during treatment sessions at the supervised level. OUTCOME 4: goal adjustment as needed post MBS Krishna Long M.A., CCC-RADIAL ROUTER OPERATOR MBSImP Certified, LSVT Certified [facility] Speech-Language Pathology Department [email or web address]
--- NOTE | 2019-01-01 14:05 | RE_ITS ---
REASON FOR REFERRAL: The Patient is a 73 year old female referred for a clinical assessment of the swallow function at [facility] due to persistent dysphagia status post stage IIIA (pT2, pN2, M0) grade 2 infiltrating lobular carcinoma of the right breast (2008) that has recently increased in regards to symptomology. The Patient was initially scheduled for a clinical evaluation of the swallow function on 11/11/2018, though midway through the assessment the Patient informed me that she was currently to remain NPO, as she was to undergo further diagnostic assessment that requires strict NPO status; she was unaware as to the nature of the clinical swallow examination. Unfortunately, non PO trials were completed due to the Patients NPO status. The Patient was able to participate in PO trials this date. The Patient reports recently undergoing esophageal dilatations with Dr. Olsen since the previous session, with resulting stabilization of weights from prior assessment, and resolution of persistent sensations of stasis / globus sensation with all textures with occasional reflux to the oropharyngeal arena with slight improvement following eructation (belching). She reports no incidences of emesis, and continues to deny any presence of odynophagia. She denies any current or previous issues with aspiration related pulmonary complications, to include pneumonia, bronchitis, or unexplained asthma symptoms; reports intermittent mild xerostomia; denies diurnal sialorrhea. She reports persistent restricted mandibular movement that fluctuates in regards to intensity, with intermittent right (and to a lesser degree left) sided temporomandibular joint ?clicking? accompanied by mild discomfort, with no significant changes over the last few months; reports prior incidence of transient ?lockjaw?; plans to discuss with her dentist during upcoming sessions. The Patient is fully ambulatory, no difficulties with posture maintenance, though does maintain a kyphotic posture while seated / during ambulation. She is independent for all ADLs and IADLs; appears cognitively intact with appropriate emotional affect. MEDICAL HISTORY: Stage IIIA (pT2, pN2, M0) grade 2 infiltrating lobular carcinoma of the right breast (2008) status post lumpectomy (02/15/2009), status post right modified radical mastectomy and axillary dissection (03/15/2009), status post TCH (Docetaxel + Carboplatin + Trastuzumab) chemotherapy x6 cycles, (completed 08/05/2009), status post Herceptin maintenance (2009), status post radiation therapy to the right mastectomy site and right supraclavicular area (2010); esophageal dysmotility status post esophageal dilatation (2019), gastroesophageal reflux disease, status post tonsillectomy, section, hysterectomy, lumpectomy, and laparoscopy. PREVIOUS MODIFIED BARIUM SWALLOW STUDY: none ADDITIONAL OBJECTIVE ASSESSMENT RESULTS: 10/07/2018 barium swallow study revealed a normal plain film x-ray examination (barium swallow) of the esophagus. 09/13/2018 MRI revealed no acute intracranial abnormality or evidence of metastatic disease 06/25/[address] revealed a small sclerotic focus within the T12 vertebral body must be regarded with suspicion for the possibility of metastatic disease; small left-sided pulmonary nodule, in the left lower lobe, measuring approximate 4.4 mm; minimal sliding hiatal hernia. Evidence of gastroesophageal reflux to the proximal 3rd of the esophagus; kyphoscoliosis, osteopenia. ORAL MOTOR / MODIFIED CRANIAL NERVE ASSESSMENT: CNV, VII, IX, X, and XII grossly intact. Natural upper / lower dentition; prior restorative work completed, reports continued placement on a periodontal care protocol through her dentist, which has improved her gingival integrity. Moist pinkish appearance to the oral mucosa without reported xerostomia. Appropriate volitional cough intensity. Slight intermittent dysphonia / vocal harshness. Noted kyphosis. Restricted mandibular opening with reported intermittent ?clicking? located in the right temporomandibular joint; Inter-Incisor Distance (IID): 3.1 cm (Grade I trismus); slight improvement. SUPPLEMENTARY DYSPHAGIA ASSESSMENT RESULTS: Eating Assessment Tool ? 10 (EAT-10): 13 (3+ may represent swallowing problems) Reflux Symptom Index (RSI): 9 (>13 may be indicative of significant reflux) [facility] Xerostomia Questionnaire: 5 Sialorrhea Scoring Scale (SSS): 1/9 (dry, never drools) World Health Organization (WHO) Oral Mucositis Scale: Grade 0 (no objective findings) Scale of Subjective Total Taste Acuity (STTA): Grade I (mild loss of taste acuity) Inter-incisor Distance (IID): 3.1 cm (Grade I) CLINICAL ASSESSMENT OF SWALLOW FUNCTION (STRUCTURED): Repetitive Saliva Swallowing Test (RSST): Pass; > 2 dry swallows within 30 seconds. 1oz (30mL) Water Swallowing Test (1oz WST): Normal ? 1 (of 5) 3oz (90mL) Water Swallow Test (3oz WST): Abnormal; coughing during / after deglutition Mackey Assessment of Swallowing Ability ? Cancer (MASA-C): 185 (mild) MASA-C Dysphagia Risk Rating: Possible; lowered probability of disorder Swallowing Performance Scale (PSP): 3 (mild) Functional Oral Intake Scale (FIOS): 7 (total oral intake with no restrictions) CLINICAL ASSESSMENT OF SWALLOW FUNCTION (SUBJECTIVE): ORAL PREPARATORY PHASE: sufficient mastication rate and quality with sufficient oral containment; preserved management of breathing / bolus formation. ORAL TRANSITIONAL PHASE: no signs of transitional incompetence; no signs of bolus consolidation impairments with sufficient oral clearance no signs or symptoms of premature posterior bolus loss. PHARYNGEAL PHASE: mild reduction in hyolaryngeal excursion and duration upon digital palpation possibly suggestive of suboptimal laryngeal vestibule closure / pressure / duration, though in isolation this may lack clinically significance; intermittent / prominent audible swallow with larger bolus volumes possibly suggestive of pharyngeal swallow delay / dyssynchrony; occasional multiple swallows during trials of smaller / rather manageable bolus volumes suggestive of pharyngeal dysmotility; no subjective signs of velopharyngeal impairments; prandial / post prandial throat clearing possibly suggestive of overt aspiration during trials of thin liquids (larger bolus sizes with sequential ingestion) ameliorated with reductions in bolus volume; no further signs or symptoms of penetration / aspiration throughout trials. ESOPHAGEAL PHASE: esophageal phase appears unremarkable status post esophageal dilatation, with improvements in RSI and EAT-10 scoring and apparent amelioration of previous subjective complaints. RESULTS OF THE EVALUATION: Clinical assessment of the swallow function completed this date, with the Patient presenting with mild oropharyngeal dysphagia (R13.12) with grade I trismus (IID 3.1 cm) RECOMMENDATIONS: Discussed the results of the assessment with the Patient, along with options for further intervention and possible objective vdeofluoroscopic assessment, though the Patient politely declined any further intervention as she feels as though her symptomology has improved sufficiently and is managing without complication. I provided brief overview of signs and symptoms of aspiration, with recommendations for the Patient to further discuss symptoms with primary care physician. No further skilled speech-language services warranted at this time targeting dysphagia, though would be more than willing to reinitiate intervention if clinically warranted. DIET TEXTURE RECOMMENDATIONS: Will recommend a regular textured (IDDSI: 7), thin liquid diet (IDDSI: 0) diet RECOMMENDED COMPENSATORY STRATEGIES: Reduced bolus volume / rate of ingestion, seated upright at 90 degrees during PO intake, consider crushing / halving larger pills with pureed textures. Krishna Long M.A., CCC-TRAINING CONSULTANT MBSImP Certified, LSVT Certified [facility] Speech-Language Pathology Department [email or web address]
--- NOTE | 2019-05-16 14:29 | HP.SP.DC_ITS ---
ST Discharge Summary - Discharged: Discharge: The Patient is a 73 year old female who attended 2 skilled speech- language intervention sessions spanning from 11/11/2018 to 01/01/2019 targeting persistent dysphagia status post stage IIIA (pT2, pN2, M0) grade 2 infiltrating lobular carcinoma of the right breast (2008) that has recently increased in regards to symptomology. To date, the Patient maintains tolerance of a regular textured (IDDSI: 7), thin liquid diet (IDDSI: 0) diet without significant difficulty aside from occasional globus sensation with ingestion of larger pills. The Patient politely declined any further intervention following the 01/01/2019 session, as she feels as though her symptomology has improved sufficiently and is managing without complication. I provided brief overview of signs and symptoms of aspiration, with recommendations for the Patient to further discuss symptoms with primary care physician. No further skilled speech- language services warranted at this time targeting dysphagia, though would gladly re-initiate intervention as needed moving forward.
== END 2019-01-01 19:00 | disposition home or self-care (01) ==
LOC: SP 14:00
PROVIDERS: Family Provider Family Medicine; PCP Family Medicine; Visit Provider Internal Medicine Medical Oncology
DX: R13.10 Dysphagia, unspecified (principal); C50.911 Malignant neoplasm of unspecified site of right female breast; C78.6 Secondary malignant neoplasm of retroperitoneum and peritoneum
CPT/HCPCS: 92610

== ENCOUNTER → 2019-01-23 14:44 | Outpatient (CLI) | payer MEDICARE, BC, SELFPAY ==
[2019-01-08 10:38] VITALS: BMI 198.7
--- NOTE | 2019-01-23 14:46 | CT_ITS ---
STUDY: CT CHEST WITH CONTRAST REASON FOR EXAM: Female, [address] chest 06/25/2018 RADIATION DOSAGE (If Supplied By Facility): CTDIvol = ( 8.55 ) mGy, DLP = ( 540.28 ) mGycm TECHNIQUE: Transaxial imaging was performed following intravenous administration of 100 IV Isovue 300. Individualized dose optimization techniques were used for this CT. COMPARISON: None. FINDINGS: There is a history of right mastectomy with surgical scarring and surgical clips in the right axilla. There is stable right upper lobe focal pulmonary scarring. There is stable scattered pulmonary scarring including mild subpleural linear scarring. There is a stable 5 mm left lower lobe pulmonary nodule. There is stable 5 mm hypodense lesion left lobe of the thyroid. Normal heart and pericardium. There is stable deformity right anterior third rib at the costosternal junction likely old trauma or degenerative There are stable small subcentimeter anterior precarinal lymph nodes. There are a few stable less than 1 cm left axillary lymph nodes Normal hilar regions. Normal enhanced pulmonary arteries. Normal aorta arch and descending thoracic aorta. The previously described sclerotic bone lesion in T12 is again noted there is there are no new sclerotic lesions. There is a central venous catheter.. Stable degenerative changes of the thoracic spine with stable thoracic kyphosis CT/Chest WITH Contrast IMPRESSION: Stable exam, stable right mastectomy in postsurgical scarring within the right axilla Stable focal right upper lobe pulmonary scarring, scattered stable bilateral linear scarring Stable 5 mm left lower lobe pulmonary nodule Stable 5 mm hypodense lesion left lobe of the thyroid seen in retrospect on prior study this could be further evaluated with thyroid ultrasound Stable small subcentimeter anterior precarinal and left axillary lymph nodes Stable indeterminate T12 sclerotic bone lesion possibly metastatic Central venous catheter Stable degenerative changes thoracic spine with stable kyphosis Electronically Signed: aSmir Woody, at 16:45 EDT Tel , Service support ,
--- NOTE | 2019-01-23 14:46 | CT_ITS ---
STUDY: CT ABDOMEN AND PELVIS WITH CONTRAST REASON FOR EXAM: Female, 73 years old. Breast cancer, metastatic disease RADIATION DOSAGE (If Supplied By Facility): CTDIvol = ( 8.55 ) mGy, DLP = ( 540.28 ) mGycm TECHNIQUE: Transaxial images were obtained from the dome of the diaphragm to the symphysis pubis without oral contrast. 100 IV/Oral Isovue 300 was administered. Sagittal and coronal images were reconstructed. Individualized dose optimization techniques were used for this CT. COMPARISON: 11/11/2018 FINDINGS: The visualized lung bases are unremarkable. The visualized portions of the heart are within normal limits. There is a stable 7 mm cyst within the caudate lobe. there are stable gallstones. There is stable 7 mm hypodense lesion within the spleen.. Normal pancreas. Normal bilateral adrenal glands. There is significant decrease in size of prior described retrocrural, pericaval periaortic retroperitoneal adenopathy. There is a lymph node in the right periaortic region at the level kidneys which measures approximately 7.5 mm in greatest diameter measuring 1.5 x 1.3 cm on prior study. There is a 8 mm left para-aortic lymph node which on prior study measured 2.1 x 1.5 cm. There is stable mild distention of the right renal pelvis. Right ureter is normal.. Normal left kidney. There is been resolution of prior described abdominal ascites. Normal visualized stomach. Normal small intestine. There is a moderate to large colonic fecal load with distention of the colon. The appendix is visualized and appears normal. Normal abdominal aorta. Normal inferior vena cava. There is decrease in size of lymph nodes within the pelvis. There is decrease in size iliac adenopathy. One lymph node node in the left common iliac region measured approximately 1.1 x 9 mm this lymph node and now measures approximately 1.1 x 6 mm. There is mild distention of the bladder.. Normal abdominal wall. Evaluation is limited in the pelvis due to significant streak artifact from prior fixation rods and interpedicular screws bony fusion lower lumbar spine there is resection of the posterior elements again noted at L4. There are stable degenerative changes lumbar spine. Stable postsurgical deformity left iliac wing. There is prior hysterectomy. CT/Abdomen/Pelvis WITH Contrast IMPRESSION: Improving metastatic lymphadenopathy as described above Resolution abdominal likely malignant ascites Stable cholelithiasis Stable small hepatic cyst Stable small subcentimeter splenic lesion most likely cyst or hemangioma Degenerative changes and postsurgical changes lumbar spine unchanged Likely fecal impaction moderate to large colonic fecal load mild colonic distention Mild distended bladder Stable mild distention right renal pelvis, most likely partial UPJ obstruction or extrarenal pelvis Electronically Signed: Samir Woody, at 16:57 EDT Tel , Service support ,
[2019-01-23] MEDS: 0.9% Saline Lock 10 ML Syringe IV (15:30)
== END ==
PROVIDERS: Family Provider Family Medicine; PCP Family Medicine; Referring Provider Internal Medicine Medical Oncology; Visit Provider Internal Medicine Medical Oncology
DX: C50.911 Malignant neoplasm of unspecified site of right female breast (principal); C78.6 Secondary malignant neoplasm of retroperitoneum and peritoneum
CPT/HCPCS: 71260; 74177; Q9967; A4216

== ENCOUNTER → 2019-02-17 | Outpatient (CLI) | payer MEDICARE, BC, SELFPAY ==
[2019-01-29 10:30] VITALS: BMI 20.4
--- NOTE | 2019-02-17 10:59 | ECHODONC_ITS ---
Reason For Study: High Risk Meds-Chemo Procedure This was a 2D Doppler, Color Flow transthoracic echocardiogram. Myocardial strain analysis was performed in this exam to aid in the assessment of cardiac function. Exam performed in department. Left Ventricle Normal LV size. Left ventricular systolic function is normal. The estimated ejection fraction is 65 %. Stage 1 diastolic dysfunction. No regional wall motion abnormalities noted. Right Ventricle Normal RV size. Normal systolic function. Atria Normal left atrium. Normal right atrium. Mitral Valve Normal mitral valve. Tricuspid Valve Normal tricuspid valve. Mild tricuspid valve insufficiency. Pulmonary artery systolic pressure is 34 mmHg. Aortic Valve Trisinus/trileaflet aortic valve. Pulmonic Valve Normal pulmonic valve. Great Vessels Normal aortic root. The pulmonary artery is normal size. Normal inferior vena cava. Pericardium/Pleural No pericardial effusion. MMode/2D Measurements & Calculations LVIDd: 3.7 cm IVSd: 0.87 cm Ao root diam: 3.5 cm LVIDs: 2.3 cm LVPWd: 0.92 cm LA dimension: 3.8 cm FS: 38.5 % LAV(MOD-bp): 51.7 ml LA A4 area: 19.1 cm2 RA A4 area: 14.8 cm2 LAV(MOD-bp) Indexed: 34.0 ml/m2 LAV(MOD-sp2): 50.0 ml LAV(MOD-sp4): 50.4 ml Time Measurements MV dec time: 0.30 sec Doppler Measurements & Calculations MV E max clemente: 96.5 cm/sec Lat Peak E' Clemente: 11.2 cm/sec Med Peak E' Clemente: 6.5 cm/sec MV A max clemente: 104.6 cm/sec E/E' lat: 8.6 E/E' med: 14.8 MV E/A: 0.92 MV V2 max: 131.9 cm/sec MV P1/2t max clemente: 131.9 cm/sec Ao V2 max: 136.8 cm/sec MV max P.0 mmHg MV P1/2t: 83.6 msec Ao max P.5 mmHg MV V2 mean: 71.8 cm/sec MV dec slope: 462.3 cm/sec2 Ao V2 mean: 90.9 cm/sec MV mean P.5 mmHg MVA(P1/2t): 2.6 cm2 Ao mean P.8 mmHg MV V2 VTI: 41.7 cm Ao V2 VTI: 33.1 cm AI max clemente: 414.1 cm/sec LV V1 max: 122.9 cm/sec PA V2 max: 90.5 cm/sec AI max P.6 mmHg LV V1 max P.0 mmHg LV V1 mean P.6 mmHg AI dec slope: 224.9 cm/sec2 LV V1 mean: 73.9 cm/sec AI P1/2t: 539.3 msec LV V1 VTI: 31.1 cm PI end-d clemente: 79.9 cm/sec TR max clemente: 274.0 cm/sec TR max P.0 mmHg Interpretation Summary Normal LV size. Left ventricular systolic function is normal. The estimated ejection fraction is 65 %. Stage 1 diastolic dysfunction. The global longitudinal strain is normal. The global longitudinal strain = -26.3 % (normal). Ordering Physician: Brigido Kauffman Referring Physician: Brigido Kauffman Performed By: Marbin Stoll RCS
== END | disposition home or self-care (01) ==
LOC: CVS 10:58
PROVIDERS: Family Provider Family Medicine; PCP Family Medicine; Referring Provider Internal Medicine Medical Oncology; Visit Provider Internal Medicine Medical Oncology
DX: C50.911 Malignant neoplasm of unspecified site of right female breast (principal); Z79.899 Other long term (current) drug therapy
CPT/HCPCS: 0399T; 93306

== ENCOUNTER 2019-03-04 08:33 | Outpatient (RCR) | payer MEDICARE, BC, SELFPAY ==
[2019-01-29 10:30] VITALS: BMI 20.4
[2019-02-19 09:13] VITALS: BMI 20.9
--- NOTE | 2019-03-04 09:40 | HP.OTEVAL ---
Patient's Visit Information ELIEZER SAMPSON is a 73 year old F, referred to Occupational Therapy by Hunter Cortez MD, with a diagnosis of Right UE lymphedema. Date of Evaluation: 03/04/19 Occupational Therapist: JUANA Allison/Rick, CHT - Subjective Subjective: This 73 year old female was seen for initial OT eval with dx of right UE lymphedema. Pt past hx includes a mastectomy with lymph node removal, with 35-36 radiation treatments- pt states this was 10 years ago. pt feels her arm is the same size it was 10 years ago. pt has not utilized compression garments at this time. - Lymphedema (Circumferential Measure) MCP: right 20cm left 19.5cm Wrist: right 16cm left 15.5cm Lower forearm: right 18cm left 16cm Largest forearm: right 25cm left 22.5cm Elbow: right 25cm left 24cm Largest humerus: right 26cm left 24cm Axcillary: right 27cm left 25cm - Sensation Sensation Comments: when the weather is cold my fingers go numb. - Quick DASH-Disab of Arm,Shoulder& Hand Quick DASH Score: 11.3625 - Goals Demonstrate adequate knowledge of self-massage by 2nd week: Yes Demonstrate adequate knowledge skin care/prec by 2nd week: Yes Demonstrate adequate knowledge therapeutic exercises by d/c: Yes Select approp compression garment w/donning/care/wear by d/c: Yes Voice need to replace compression garment every 4-6mo by dc: Yes - Rehabilitation General Assessment: pt demo with a increase in right UE edema stage 1. PT demo need for skilled therapy services to ed. pt on lymphedema, treatment and mtg. Today pt ed. on lymph system, exercise, breathing and use of compression garment (sleeve and glove) pt dem understanding and at this time does not want to get a compression sleeve or glove. Pts wish is to work with ex and massage. therapist ed. pt on HEP and gave handouts. pt advised compression sleeve and glove would be better, but declined. Therapist advised pt is measure her UE and if a increase in edema happens she is to return to dr. pt agree. Rehabilitation Potential: Good - Anticipated Interventions Anticipated Interventions: Education re Diagnosis, Education re Life-long lymphedema Management, Education re Skin Care and Precautions, Education re Self Massage Techniques, Education re Correct Donning Tech,Care&Wearing Sched Comp Garments, Home Program - Visit Plan TEXT: Thank you for the opportunity to evaluate your patient. For Medicare and Medicare HMO plans, please review the plan of care and approve it. It will need to be FAXED BACK to us at [phone] for Medicare purposes. Please let me know if there are questions or concerns regarding this plan of care. Physician Signature: Date:
--- NOTE | 2019-05-27 10:10 | HP.OT.NRP ---
HP - Discharge Summary - Patient Information ELIEZER SAMPSON was seen in my office for initial evaluation on 03/04/19. The following Plan of Care was established for this patient: - Anticipated Interventions Anticipated Interventions: Education re Diagnosis, Education re Life-long lymphedema Management, Education re Skin Care and Precautions, Education re Self Massage Techniques, Education re Correct Donning Tech,Care&Wearing Sched Comp Garments, Home Program This patient was last seen in our office 03/04/19. Pertinent comments regarding their Occupational therapy will appear below: pt was seen for initial OT eval and given HEP and ed. on need of compression garment. pt was not receptive to use of compression garment. therapist advised pt to cont with lymph ex. and to measure arm circumference and if arm increases in size to return to dr. pt agreed. pt d/c due to time-lapse in therapy services. At this point I will be discontinuing this patient from occupational therapy. I would be happy to see this patient again in the future if found appropriate by the physician. Thank you! Patrizia Dueñas, OTR/L, CHT
== END 2019-03-04 19:00 | disposition home or self-care (01) ==
LOC: OT 08:33
PROVIDERS: Family Provider Family Medicine; PCP Family Medicine; Referring Provider Radiology Radiation Oncology; Visit Provider Radiology Radiation Oncology
DX: I89.0 Lymphedema, not elsewhere classified (principal); Z90.11 Acquired absence of right breast and nipple; C50.911 Malignant neoplasm of unspecified site of right female breast
CPT/HCPCS: 97166

== ENCOUNTER → 2019-06-02 | Outpatient (CLI) | payer MEDICARE, BC, SELFPAY ==
[2019-05-14 09:30] VITALS: BMI 21.7
--- NOTE | 2019-06-02 08:06 | CT_ITS ---
STUDY: CT ABDOMEN AND PELVIS WITH CONTRAST REASON FOR EXAM: Female, 74 years old. Follow-up metastatic breast cancer. Status post right mastectomy with radiation and chemotherapy. History of prior hysterectomy. RADIATION DOSAGE (If Supplied By Facility): CTDIvol = ( 8.23 ) mGy, DLP = ( 528.92 ) mGycm TECHNIQUE: Transaxial images were obtained from the dome of the diaphragm to the symphysis pubis with oral contrast. 100mL IV/Oral Isovue 300 was administered. Sagittal and coronal images were reconstructed. Individualized dose optimization techniques were used for this CT. COMPARISON: CT of the chest, June 02, 2019. CT of the abdomen and pelvis, January 23, 2019. FINDINGS: The lungs are well aerated. This is stable soft tissue nodule in the lateral left lower lobe. No new masses or infiltrates are seen. The visualized portions of the heart are within normal limits. There is a small stable cyst in the caudate lobe. The liver is otherwise unremarkable. There are noncalcified laminated gallstones in the gallbladder with mild gallbladder wall edema. There is no evidence of biliary ductal dilatation. Normal spleen. Normal pancreas. Normal bilateral adrenal glands. The right kidney is of normal size. There is normal enhancement without evidence of mass. There is mild hydronephrosis without ureterectasis. The left kidney is of normal size and cortical enhancement. There is mild scarring in the upper pole. There is mild prominence of renal collecting system. Normal left ureter. Type I hiatal hernia. The stomach appears otherwise collapsed. Normal small intestine. . Feces is seen throughout the colon without mass or obstruction. The appendix is visualized and appears normal. Normal abdominal aorta. Normal inferior vena cava. Minimal and stable lymph nodes in the retroperitoneal retrocrural space Normal urinary bladder. Normal vaginal cuff. There is a phlebolith left pelvis. There is a small lymph node lateral to the left common iliac artery which now 1.1 cm in greatest dimension. This appears unchanged No free air or free fluid is seen within the peritoneal cavity. Normal abdominal wall. Again seen is surgical fusion of L3-L5. There are small calcific densities about the right greater trochanter. No visualized fracture, dislocation or destructive osseous pathology. CT/Abdomen/Pelvis WITH Contrast IMPRESSION: 1. No evidence of new metastatic disease. 2. Stable mediastinal pelvic lymphadenopathy. 3. No major interval change when compared to prior study. Electronically Signed: Jesus Camacho DO at 17:50 EDT Tel [phone], Service support ,
--- NOTE | 2019-06-02 08:06 | CT_ITS ---
STUDY: CT CHEST WITH CONTRAST REASON FOR EXAM: Female, 74 years old. Follow-up metastatic breast cancer. Right mastectomy with radiation and chemotherapy. RADIATION DOSAGE (If Supplied By Facility): CTDIvol = ( 8.23 ) mGy, DLP = ( 528.92 ) mGycm TECHNIQUE: Transaxial imaging was performed following intravenous administration of 100mL IV Isovue 300. Multiplanar coronal and sagittal images were reformatted. Individualized dose optimization techniques were used for this CT. COMPARISON: CT of the chest, January 23, 2019 and June 25, 2018. FINDINGS: Left jugular Port-A-Cath with its tip in the distal superior vena cava. The lungs are hyperexpanded. There is minimal apical scarring on the right. There is a 4 mm soft tissue nodule adjacent to the pleural surface in the left lower lobe, best seen on image 79 of series 6. No other focal mass or infiltrate is seen within the lungs There is no demonstrated pleural abnormality. Normal heart and pericardium. There are calcifications of the coronary arteries. There is nonspecific precarinal lymphadenopathy. Normal hilar regions. Normal enhanced pulmonary arteries. There is minimal atherosclerotic changes of the thoracic aorta without aneurysm. There are minimal degenerative changes of the thoracic spine. There is a stable sclerotic lesion with lytic center in the T12 vertebral body which is unchanged from 2018. There are no new lytic or blastic lesions. There is absence of the right breast with surgical clips in the right axilla. There is no demonstrated abnormality of the visualized upper abdomen. CT/Chest WITH Contrast IMPRESSION: 1. Stable nodule in the left lower lobe. This appears unchanged from a chest CT of June 25, 2018. 2. No new mass or infiltrate. 3. Stable mediastinal lymphadenopathy. 4. Stable lesion in T12. 5. No evidence of metastatic disease or local recurrence. Electronically Signed: Jesus Camacho DO at 17:31 EDT Tel [phone], Service support ,
== END | disposition home or self-care (01) ==
LOC: CT 08:05
PROVIDERS: Family Provider Family Medicine; PCP Family Medicine; Referring Provider Internal Medicine Medical Oncology; Visit Provider Internal Medicine Medical Oncology
DX: C50.911 Malignant neoplasm of unspecified site of right female breast (principal); C78.6 Secondary malignant neoplasm of retroperitoneum and peritoneum
CPT/HCPCS: 71260; 74177; Q9967; A4216

== ENCOUNTER → 2019-06-12 | Outpatient (CLI) | payer MEDICARE, BC, SELFPAY ==
[2019-06-04 09:47] VITALS: BMI 21.6
--- NOTE | 2019-06-12 07:52 | MRI_ITS ---
STUDY: MRI BRAIN WITH AND WITHOUT CONTRAST REASON FOR EXAM: Female, 74 years old. Gait disturbance, balance, breast cancer TECHNIQUE: Standardized multiplanar fat and water weighted pulse sequences were obtained. IV Gadavist 10 was administered for the contrast portion of the examination. COMPARISON: 09/12/2018 FINDINGS: There is mild cerebral atrophy with widening of the extra-axial spaces and ventricular dilatation. There are a limited number of small white matter hyperintensities, distributed throughout the deep white matter tracts of the cerebral hemispheres, consistent with mild chronic white matter ischemic changes. There is no evidence for recent intracranial ischemia or other cause of cytotoxic edema on diffusion weighted imaging (DWI). Normal T2* images of the brain without demonstrated susceptibility artifact. There is no demonstrated hemosiderin stain. Normal bilateral basal ganglia. Normal thalami. There is no extra-axial fluid accumulation. Normal flow voids within the major intracranial circulation suggesting patency by spin echo criteria. Normal venous enhancement. There is no enhancing intra-axial or extra-axial abnormality. Normal sella turcica, pituitary gland, infundibular stalk, optic chiasm and hypothalamus. Normal tectal plate and pineal gland. Normal midbrain, david and medulla. Normal cerebellum. Normal basal cisterns. Normal bilateral temporal bones. Normal bilateral internal auditory canals. No demonstrated orbital abnormality, within the constraints of a routine brain study. Normal visualized paranasal sinuses. Normal calvarium and skull base. Normal visualized soft tissue structures. Normal visualized upper cervical spine. MRI/Brain W/WO Contrast IMPRESSION: Involutional changes of the brain, as described above. No MR evidence of metastatic disease. Electronically Signed: Nick Diallo MD at 9:15 EDT Tel , Service support ,
[2019-06-12] MEDS: 0.9% Saline Lock 10 ML Syringe IV (08:52)
== END | disposition home or self-care (01) ==
LOC: MRI 07:27
PROVIDERS: Family Provider Family Medicine; PCP Family Medicine; Referring Provider Internal Medicine Medical Oncology; Visit Provider Internal Medicine Medical Oncology
DX: C50.919 Malignant neoplasm of unspecified site of unspecified female breast (principal)
CPT/HCPCS: 70553; A9575; A4216

== ENCOUNTER → 2019-06-13 | Outpatient (CLI) | payer MEDICARE, BC, SELFPAY ==
[2019-06-04 09:47] VITALS: BMI 21.6
--- NOTE | 2019-06-13 14:09 | ECHODONC_ITS ---
Reason For Study: Cardiotoxic therapy monitoring Procedure This was a 2D Doppler, Color Flow transthoracic echocardiogram. The exam was of adequate technical quality. Exam performed in department. Left Ventricle Normal LV size. Left ventricular systolic function is normal. The estimated ejection fraction is 60 %. The global longitudinal strain = -25 % (normal). Diastolic function is indeterminate. No regional wall motion abnormalities noted. Right Ventricle Normal RV size. Normal systolic function. Atria The left atrium is mildly enlarged. The right atrium is mildly enlarged. No doppler evidence for ASD. Mitral Valve There is moderate to severe mitral annular calcification. Extension of the mitral annular calcification onto the base of the posterior mitral valve leaflet. Equivocal mitral valve prolapse. Mild (1+) mitral valve insufficiency. Tricuspid Valve Normal tricuspid valve. Mild to moderate (1-2+) tricuspid valve insufficiency. Right ventricular systolic pressure estimated to be 28 mmHg. Aortic Valve Trisinus/trileaflet aortic valve. Normal aortic valve. Trivial aortic valve insufficiency. Pulmonic Valve The pulmonic valve is not well visualized. Mild (1+) pulmonic valve insufficiency. Great Vessels Normal sized aortic root. Pericardium/Pleural No pericardial effusion. MMode/2D Measurements & Calculations LVIDd: 3.5 cm IVSd: 1.1 cm Ao root diam: 3.3 cm LVIDs: 1.9 cm LVPWd: 0.86 cm RVDd: 3.5 cm FS: 45.5 % LAV(MOD-bp): 48.3 ml EDV(MOD-sp4): 46.4 ml EDV(MOD-sp2): 52.3 ml LAV(MOD-bp) Indexed: 31.8 ml/m2 ESV(MOD-sp4): 17.3 ml EF(MOD-sp2): 69.2 % LAV(MOD-sp2): 39.7 ml EF(MOD-sp4): 62.7 % LAV(MOD-sp4): 56.3 ml SV(MOD-sp4): 29.1 ml SV(MOD-sp2): 36.2 ml LA A4 area: 19.1 cm2 LA dimension(2D): 3.8 cm RA A4 area: 15.5 cm2 Doppler Measurements & Calculations MV E max clemente: 104.7 cm/sec Lat Peak E' Clemente: 9.6 cm/sec Med Peak E' Clemente: 5.8 cm/sec MV A max clemente: 96.6 cm/sec E/E' lat: 10.9 E/E' med: 18.0 MV E/A: 1.1 Ao V2 max: 144.8 cm/sec AI max clemente: 364.1 cm/sec LV V1 max: 130.9 cm/sec Ao max P.4 mmHg AI max P.3 mmHg LV V1 max P.9 mmHg AI dec slope: 185.1 cm/sec2 AI P1/2t: 576.1 msec PA V2 max: 103.6 cm/sec TR max clemente: 252.1 cm/sec TR max P.4 mmHg Interpretation Summary Left ventricular systolic function is normal. The estimated ejection fraction is 60 %. The global longitudinal strain = -25 % (normal). The left atrium is mildly enlarged. The right atrium is mildly enlarged. There is moderate to severe mitral annular calcification. Extension of the mitral annular calcification onto the base of the posterior mitral valve leaflet. Mild (1+) mitral valve insufficiency. Mild to moderate (1-2+) tricuspid valve insufficiency. Trivial aortic valve insufficiency. Mild (1+) pulmonic valve insufficiency. Right ventricular systolic pressure estimated to be 28 mmHg. Diastolic function is indeterminate. Ordering Physician: Marivel Townsend Referring Physician: Rudy Hameed M.D. Performed By: Nat Drake RDCS
== END | disposition home or self-care (01) ==
LOC: CVS 14:07
PROVIDERS: Family Provider Family Medicine; PCP Family Medicine; Referring Provider Nurse Practitioner Family; Visit Provider Nurse Practitioner Family
DX: Z79.899 Other long term (current) drug therapy (principal)
CPT/HCPCS: 0399T; 93306

== ENCOUNTER → 2019-09-04 12:50 | Outpatient (CLI) | payer MEDICARE, BC, SELFPAY ==
[2019-08-27 09:35] VITALS: BMI 21.9
--- NOTE | 2019-09-04 12:52 | ECHODONC_ITS ---
Reason For Study: Cardiotoxic drug monitoring Procedure This was a 2D Doppler, Color Flow transthoracic echocardiogram. Myocardial strain analysis was performed in this exam to aid in the assessment of cardiac function. Exam performed in department. Left Ventricle Normal LV size. The estimated ejection fraction is 60 %. Diastolic function is indeterminate. No regional wall motion abnormalities noted. Right Ventricle Normal RV size. Normal systolic function. Atria The left atrium is mildly enlarged. The right atrium is mildly enlarged. No doppler evidence for ASD. Mitral Valve There is no mitral valve stenosis. Trivial mitral valve insufficiency. Tricuspid Valve There is no tricuspid stenosis. Mild tricuspid valve insufficiency. Pulmonary artery systolic pressure is 30-35 mmHg. Aortic Valve Trisinus/trileaflet aortic valve. There is no aortic stenosis. Mild (1+) aortic valve insufficiency. Pulmonic Valve There is no pulmonic valvular stenosis. Trivial pulmonic valve insufficiency identified. Great Vessels Normal aortic root. Pericardium/Pleural No pericardial effusion. MMode/2D Measurements & Calculations LVIDd: 3.7 cm IVSd: 1.1 cm Ao root diam: 3.3 cm LVIDs: 2.0 cm LVPWd: 0.88 cm RVDd: 3.3 cm FS: 45.6 % LAV(MOD-bp): 54.3 ml LA A4 area: 19.9 cm2 LA dimension(2D): 3.6 cm LAV(MOD-bp) Indexed: 35.1 ml/m2 LAV(MOD-sp2): 48.1 ml LAV(MOD-sp4): 52.5 ml RA A4 area: 15.1 cm2 Doppler Measurements & Calculations MV E max clemente: 85.8 cm/sec Lat Peak E' Clemente: 8.5 cm/sec Med Peak E' Clemente: 5.6 cm/sec MV A max clemente: 86.9 cm/sec E/E' lat: 10.1 E/E' med: 15.3 MV E/A: 0.99 Ao V2 max: 131.2 cm/sec AI max clemente: 409.2 cm/sec LV V1 max: 114.8 cm/sec Ao max P.9 mmHg AI max P.0 mmHg LV V1 max P.3 mmHg AI dec slope: 201.3 cm/sec2 AI P1/2t: 595.4 msec PA V2 max: 98.0 cm/sec TR max clemente: 238.5 cm/sec TR max P.8 mmHg Interpretation Summary The estimated ejection fraction is 60 %. Diastolic function is indeterminate. Mild tricuspid valve insufficiency. Trivial mitral valve insufficiency. Mild (1+) aortic valve insufficiency. Ordering Physician: Marivel Townsend Referring Physician: Rudy Hameed M.D. Performed By: Vidal, Nat, RDCS
== END ==
PROVIDERS: Family Provider Family Medicine; PCP Family Medicine; Referring Provider Nurse Practitioner Family; Visit Provider Nurse Practitioner Family
DX: C50.919 Malignant neoplasm of unspecified site of unspecified female breast (principal); Z51.81 Encounter for therapeutic drug level monitoring; Z79.899 Other long term (current) drug therapy
CPT/HCPCS: 0399T; 93306

== ENCOUNTER → 2019-09-09 07:56 | Outpatient (CLI) | payer MEDICARE, BC, SELFPAY ==
[2019-08-27 09:35] VITALS: BMI 21.9
--- NOTE | 2019-09-09 07:59 | CT_ITS ---
STUDY: CT CHEST WITH CONTRAST REASON FOR EXAM: Female, 74 years old. BREAST CA-CHEMO CHECK UP, RT MASTECTOMY-CHEMO AND RAD TX, HYSTER, OOPHRECTOMY RADIATION DOSAGE (If Supplied By Facility): CTDIvol = ( 8.9 ) mGy, DLP = ( 586.57 ) mGycm TECHNIQUE: Transaxial imaging was performed following intravenous administration of 100ML ISOVUE 300. Individualized dose optimization techniques were used for this CT. COMPARISON: 06/02/2019 FINDINGS: Prior right mastectomy and right axillary dissection. Stable nodule in the left lower lobe, measuring 4 mm. Stable bilateral apical pleural thickening. No evidence of pleural effusion. Unremarkable interstitial markings. Normal heart and pericardium. No evidence of mediastinal widening or pericardial effusion. Stable lymph nodes in the mediastinum with short axis measuring less than 1 cm. Normal hilar regions. Normal enhanced pulmonary arteries. Normal aorta arch and descending thoracic aorta. There are multi-level degenerative changes of the thoracic spine. There is a stable sclerotic lesion with lytic center in the T12 vertebral body which is unchanged from prior study. There are no new lytic or blastic lesions. There is absence of the right breast with surgical clips in the right axilla. Stable subcortical cyst along the superior endplate of T7 measuring 4.8 mm. There is no demonstrated abnormality of the visualized upper abdomen. CT/Chest WITH Contrast IMPRESSION: Prior right mastectomy and right axillary dissection. Stable 4 mm nodule in the left lower lobe. No evidence of pleural effusion or focal consolidation in the bilateral lung parenchyma. Stable subcentimeter lymph nodes in the mediastinum measured along short axis, likely nonpathological. Stable T12 vertebral body sclerosis with lytic center. Stable subcortical cyst along the superior endplate of T7 measuring 4.8 MM, likely benign No new focus of metastatic lesion in the thoracic region. Electronically Signed: Khanh Brown MD at 16:46 EST Tel [phone], Service support ,
--- NOTE | 2019-09-09 07:59 | CT_ITS ---
STUDY: CT ABDOMEN AND PELVIS WITH CONTRAST REASON FOR EXAM: Female, 74 years old. BREAST CA-CHEMO CHECK UP, RT MASTECTOMY-CHEMO AND RAD TX, HYSTER, OOPHRECTOMY RADIATION DOSAGE (If Supplied By Facility): CTDIvol = ( 8.9 ) mGy, DLP = ( 586.57 ) mGycm TECHNIQUE: Transaxial images were obtained from the dome of the diaphragm to the symphysis pubis without oral contrast. IV 100mL Isovue-300 was administered. Sagittal and coronal images were reconstructed. Individualized dose optimization techniques were used for this CT. COMPARISON: 06/02/2019 FINDINGS: The visualized lung bases are unremarkable. The visualized portions of the heart are within normal limits. There is decreased attenuation of the liver consistent with steatosis. Stable cyst within caudate lobe of liver measuring 5.2 x 6.1 mm. There is a solitary gallstone. Stable 7.5 mm low-attenuation in the medial aspect of the spleen. Normal pancreas. Normal bilateral adrenal glands. Stable bilateral extrarenal pelvis of the kidneys. Stable subcentimeter left renal cyst Normal visualized stomach. Normal small intestine. Normal colon. There is non-visualization of the appendix. There is diffuse atherosclerotic calcification of the abdominal aorta, without a demonstrated aneurysm. Normal inferior vena cava. Normal retroperitoneum. Stable lymph node to the left of the left common iliac artery measuring up to 6.3 mm along the short axis, likely physiologic. Normal urinary bladder. There is a small umbilical hernia containing fat. There are diffuse degenerative changes of the visualized lumbar spine with stable post surgical change, and no aggressive osseous lesion.. CT/Abdomen/Pelvis WITH Contrast IMPRESSION: No significant interval change since prior. Stable probable hepatic cyst in the caudate lobe of the liver, with stable 7.5 mm low-attenuation in the medial aspect of the spleen of indeterminate etiology. Stable lymph node to the left of the left common iliac artery measuring up to 6.3 mm along the short axis, likely physiologic. No aggressive osseous lesion. Electronically Signed: Khanh Brown MD at 16:38 EST Tel [phone], Service support ,
[2019-09-09] MEDS: 0.9% Saline Lock 10 ML Syringe IV (08:20)
== END ==
PROVIDERS: Family Provider Family Medicine; PCP Family Medicine; Referring Provider Nurse Practitioner Family; Visit Provider Nurse Practitioner Family
DX: C50.919 Malignant neoplasm of unspecified site of unspecified female breast (principal)
CPT/HCPCS: 71260; 74177; Q9967; A4216

== ENCOUNTER → 2019-11-17 | Outpatient (CLI) | payer MEDICARE, BC, SELFPAY ==
[2019-10-29 10:16] VITALS: BMI 21.9
--- NOTE | 2019-11-17 09:07 | NM_ITS ---
CLINICAL: 75-year-old female with reported history of carcinoma of the breast. WHOLE BODY 99m Tc MDP RADIONUCLIDE BONE SCINTIGRAPHY COMPARISON: Previous whole body bone scintigraphy study dated 07/19/2018, CT of the chest, abdomen and pelvis reports 09/09/2019 FINDINGS: Following the intravenous administration of 25.4 mCi of 99m Tc MDP, whole body bone images reveal: 1. Increased radiopharmaceutical concentration is currently identified in the lower cervical spine posteriorly on the left and right, the acromioclavicular and sternoclavicular compartments of both shoulders, right elbow, wrists bilaterally, the left hand, the right midfoot. 2. Enhanced tracer distribution remains apparent in the right anterior third rib at the costochondral junction. 3. The remaining skeletal structures are scintigraphically unremarkable with normal-appearing renal images and urinary bladder activity identified. NM/Bone Scan Whole Body IMPRESSION: 1. The increase in radiopharmaceutical concentration persistently defined in the right anterior third rib at the costochondral junction is commensurate with trauma and fracture. 2. Degenerative arthritis appears expressed in the cervical spine, bilateral shoulders, right elbow, wrist articulations bilaterally, left hand, the right midfoot. 3. Overall compared to the previous whole body bone scintigraphy study dated 07/19/2018, there is no significant interval change. No current typical scintigraphic evidence of skeletal metastatic disease is demonstrated on the current examination. Electronically Signed: Nick Tineo DO at 23:22 EST Tel , Service support ,
== END | disposition home or self-care (01) ==
LOC: NM 09:07
PROVIDERS: PCP Family Medicine; Referring Provider Internal Medicine Medical Oncology; Visit Provider Internal Medicine Medical Oncology
DX: M54.2 Cervicalgia (principal); C50.911 Malignant neoplasm of unspecified site of right female breast; C78.6 Secondary malignant neoplasm of retroperitoneum and peritoneum
CPT/HCPCS: 78306

== ENCOUNTER → 2020-01-19 | Outpatient (CLI) | payer MEDICARE, BC, SELFPAY ==
[2019-12-31 09:45] VITALS: BMI 22.3
--- NOTE | 2020-01-19 13:07 | ECHODONC_ITS ---
Reason For Study: HIGH RISK CHEMO THERAPY MEDS Procedure This was a 2D Doppler, Color Flow transthoracic echocardiogram. Myocardial strain analysis was performed in this exam to aid in the assessment of cardiac function. Exam performed in department. Left Ventricle Normal LV size. Left ventricular systolic function is normal. The estimated ejection fraction is 65 %. Stage 2 diastolic dysfunction. No regional wall motion abnormalities noted. Right Ventricle Normal RV size. Normal systolic function. Atria The left atrium is mildly enlarged. Normal right atrium. Mitral Valve There is mild to moderate mitral annular calcification. Mild (1+) eccentric mitral valve insufficiency. Tricuspid Valve Normal tricuspid valve. Mild tricuspid valve insufficiency. Pulmonary artery systolic pressure is 30 mmHg. Aortic Valve Normal aortic valve. Trisinus/trileaflet aortic valve. Mild (1+) eccentric aortic valve insufficiency. Pulmonic Valve Normal pulmonic valve. Great Vessels Normal aortic root. The pulmonary artery is normal size. Normal inferior vena cava. Pericardium/Pleural No pericardial effusion. MMode/2D Measurements & Calculations LVIDd: 5.0 cm IVSd: 0.70 cm Ao root diam: 3.1 cm LVIDs: 3.0 cm LVPWd: 0.66 cm RVDd: 3.0 cm FS: 39.6 % LAV(MOD-bp): 70.4 ml LA A4 area: 22.0 cm2 LA dimension(2D): 3.9 cm LAV(MOD-bp) Indexed: 45.5 ml/m2 LAV(MOD-sp2): 65.7 ml LAV(MOD-sp4): 72.8 ml RA A4 area: 11.9 cm2 Time Measurements MV dec time: 0.21 sec Doppler Measurements & Calculations MV E max clemente: 119.3 cm/sec Lat Peak E' Clemente: 10.5 cm/sec Med Peak E' Clemente: 6.5 cm/sec MV A max clemente: 94.7 cm/sec E/E' lat: 11.3 E/E' med: 18.5 MV E/A: 1.3 Ao V2 max: 139.3 cm/sec AI max clemente: 397.6 cm/sec LV V1 max: 120.1 cm/sec Ao max P.8 mmHg AI max P.3 mmHg LV V1 max P.8 mmHg Ao V2 mean: 101.6 cm/sec AI dec slope: 219.2 cm/sec2 LV V1 mean P.4 mmHg Ao mean P.6 mmHg AI P1/2t: 531.2 msec LV V1 mean: 88.8 cm/sec Ao V2 VTI: 34.3 cm LV V1 VTI: 28.4 cm PA V2 max: 106.1 cm/sec TR max clemente: 251.8 cm/sec TR max P.5 mmHg Interpretation Summary Normal LV size. Left ventricular systolic function is normal. The estimated ejection fraction is 65 %. Stage 2 diastolic dysfunction. There is mild to moderate mitral annular calcification. Mild (1+) eccentric mitral valve insufficiency. Mild (1+) eccentric aortic valve insufficiency. The global longitudinal strain = -26 % (normal). Ordering Physician: Brigido Kauffman Referring Physician: Bronson Márquez Performed By: Deanna Delgado RDCS, RVT
== END | disposition home or self-care (01) ==
LOC: CVS 13:07
PROVIDERS: PCP Student in an Organized Health Care Education/Training Program; Referring Provider Internal Medicine Medical Oncology; Visit Provider Internal Medicine Medical Oncology
DX: C50.911 Malignant neoplasm of unspecified site of right female breast (principal); C78.6 Secondary malignant neoplasm of retroperitoneum and peritoneum; Z79.899 Other long term (current) drug therapy
CPT/HCPCS: 93306; 93356

== ENCOUNTER → 2020-03-22 | Outpatient (CLI) | payer MEDICARE, BC, SELFPAY ==
[2020-03-03 10:02] VITALS: BMI 24.4
--- NOTE | 2020-03-22 07:54 | CT_ITS ---
STUDY: CT ABDOMEN AND PELVIS WITH CONTRAST REASON FOR EXAM: Female, 75 years old. BREAST CANCER, METASTATIC TO PERITONEAL, HAD RAD TX AND CHEMO, HTN, SURG-Power Port, right mastectomy, ANGELIA/BSO RADIATION DOSAGE (If Supplied By Facility): CTDIvol = ( 11.52 ) mGy, DLP = ( 508.29 ) mGycm TECHNIQUE: Transaxial images were obtained from the dome of the diaphragm to the symphysis pubis without oral contrast. Oral and amp; IV Readi-CAT and amp; 100mL Isovue-300 was administered. Sagittal and coronal images were reconstructed. Individualized dose optimization techniques were used for this CT. COMPARISON: Comparison is made with prior study dated September 09, 2019. FINDINGS: The patient is status post right mastectomy. The visualized lung bases are unremarkable. There is calcification of the mitral valve annulus. There is decreased attenuation of the liver consistent with steatosis. Stable 7 mm cyst in the caudate lobe of the liver. There is a solitary gallstone. Stable 7.5 mm cyst in the medial central aspect of the spleen at the level of the splenic hilum. Mild splenomegaly. Normal pancreas. Normal bilateral adrenal glands. Normal right kidney. Normal left kidney. Normal visualized stomach. Normal small intestine. Moderate amount of fecal material is seen in the colon. There is non-visualization of the appendix. Normal abdominal aorta. Normal inferior vena cava. Normal retroperitoneum. Normal urinary bladder. There is absence of the uterus consistent with a prior hysterectomy. Normal abdominal wall. There are diffuse degenerative changes of the visualized lumbar spine. Status post laminectomy and fusion at the L3-L4 and L4-L5 levels. CT/Abdomen/Pelvis WITH Contrast IMPRESSION: Stable examination. Electronically Signed: Atilio Orr, at 10:26 EDT , Service support ,
[2020-03-22] MEDS: 0.9% Saline Lock 10 ML Syringe IV (08:25)
== END | disposition home or self-care (01) ==
LOC: CT 07:54
PROVIDERS: PCP Student in an Organized Health Care Education/Training Program; Referring Provider Internal Medicine Medical Oncology; Visit Provider Internal Medicine Medical Oncology
DX: C78.6 Secondary malignant neoplasm of retroperitoneum and peritoneum (principal); C50.911 Malignant neoplasm of unspecified site of right female breast
CPT/HCPCS: 74177; Q9967; A4216

== ENCOUNTER → 2020-04-22 08:12 | Outpatient (CLI) | payer MEDICARE, BC, SELFPAY ==
[2020-04-01 08:29] VITALS: BMI 23.8
--- NOTE | 2020-04-22 08:13 | ECHOD_ITS ---
Reason For Study: CARDIOTOXIC TREATMENT Procedure This was a 2D Doppler, Color Flow transthoracic echocardiogram. Myocardial strain analysis was performed in this exam to aid in the assessment of cardiac function. Exam performed in department. Left Ventricle Normal LV size. Left ventricular systolic function is normal. The estimated ejection fraction is 65 %. Stage 1 diastolic dysfunction. No regional wall motion abnormalities noted. Right Ventricle Normal RV size. Normal systolic function. Atria Normal left atrium. Normal right atrium. Mitral Valve There is mild mitral annular calcification. Mild (1+) eccentric mitral valve insufficiency. Tricuspid Valve Normal tricuspid valve. Mild (1+) tricuspid valve insufficiency. Pulmonary artery systolic pressure is 37 mmHg. Aortic Valve Trisinus/trileaflet aortic valve. Mild focal aortic valve thickening. Mild (1+) eccentric aortic valve insufficiency. Pulmonic Valve Normal pulmonic valve. Great Vessels Normal aortic root. The pulmonary artery is normal size. Normal inferior vena cava. Pericardium/Pleural No pericardial effusion. MMode/2D Measurements & Calculations LVIDd: 3.2 cm IVSd: 0.91 cm Ao root diam: 3.6 cm LVIDs: 2.3 cm LVPWd: 0.94 cm RVDd: 3.3 cm FS: 29.4 % LAV(MOD-bp): 52.9 ml LA A4 area: 18.7 cm2 LA dimension(2D): 4.1 cm LAV(MOD-bp) Indexed: 34.2 ml/m2 LAV(MOD-sp2): 51.7 ml LAV(MOD-sp4): 52.7 ml RA A4 area: 12.4 cm2 Time Measurements MV dec time: 0.24 sec Doppler Measurements & Calculations MV E max clemente: 98.2 cm/sec Lat Peak E' Clemente: 9.2 cm/sec Med Peak E' Clemente: 4.9 cm/sec MV A max clemente: 91.8 cm/sec E/E' lat: 10.7 E/E' med: 20.0 MV E/A: 1.1 MV V2 max: 118.7 cm/sec Ao V2 max: 131.5 cm/sec AI max clemente: 433.0 cm/sec MV max P.6 mmHg Ao max P.9 mmHg AI max P.1 mmHg MV V2 mean: 58.5 cm/sec AI dec slope: 208.9 cm/sec2 MV mean P.8 mmHg AI P1/2t: 607.0 msec MV V2 VTI: 34.1 cm LV V1 max: 102.5 cm/sec PA V2 max: 98.2 cm/sec PI end-d clemente: 68.7 cm/sec LV V1 max P.2 mmHg TR max clemente: 288.8 cm/sec MV P1/2t-pr_phl: 74.7 msec TR max P.4 mmHg Interpretation Summary Normal LV size. Left ventricular systolic function is normal. The estimated ejection fraction is 65 %. Stage 1 diastolic dysfunction. Mild (1+) eccentric aortic valve insufficiency. The global longitudinal strain is normal. The global longitudinal strain = -20.3 % (normal). Ordering Physician: Marivel Townsend Referring Physician: ALMA DELIA BRADFORD Performed By: Felipa Wing, BELKIS, RVT
== END ==
PROVIDERS: PCP Student in an Organized Health Care Education/Training Program; Referring Provider Nurse Practitioner Family; Visit Provider Nurse Practitioner Family
DX: Z51.11 Encounter for antineoplastic chemotherapy (principal); Z51.81 Encounter for therapeutic drug level monitoring; C50.911 Malignant neoplasm of unspecified site of right female breast; C78.6 Secondary malignant neoplasm of retroperitoneum and peritoneum; C79.51 Secondary malignant neoplasm of bone; Z79.899 Other long term (current) drug therapy
CPT/HCPCS: 36591; 80053; 83615; 85025; 93306; 96366; 96367; 96413; J7040; J7050; A4216; J2405; J3490; J9354

== ENCOUNTER → 2020-07-16 | Outpatient (CLI) | payer MEDICARE, BC, SELFPAY ==
[2020-06-23 09:54] VITALS: BMI 24.0
== END | disposition home or self-care (01) ==
LOC: LABSPEC 07:58
PROVIDERS: PCP Family Medicine
DX: R58 Hemorrhage, not elsewhere classified (principal)
CPT/HCPCS: 82274

== ENCOUNTER → 2020-07-28 11:04 | Outpatient (CLI) | payer MEDICARE, BC, SELFPAY ==
[2020-06-23 09:54] VITALS: BMI 24.0
--- NOTE | 2020-07-28 11:06 | ECHOD_ITS ---
Reason For Study: Cardiotoxic drug Procedure This was a 2D Doppler, Color Flow transthoracic echocardiogram. Myocardial strain analysis was performed in this exam to aid in the assessment of cardiac function. The exam was of adequate technical quality. Exam performed in department. Left Ventricle Normal LV size. Left ventricular systolic function is normal. The estimated ejection fraction is 60 %. The global longitudinal strain = -24 % (normal). Diastolic function is indeterminate. No regional wall motion abnormalities noted. Right Ventricle Normal RV size. Normal systolic function. Atria The left atrium is mildly enlarged. Normal right atrium. No doppler evidence for ASD. Mitral Valve There is moderate to severe mitral annular calcification. Extension of the mitral annular calcification onto the base of the posterior mitral valve leaflet. Mild (1+) mitral valve insufficiency. Tricuspid Valve Normal tricuspid valve. Mild to moderate (1-2+) eccentric tricuspid valve insufficiency. Right ventricular systolic pressure estimated to be 39 mmHg. Aortic Valve Trisinus/trileaflet aortic valve. Normal aortic valve. Trivial aortic valve insufficiency. Pulmonic Valve The pulmonic valve is not well visualized. Great Vessels Normal sized aortic root. Pericardium/Pleural No pericardial effusion. MMode/2D Measurements & Calculations LVIDd: 4.0 cm IVSd: 1.0 cm Ao root diam: 3.0 cm LVIDs: 2.3 cm LVPWd: 0.96 cm LA dimension: 3.8 cm FS: 41.2 % LAV(MOD-bp): 49.3 ml LA A4 area: 18.8 cm2 RA A4 area: 12.0 cm2 LAV(MOD-bp) Indexed: 31.6 ml/m2 LAV(MOD-sp2): 42.6 ml LAV(MOD-sp4): 53.1 ml Time Measurements MV dec time: 0.29 sec Doppler Measurements & Calculations MV E max clemente: 132.1 cm/sec Lat Peak E' Clemente: 13.6 cm/sec Med Peak E' Clemente: 8.5 cm/sec MV A max clemente: 104.1 cm/sec E/E' lat: 9.7 E/E' med: 15.6 MV E/A: 1.3 MV V2 max: 145.1 cm/sec MV P1/2t max clemente: 146.4 cm/sec Ao V2 max: 129.1 cm/sec MV max P.4 mmHg MV P1/2t: 111.8 msec Ao max P.7 mmHg MV V2 mean: 78.8 cm/sec MV dec slope: 383.5 cm/sec2 MV mean P.0 mmHg MVA(P1/2t): 2.0 cm2 MV V2 VTI: 47.9 cm AI max clemente: 410.2 cm/sec LV V1 max: 108.9 cm/sec PA V2 max: 106.9 cm/sec AI max P.3 mmHg LV V1 max P.7 mmHg AI dec slope: 224.1 cm/sec2 AI P1/2t: 536.2 msec TR max clemente: 301.0 cm/sec TR max P.2 mmHg Interpretation Summary Left ventricular systolic function is normal. The estimated ejection fraction is 60 %. The global longitudinal strain = -24 % (normal). The left atrium is mildly enlarged. There is moderate to severe mitral annular calcification. Extension of the mitral annular calcification onto the base of the posterior mitral valve leaflet. Mild (1+) mitral valve insufficiency. Mild to moderate (1-2+) eccentric tricuspid valve insufficiency. Trivial aortic valve insufficiency. Right ventricular systolic pressure estimated to be 39 mmHg. Diastolic function is indeterminate. Ordering Physician: Marivel Townsend Referring Physician: Marivel Townsend Performed By: Marbin Stoll RCS
== END ==
PROVIDERS: PCP Student in an Organized Health Care Education/Training Program; Referring Provider Nurse Practitioner Family; Visit Provider Nurse Practitioner Family
DX: C50.919 Malignant neoplasm of unspecified site of unspecified female breast (principal); Z51.81 Encounter for therapeutic drug level monitoring; Z79.899 Other long term (current) drug therapy
CPT/HCPCS: 93306

== ENCOUNTER → 2020-08-18 16:04 | Outpatient (CLI) | payer MEDICARE, BC, SELFPAY ==
[2020-06-23 09:54] VITALS: BMI 24.0
--- NOTE | 2020-08-18 16:07 | CT_ITS ---
STUDY: CT CHEST WITH CONTRAST REASON FOR EXAM: Female, 75 years old. Breast cancer. Assess response to treatment. History of right mastectomy. RADIATION DOSAGE (If Supplied By Facility): CTDIvol = ( 9.27 ) mGy, DLP = ( 670.23 ) mGycm TECHNIQUE: Transaxial imaging was performed following intravenous administration of ; 100mL Isovue-300. Multiplanar coronal and sagittal images were reformatted. Individualized dose optimization techniques were used for this CT. COMPARISON: CT of the abdomen and pelvis, 08/18/2020. CT of the chest, 09/09/2019. FINDINGS: Left jugular Port-A-Cath. Again seen is a small nodular density in the periphery of the left lower lobe unchanged from prior study(Image 76 of series 6). The lungs are otherwise normal. There is no demonstrated pleural abnormality. Normal heart and pericardium. Stable small precarinal lymph nodes. Normal hilar regions. Normal enhanced pulmonary arteries. Normal aorta arch and descending thoracic aorta. Degenerative changes of the thoracic spine. There is a small lucency in the body of T12. The surrounding sclerosis seen on the previous examination is no longer evident. No lytic or blastic lesions. There is absence of the left breast. There is evidence of right axillary dissection. No change in the abdominal findings. Again seen is fatty infiltration of the liver and splenomegaly. There is a stable cyst in the caudate lobe of the liver. CT/Chest WITH Contrast IMPRESSION: 1. Lucency in the T12 vertebral body. The surrounding sclerosis seen on the previous study has decreased. 2. No acute findings or other major interval change. Electronically Signed: Jesus Camacho DO at 22:52 EST Tel [phone], Service support ,
--- NOTE | 2020-08-18 16:07 | CT_ITS ---
STUDY: CT ABDOMEN AND PELVIS WITH CONTRAST REASON FOR EXAM: Female, 75 years old. Breast cancer. Assess response to treatment. History of right mastectomy, back surgery, hysterectomy. RADIATION DOSAGE (If Supplied By Facility): CTDIvol = ( 9.27 ) mGy, DLP = ( 670.23 ) mGycm TECHNIQUE: Transaxial images were obtained from the dome of the diaphragm to the symphysis pubis with oral contrast. Oral and amp; IV Readi-CAT and amp; 100mL Isovue-300 was administered. Sagittal and coronal images were reconstructed. Individualized dose optimization techniques were used for this CT. COMPARISON: CT of the abdomen and pelvis, 03/22/2020. FINDINGS: Absence of the right breast. Bases are clear. The heart is normal in size. There is a small cyst in the caudate lobe of the liver. There is mild fatty infiltration of the liver unchanged from prior study.. There is laminated gallstones within the gallbladder without biliary ductal dilatation. The spleen is enlarged. Normal pancreas. Normal bilateral adrenal glands. There is right hydronephrosis without ureterectasis. Normal left kidney. The left ureter. The stomach is collapsed but otherwise grossly normal. Normal small intestine. Large amount of feces throughout the colon without mass or obstruction. There is non-visualization of the appendix. There is diffuse atherosclerotic calcification of the abdominal aorta, without a demonstrated aneurysm. Normal inferior vena cava. Normal retroperitoneum. Normal urinary bladder. Normal vaginal cuff. There is no pelvic lymphadenopathy. No free air or free fluid is seen within the peritoneal cavity. Normal abdominal wall. There is posterior fusion L4-S1 with laminectomies. There is no lytic or blastic lesions within the visualized osseous structures. CT/Abdomen/Pelvis WITH Contrast IMPRESSION: No acute intra-abdominal or pelvic abnormality or major interval change when compared to prior exam. Electronically Signed: Jesus Camacho DO at 22:43 EST Tel [phone], Service support ,
== END ==
PROVIDERS: PCP Student in an Organized Health Care Education/Training Program; Referring Provider Internal Medicine Medical Oncology; Visit Provider Internal Medicine Medical Oncology
DX: C50.911 Malignant neoplasm of unspecified site of right female breast (principal); C78.6 Secondary malignant neoplasm of retroperitoneum and peritoneum
CPT/HCPCS: 71260; 74177; Q9967; A4216

== ENCOUNTER → 2020-12-02 08:53 | Outpatient (CLI) | payer MEDICARE, BC, SELFPAY ==
[2020-11-30 14:40] VITALS: BMI 24.1
--- NOTE | 2020-12-02 08:56 | NM_ITS ---
CLINICAL: 75-year-old female with history of carcinoma of the breast with apparent recent traumatic fall and subsequent cervical spine fracture. WHOLE BODY 99m Tc MDP RADIONUCLIDE BONE SCINTIGRAPHY COMPARISON: CT of the chest, abdomen and pelvis reports 08/18/2020, previous whole body bone scintigraphy study dated 11/17/2019 FINDINGS: Following the intravenous administration of 24.8 mCi of 99m Tc MDP, whole body bone images reveal: 1. Increased radiopharmaceutical concentration is redemonstrated in the right anterior fourth rib at the costochondral junction and newly apparent in the distribution of the first cervical vertebra posteriorly on the right. 2. Enhanced tracer uptake is defined in the acromioclavicular and sternoclavicular compartments of both shoulders, lower cervical spine posteriorly on the left and right, fourth and fifth lumbar vertebra posteriorly on the left and right, the right midfoot, the left wrist and hand. 3. The remaining skeletal structures are scintigraphically unremarkable with normal-appearing renal images and urinary bladder activity identified. Facilitated radiotracer distribution is noted in the interorbital aspect of the calvarium, bilateral maxilla and mandible most consistent with periostitis. NM/Bone Scan Whole Body IMPRESSION: 1. The increase in tracer uptake redemonstrated in the right anterior fourth rib at the costochondral junction and currently visualized in the first cervical vertebra is most consistent with trauma-fracture. Plain film radiography correlation may be of benefit in the region of the cervical spine if not previously obtained. In patients > 65 years of age, increased radiopharmaceutical concentration on bone scintigraphy in uncomplicated documented fracture, may take > 18 months for complete resolution. (Dustin et al, Seminars of Nuclear Medicine, 13:104, 1983). 2. Degenerative arthritis appears expressed in the bilateral shoulders, lower cervical spine, fourth-fifth lumbar vertebra, the right midfoot, left wrist and hand. 3. Overall compared to the previous whole body bone scintigraphy study dated 11/17/2019, newly identified increased radiopharmaceutical distribution visualized in the first cervical vertebra is most consistent with trauma-fracture. Plain film x-ray correlation is recommended. There is no definitive typical scintigraphic evidence of diffuse axial skeletal metastatic disease on the current examination. Electronically Signed: Nick Tineo DO at 21:24 EDT Tel , Service support ,
[2020-12-02] MEDS: 0.9% Saline Lock 10 ML Syringe IV (09:13)
== END ==
PROVIDERS: PCP Family Medicine; Visit Provider Internal Medicine Medical Oncology
DX: C50.911 Malignant neoplasm of unspecified site of right female breast (principal); C78.6 Secondary malignant neoplasm of retroperitoneum and peritoneum; R18.0 Malignant ascites; S62.339A Displaced fracture of neck of unspecified metacarpal bone, initial encounter for closed fracture
CPT/HCPCS: 78306; A4216

== ENCOUNTER 2021-07-18 14:00 | Inpatient (IN) | payer MEDICARE, BC, SELFPAY ==
[2021-07-18] VITALS (8 sets, daily range): BP systolic 119–131; BP diastolic 52–95; PULSE 59–65; RESP 13–18; TEMP 36.2–36.8; O2SAT 91–98; BMI 22.6; BMI 22.5
--- NOTE | 2021-07-18 15:32 | CT_ITS ---
STUDY: CT BRAIN WITH AND WITHOUT CONTRAST REASON FOR EXAM: Female, 76 years old. Diplopia, balance of, history stage III breast can RADIATION DOSAGE (If Supplied By Facility): CTDIvol = ( 44.99 ) mGy, DLP = ( 1547.23 ) mGycm TECHNIQUE: Transaxial CT imaging of the brain was performed pre and post contrast administration. The examination was performed with intravenous administration of 50ML ISOVUE 370. Individualized dose optimization techniques were used for this CT. COMPARISON: MRI 06/12/2019 FINDINGS: Normal soft tissue structures. Normal calvarium. There is mild cerebral atrophy with widening of the extra-axial spaces and ventricular dilatation. Normal white matter tracts of the cerebral hemispheres. Normal basal ganglia and thalami. Normal brainstem. Normal cerebellum. There is no intracranial hemorrhage. There are no findings of an acute ischemic infarction. There are multiple masses of varying sizes of slightly increased attenuation which demonstrates solid contrast enhancement consistent with metastatic disease. One lesion measures 1 cm in diameter in the The white matter of the right parietal lobe. A 1.5 cm lesion is seen in the right hemisphere of the cerebellum. Normal visualized paranasal sinuses. CT/Brain/Head W/WO Contrast IMPRESSION: Metastatic disease as described above. Electronically Signed: Nick Diallo MD at 16:14 EDT Tel , Service support ,
--- NOTE | 2021-07-18 15:33 | EKG12_ITS ---
Test Reason : DIZZINESS Blood Pressure : / mmHG Vent. Rate : 059 BPM Atrial Rate : 059 BPM P-R Int : 158 ms QRS Dur : 096 ms QT Int : 468 ms P-R-T Axes : 047 017 060 degrees QTc Int : 463 ms Sinus bradycardia with Premature atrial complexes Otherwise normal ECG Confirmed by HOLLI POP, ZACK ([id number]), marketing editor THANH JEREZ ([id number]) on 07/20/2021 8:29:54 AM Referred By: BB/NANCIE Confirmed By:ZACK DE LA GARZA MD
[2021-07-18 15:57] LABS: Absolute Lymphocyte Count 0.58 X10^3/uL (0.83-4.51); Absolute Neutrophil Count 6.6 X10^3/uL (2.0-7.7); Basophil# 0.01 X10^3/uL; Basophil% 0.1 % (0-1); Hematocrit 37.5 % (37-47); Hemoglobin 12.2 g/dL (12.0-15.0); Lymphocyte # 0.58 X10^3/ul (0.83-4.51); Lymphocyte % 7.5 % (19-41); Mean Corp Hgb Conc 32.5 g/dL (32-36); Mean Corpuscular Volume 92.4 fL (81-99); Mean Platelet Vol. 12.3 fl (6.2-12.0); Monocyte# 0.48 X10^3/uL; Monocyte% 6.2 % (0-10); NRBC Flagged by Analyzer 0 % (0-5); Neutrophil # 6.58 X10^3/uL (2.7-7.7); Neutrophil % 85.6 % (47-70); POSITIVE COUNT YES; POSITIVE DIFFERENTIAL YES; Platelet Count 93 K/mm3 (150-450); RBC Distribution Width CV 14.6 % (11.6-14.6); RBC Distribution Width SD 49.8 fl (35.1-43.9); Red Blood Count 4.06 M/mm3 (4.2-5.4); White Blood Count 7.7 K/mm3 (4.4-11.0)
[2021-07-18 16:14] LABS: Differential Indicated SCAN CRITERIA MET
--- NOTE | 2021-07-18 16:23 | EDS_ITS ---
HPI History of Present Illness Chief Complaint: Dizziness Detail of Chief Complaint: Trouble with balance, vision and speech Informant: patient and spouse/S.O. Onset/Context/Timing Onset: Month(s) Context: Sudden Onset Timing: Continuous and Waxes and wanes Quality: Balance has been an issue since beginning of June. Speech since last We Current Severity: Mild Maximum Severity: Moderate Worsened by: Nothing Relieved by: Nothing Associated Symptoms Associated Symptoms: Per HPI Narrative Narrative: Patient is a 76-year-old woman with history of stage II breast cancer who presents with trouble with balance, trouble with speech, diplopia. She and her states she began to have problems with balance starting beginning the month. She was placed on Decadron. She has outpatient test scheduled. Last week she had slurred speech and mixed up words. Onset was July 13. supplemented history. He has a detailed narrative of when symptoms started doctor visits etc. Prior similar symptoms: Yes Recent Illness/Hospitalization: Yes [facility] Medical History Ascites Ascites, malignant Bilateral arm pain Bony sclerosis Breast cancer Breast cancer, right GERD (gastroesophageal reflux disease) Heart disease History of right breast cancer Lung nodule Malignant neoplasm of right female breast Mitral valve prolapse Neck fracture Osteopenia Other specified disorders of bone density and structure, unspecified site Panniculitis of other sites Peritoneal metastases Placement of power port Weight loss Home Medications metoprolol tartrate 50 mg PO QHS 03/30/14 [History Last Taken Unknown] oxybutynin chloride 10 mg PO DAILY 12/10/17 [History Last Taken Unknown] famotidine 20 mg PO BID 11/13/18 [History Last Taken 11/20/18 07:30] multivitamin with folic acid [Thera] 1 tab PO DAILY 10/29/19 [History Last Taken Unknown] calcium carbonate-vitamin D3 1 ea PO DAILY 09/15/20 [History Last Taken Unknown] tamoxifen 20 mg PO BID 90 Days #180 tablet 01/10/21 [Rx Last Taken Unknown] Breast prosthesis #1 ea 02/15/21 [Rx Last Taken Unknown] Mastectomy bra #12 ea 02/15/21 [Rx Last Taken Unknown] ferrous fumarate 324 mg (106 mg iron) tablet 324 mg PO DAILY #30 tab 06/06/21 [Rx Last Taken Unknown] dexamethasone 4 mg tablet 4 mg PO DAILY #14 tab 07/13/21 [Rx Last Taken Unknown] ondansetron 4 mg PO DAILY 07/18/21 [History Last Taken Unknown] Allergy/AdvReac Type Severity Reaction Status Date / Time No Known Allergies Allergy Verified 07/13/21 10:06 Family History Mother Thyroid cancer Father Heart disease Surgical History H/O hand surgery H/O mastectomy H/O: hysterectomy History of section History of endoscopy History of laparoscopy History of lumpectomy History of lumpectomy of right breast History of tonsillectomy Previous back surgery S/P right mastectomy Social History (Updated 07/18/21 @ 16:[address] Ron Talavera MD) household members: spouse Smoking Status: Never smoker second hand exposure: No alcohol intake: never substance use type: does not use ronald/judaism: Mennonite seatbelt use: always do you feel safe at home: Yes ROS ROS ED Constitutional Constitutional ED: Reports weight loss; Denies chills, fever(s), subjective or sweats Eyes Eyes: Reports change in vision and diplopia; Denies blurry vision ENT ENT ED: Denies ear pain, rhinorrhea or sore throat Cardiovascular Cardiovascular: Denies chest pain, orthopnea, palpitations or paroxysmal nocturnal dyspnea Respiratory/Chest Respiratory/Chest: Denies cough, dyspnea, dyspnea on exertion, orthopnea or paroxysmal nocturnal dyspnea Gastrointestinal Gastrointestinal: Reports nausea; Denies abdominal pain, constipation, diarrhea or vomiting Genitourinary Genitourinary ED: Denies dysuria, hematuria or urinary frequency Musculoskeletal Musculoskeletal: Denies arthralgias, back pain, myalgias or neck pain Integumentary Denies rash Neurologic Neurologic: Denies headache(s), paresthesias or weakness Endocrine Endocrinology: Denies polydipsia, polyphagia or polyuria Allergic/Immunologic Allergic/Immunologic ED: Denies mouth swelling, tongue swelling or urticaria EXAM Physical Exam Const Vital Signs: 07/18/21 14:01 Temperature 97.2 F L Temperature Source Temporal Pulse Rate 59 L Respiratory Rate 18 Blood Pressure 119/57 L Blood Pressure Mean 77 Pulse Ox 94 Oxygen Delivery Method Room Air Positive well nourished and well developed General Appearance ED: well developed and NAD; Negative for cyanotic or diaphoretic HEENT Reports TM's clear and moist mucous membranes HEENT Narrative: Ears normal. Nares patent. Uvula midline. Negative for trauma or tenderness Tympanic Membrane ED: Yes TM's clear Eyes PERRL and EOMs intact bilaterally Eyes Narrative: Patient does have nystagmus with lateral gaze left worse than right. General Eye ED: Negative for pale conjunctiva or scleral icterus Neck no lymphadenopathy, supple and no JVD General: Negative for tenderness Chest Wall inspection of chest normal Resp normal respiratory effort and clear to auscultation bilaterally Cardio regular rate, regular rhythm, S1 normal heart sound, S2 normal heart sound and no murmurs GI normal to inspection, nondistended, normoactive bowel sounds, non-tender and non-distended Palpation: soft Back/Spine no CVA tenderness Cervical Spine: Negative for cervical spine tenderness Thoracic Spine / Upper Back: Negative for thoracic spinal tenderness or paraspinal muscle tenderness Extremity normal to inspection General Extremety ED: Yes edema; Negative for tenderness General Extremity: edema Neuro oriented x3 and CN's II-XII intact bilaterally Neuro Narrative: Patient is slurring of her words. There is dysmetria on the left. Gait is broad-based. There is no visual field cut. Sensorium / Orientation: alert Motor Exam: strength 5/5 throughout and general weakness Psych Negative for mental status grossly normal Psych Narrative: Patient has slow psychomotor skills. Skin no rashes or lesions noted and no wounds MDM MDM MDM Narrative Medical decision making narrative: With symptoms that have been present for 1 month and worsening of her symptoms concerned she has metastatic disease to her brain. CT of the head with and without contrast was ordered. Blood work was ordered as well to assess anemia, rule out hyponatremia and other electrolyte abnormalities and may explain her dizziness. The CT of the head reveals metastatic disease. Case was discussed with Dr. Vann. He recommended consultation with radiation oncologist and Decadron. Decadron was ordered. Will inform hospitalist Dr. Vann's recommendation. Patient does have a living well. Patient wants no intubation no CPR DNR comfort care document was signed by me. And specified no intubation and no CPR. She requests that she dies of natural means. Lab Data Labs: Laboratory Results - last 24 hr 07/18/21 15:25 WBC 7.7 RBC 4.06 L Hgb 12.2 Hct 37.5 MCV 92.4 MCH 30.0 MCHC 32.5 RDW Std Deviation 49.8 H RDW Coeff of [place] 14.6 Plt Count 93 L MPV 12.3 H Immature Gran % (Auto) 0.600 Neut % (Auto) 85.6 H Lymph % (Auto) 7.5 L [place] % (Auto) 6.2 Eos % (Auto) 0.0 Baso % (Auto) 0.1 Absolute Neuts (auto) 6.6 Absolute Lymphs (auto) 0.58 L Nucleated RBC % 0 Radiography Diagnostic Testing: Clinical Impression(s) from Imaging Studies Brain CT 07/18/21 15:32 IMPRESSION: Metastatic disease as described above. Electronically Signed: Nick Diallo MD at 16:14 EDT Tel , Service support , EKG Initial EKG: Attestation: I personally reviewed and interpreted this EKG as follows: Interpretation: Sinus Bradycardia (Ventricular rate is 59. The EKG is otherwise unremarkable. VT interval 108 ms. Cures duration 96 ms. QT duration is normal. [place] is normal. There is a premature atrial beat noted.) Discharge Plan Triage Chief Complaint: Dizziness ED Provider: Ron Talavera Dx/Rx/DC Orders Clinical Impression: Breast cancer metastasized to brain Prescriptions: No Action dexamethasone [Decadron] 4 mg tablet 4 mg PO DAILY Qty: 14 RF: 0 metoprolol tartrate 50 MG tablet 50 mg PO QHS RF: 0 oxybutynin chloride 10 MG tablet extended release 24hr 10 mg PO DAILY RF: 0 famotidine 20 MG tablet 20 mg PO BID RF: 0 multivitamin with folic acid [Thera] 1 TABLET tablet 1 tab PO DAILY RF: 0 calcium carbonate-vitamin D3 1 EACH tablet 1 ea PO DAILY RF: 0 ondansetron 4 mg tablet,disintegrating 4 mg PO DAILY RF: 0 tamoxifen 20 MG tablet 20 mg PO BID 90 Days Qty: 180 RF: 3 (DME) Mastectomy bra See Rx Instructions .Route .MEDSUPPLY Qty: 12 RF: 0 (DME) Breast prosthesis See Rx Instructions .Route .MEDSUPPLY Qty: 1 RF: 0 ferrous fumarate [Ferrocite] 324 mg (106 mg iron) tablet 324 mg PO DAILY Qty: 30 RF: 2 Primary Care Provider: Bronson Márquez Referrals: Bronson Márquez DO [Primary Care Provider] - Disposition Disposition: Acute Care [facility]
--- NOTE | 2021-07-18 16:37 | PCM.HP.STD ---
HPI - General General Date of Admission: 07/18/21 Date of Service: 07/18/21 Chief Complaint: Ataxia, dizziness, poor balance. HPI Narrative The patient is a 76 y/o F w/ PMHx: R breast CA w/ malignant ascites w/ peritoneal metastatic disease, GERD, HTN, GERD, Chronic anemia/Fe deficiency anemia who presents to the [facility] ED on 07/18/21 with history of ongoing since 07/09/21 dizziness, difficulty with balance, nausea with occasional episode of emesis, dysmetria especially left-sided as well as double vision which improves when she closes her right eye per her report as well as starting on 07/13/2021 onset of intermittent garbled word salad which is transient and eventually improves with evaluation per her oncologist, surgeon and PCP with planned outpatient MRI of the brain but given not improving prompted ED evaluation; however, given ongoing symptoms patient was brought to the ED per spouse. In the ED work-up included CBC w/ BBC 7.7, hemoglobin 12.2, platelet 93 with lymphopenia, BMP w/ pending upon evaluation, CT Head w/ metastatic disease with significant varying size multiple masses slightly increased attenuation demonstrating solid contrast-enhancement consistent with metastatic disease with 1 specifically 1.5 cm in the right hemisphere of the cerebellum. Patient was administered Decadron 10 mg IV x1 loading in the ED. ED discussed case with Dr. Kauffman who requested consultation with Rad Onc and continuation of decadron IV. [facility] Medical History Ascites Ascites, malignant Bilateral arm pain Bony sclerosis Breast cancer Breast cancer, right GERD (gastroesophageal reflux disease) Heart disease History of right breast cancer Lung nodule Malignant neoplasm of right female breast Mitral valve prolapse Neck fracture Osteopenia Other specified disorders of bone density and structure, unspecified site Panniculitis of other sites Peritoneal metastases Placement of power port Weight loss Home Medications metoprolol tartrate 50 mg PO DAILY 03/30/14 [History Last Taken 07/18/21] oxybutynin chloride 10 mg PO DAILY 12/10/17 [History Last Taken 07/18/21] multivitamin with folic acid [Thera] 1 tab PO DAILY 10/29/19 [History Last Taken 07/18/21] calcium carbonate-vitamin D3 1 ea PO DAILY 09/15/20 [History Last Taken 07/18/21] tamoxifen 20 mg PO BID 90 Days #180 tablet 01/10/21 [Rx Last Taken 07/18/21] ferrous fumarate 324 mg (106 mg iron) tablet 324 mg PO DAILY #30 tab 06/06/21 [Rx Last Taken 07/18/21] dexamethasone 4 mg tablet 4 mg PO DAILY #14 tab 07/13/21 [Rx Last Taken 07/17/21] docusate sodium [Colace] 100 mg PO QODAY PRN 07/18/21 [History Last Taken 07/18/21] famotidine 40 mg PO BID 07/18/21 [History Last Taken 07/18/21] ondansetron 4 mg PO Q8H PRN 07/18/21 [History Last Taken 07/18/21] Allergy/AdvReac Type Severity Reaction Status Date / Time No Known Allergies Allergy Verified 07/13/21 10:06 Family History Mother Thyroid cancer Father Heart disease Surgical History H/O hand surgery H/O mastectomy H/O: hysterectomy History of section History of endoscopy History of laparoscopy History of lumpectomy History of lumpectomy of right breast History of tonsillectomy Previous back surgery S/P right mastectomy Social History (Updated 07/18/21 @ 16:[address] Ron Talavera MD) household members: spouse Smoking Status: Never smoker second hand exposure: No alcohol intake: never substance use type: does not use ronald/moravian: Mennonite seatbelt use: always do you feel safe at home: Yes ROS ROS Narrative Admission Review of Systems: CONSTITUTIONAL: No weight loss, fever, chills, + weakness or fatigue. HEENT: + Double vision. Eyes: No visual loss or yellow sclerae. Ears, Nose, Throat: No hearing loss, sneezing, congestion, runny nose or sore throat. SKIN: No rash or itching, lesions, wounds. CARDIOVASCULAR: No chest pain, chest pressure or chest discomfort, palpitations, edema, orthopnea, syncopal events. RESPIRATORY: No shortness of breath, cough or sputum, wheezing, hemoptysis. GASTROINTESTINAL: + anorexia, nausea, vomiting, No diarrhea, abdominal pain, melena, BRBPR. GENITOURINARY: No dysuria, frequency, urgency or retention. NEUROLOGICAL: + Dizziness, dysmetria, ataxia, double vision, intermittent word salad/aphasia no headache, syncope, paralysis, numbness or tingling in the extremities, focal weakness, change in bowel or bladder control, seizure. MUSCULOSKELETAL: No muscle, back pain, joint pain or stiffness. HEMATOLOGIC: + anemia, bleeding or bruising. LYMPHATICS: No enlarged nodes. No history of splenectomy. PSYCHIATRIC: No history of depression or anxiety. ENDOCRINOLOGIC: No reports of sweating, cold or heat intolerance. No polyuria or polydipsia. ALLERGIES: No history of asthma, hives, eczema or rhinitis. Vital Signs Vital Signs Vital Signs: 07/18/21 14:01 Temperature 97.2 F L Temperature Source Temporal Pulse Rate 59 L Respiratory Rate 18 Blood Pressure 119/57 L Blood Pressure Mean 77 Pulse Ox 94 Oxygen Delivery Method Room Air Weight Weight: 120 lb Body Mass Index (BMI) 22.6 Physical Exam Narrative Physical Examination: General: Awake, alert, oriented to self, place and some recent events, during evaluation patient did have episode of word salad/aphasia, improved near the end, remained cooperative, sitting upright in the ED bed, anxious. Skin: Normal color, normal turgor, no icterus, no cyanosis. HEENT: AT/NC, EOMI, PERRLA, dry MM, no carotid bruits or JVD noted. Lungs: CTA bilaterally, moderate effort, mild decrease BL bases, no rales, ronchi or wheezing. Heart: Mildly bradycardic with regular rhythm; no gallop, rub audible. Abdomen: Soft, NTTP, ND, mildly hyperactive BS, no HSM. Extremities: No cyanosis, clubbing, or edema. Neurological: Patient awake, alert, oriented as noted, cognitive function not baseline intact; pupils equally reactive to light and accommodation, cranial nerves grossly normal except noted mild left-sided lateral nystagmus, double vision reported, field of vision is intact, moving all extremities however does have dysmetria primarily left upper extremity, strength moderately to severely global decreased with no specific focal issue, sensation intact, episodes of aphasia, difficulty with [id number] primarily left-sided, [id number] appropriate, equivocal Babinski. Psychiatric: Affect appears fatigued, occasionally anxious, no acute evidence of depressive feelings. Results Lab / Micro Data Result Diagrams: 07/18/21 15:25 07/18/21 15:25 Labs: Laboratory Results - last 24 hr 07/18/21 15:25: WBC 7.7, RBC 4.06 L, Hgb 12.2, Hct 37.5, MCV 92.4, MCH 30.0, MCHC 32.5, RDW Std Deviation 49.8 H, RDW Coeff of [place] 14.6, Plt Count 93 L, MPV 12.3 H, Immature Gran % (Auto) 0.600, Neut % (Auto) 85.6 H, Lymph % (Auto) 7.5 L, [place] % (Auto) 6.2, Eos % (Auto) 0.0, Baso % (Auto) 0.1, Absolute Neuts (auto) 6.6, Absolute Lymphs (auto) 0.58 L, Nucleated RBC % [address] 07/18/21 15:32 IMPRESSION: Metastatic disease as described above. Electronically Signed: Nick Diallo MD at 16:14 EDT Tel , Service support , Assessment & Plan Assessment/Plan (1) Breast cancer metastasized to brain: QUALIFIERS: Laterality: unspecified laterality Qualified Code(s): C50.919 - Malignant neoplasm of unspecified site of unspecified female breast; C79.31 - Secondary malignant neoplasm of brain (2) Ataxia: PLAN: The patient is a 76 y/o F w/ PMHx: R breast CA w/ malignant ascites w/ peritoneal metastatic disease, GERD, HTN, GERD, Chronic anemia/Fe deficiency anemia who presents to the [facility] ED on 07/18/21 with history of ongoing since 07/09/21 dizziness, difficulty with balance, nausea with occasional episode of emesis, dysmetria especially left-sided as well as double vision which improves when she closes her right eye per her report as well as starting on 07/13/2021 onset of intermittent garbled word salad which is transient and eventually improves with evaluation per her oncologist, surgeon and PCP with planned outpatient MRI of the brain but given not improving prompted ED evaluation; however, given ongoing symptoms patient was brought to the ED per spouse. 1. Ataxia, dizziness with associated nausea/emesis secondary to New Cerebral Metastatic Disease: Will admit to PCU, per discussion with Oncology will continue decadron, will request radiation Oncology consultation and continue Oncology consultation, will obtain MRI Brain with IV contrast, will maintain on IV Keppra to be cautious and also request EEG, continue with neurological assessments, will maintain on fall precautions, will hold any anticoagulant therapy given potential risk for hemorrhage associated, PT/OT/OT consultations for discharge planning as well as case management involvement. 2. 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 Vann, most recent visit 07/13/2021, 6 status post initially lumpectomy 02/15/2009 with eventual right MRM and axillary dissection followed by chemotherapy and radiation with recurrence in 2018 with biopsy of the peritoneum at that time with evidence of metastatic carcinoma consistent with a lobular breast cancer started on tamoxifen with port placement and severe onset ascites at that time however did improve per report with ataxia at that time even with unremarkable MRI of the brain at 06/12/2019, maintained on Kadcyla transition to tamoxifen. Will continue evaluation and treatments as noted above #1. 3. History of Mechanical Fall w/ pathologic fracture type II odontoid process: Patient with mechanical fall with evidence of pathological fracture type II of the odontoid process 11/24/2020 with follow-up MRI 11/26/2020 consistent with bone scan demonstrating activity in the cervical vertebrae with cervical surgery 12/16/2020 at [facility]. 4. Chronic anemia/AOCD: Admission Hgb 12.2, will continue patient home iron supplementation. 5. Hypertension: Continue home regimen including metoprolol with hold parameters as needed, PRN hydralazine. 6. GERD: We will maintain on famotidine. 7. DVT prophylaxis: SCDs, defer any chemoprophylaxis given #1 findings. 8. CODE status: Patient HCPOA is not in place but discussed this with her and her who are present and he would be the ultimate decision maker should she be unable, encourage them to formalize this and recommended they discuss this with social work/case management and living will is currently in place. Discussed CODE status at length including difference between FULL code, DNR-CCA and DNR-CC status. Following discussions about the differences in these status, requested DNR-CCA, no intubation status. Advanced Care Planning Face to Face Time: 16 minutes. Charges/Coding Visit Charges Inpatient E&M: 00852 Init Hosp L3 Procedures Hospitalists Procedures: 56608 Advncd Care Plan 30 Min
[2021-07-18 16:48] LABS: Anisocytosis RARE; Macrocytosis RARE; Platelet Estimate SLT DEC (ADEQ); Red Cell Morphology N CHROM NORMAL (NORM C&C)
--- NOTE | 2021-07-18 17:09 | MRI_ITS ---
STUDY: MRI BRAIN WITH AND WITHOUT CONTRAST REASON FOR EXAM: Female, 76 years old with metastatic lesions to the brain with loss of balance TECHNIQUE: Standardized multiplanar fat and water weighted pulse sequences were obtained. 10 ml of IV Dotarem was administered for the contrast portion of the examination. COMPARISON: None. FINDINGS: There is mild cerebral atrophy with widening of the extra-axial spaces and ventricular dilatation. There are a limited number of small white matter hyperintensities, distributed throughout the deep white matter tracts of the cerebral hemispheres, consistent with mild chronic white matter ischemic changes. There is no evidence for recent intracranial ischemia or other cause of cytotoxic edema on diffusion weighted imaging (DWI). Normal T2* images of the brain without demonstrated susceptibility artifact. There is no demonstrated hemosiderin stain. There are are multiple enhancing nodules throughout the cerebral hemispheres as well as the cerebellum. There may be some leptomeningeal metastasis involving the cerebellar vermis and superior cerebellum. The enhancing nodules range in size from approximately 4 mm to 4 cm in greatest dimension. Normal bilateral basal ganglia. Normal thalami. There is no extra-axial fluid accumulation. Normal flow voids within the major intracranial circulation suggesting patency by spin echo criteria. Normal venous enhancement. Normal sella turcica, pituitary gland, infundibular stalk, optic chiasm and hypothalamus. Normal tectal plate and pineal gland. Normal midbrain, david and medulla. Normal cerebellum. Normal basal cisterns. Normal bilateral temporal bones. Normal bilateral internal auditory canals. No demonstrated orbital abnormality, within the constraints of a routine brain study. Normal visualized paranasal sinuses. Normal calvarium and skull base. Normal visualized soft tissue structures. There is abnormal signal within the odontoid that probably secondary to metastatic disease. Patient appears of a previous surgery of the C2 and C1 vertebral segments. There is probably metastatic disease at C1. MRI/Brain W/WO Contrast IMPRESSION: 1. 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 2. Metastasis to C1 and C2. Electronically Signed: Ethel Cisneros MD at 4:50 EDT , Service support ,
[2021-07-18 17:17] LABS: Magnesium 2.1 mg/dL (1.6-2.6); Phosphorus 3.7 mg/dL (2.5-4.9)
[2021-07-18] MEDS: dexAMETHasone 10 MG/ML Vial IV (17:20)
[2021-07-18] MEDS: Ondansetron 4 MG/2 ML Vial IV (17:30)
[2021-07-18 20:07] LABS: ALB/GLOB Ratio 0.8 RATIO (0.9-2.4); AST(SGOT) 33 U/L (15-37); Alanine Aminotransfer ALT/SGPT 39 U/L (13-56); Albumin, Serum 3.1 g/dL (3.2-5.0); Alkaline Phosphatase 67 U/L (45-117); Anion Gap 4 (5-15); BUN 18 mg/dL (7-18); BUN/Creat Ratio 22.5 RATIO (10-20); Calcium,Total 9.2 mg/dL (8.5-10.1); Chloride 100 mmol/L (98-107); EST Glomerular Filtration Rate 74 mL/min (>60); Est Glom Filt Rate - Afr Amer 89 mL/min (>60); Estimated Creatinine Clearance 44.44 ml/min; Glucose 135 mg/dL (74-106); Potassium 4.2 mmol/L (3.5-5.1); Protein, Total 7.1 g/dL (6.4-8.2); Sodium Level 134 mmol/L (136-145)
[2021-07-18] MEDS: dexAMETHasone 4 MG/ML Vial IV (20:43)
[2021-07-18] MEDS: Tamoxifen 10 MG Tablet 20 MG PO (21:04)
[2021-07-19] VITALS (9 sets, daily range): BP systolic 98–120; BP diastolic 48–55; PULSE 57–85; RESP 16; TEMP 36.4–36.8; O2SAT 94–98
[2021-07-19] MEDS: dexAMETHasone 4 MG/ML Vial IV ×5 (00:06→23:42)
[2021-07-19] MEDS: 0.9% Saline Lock 10 ML Syringe IV ×4 (05:32→23:43)
[2021-07-19 06:11] LABS: Absolute Lymphocyte Count 0.39 X10^3/uL (0.83-4.51); Absolute Neutrophil Count 4.9 X10^3/uL (2.0-7.7); Hematocrit 35.6 % (37-47); Hemoglobin 11.6 g/dL (12.0-15.0); Lymphocyte # 0.39 X10^3/ul (0.83-4.51); Lymphocyte % 7.1 % (19-41); Mean Corp Hgb Conc 32.6 g/dL (32-36); Mean Platelet Vol. 12.1 fl (6.2-12.0); Monocyte# 0.13 X10^3/uL; Monocyte% 2.4 % (0-10); NRBC Flagged by Analyzer 0 % (0-5); Neutrophil # 4.92 X10^3/uL (2.7-7.7); POSITIVE COUNT YES; POSITIVE DIFFERENTIAL YES; Platelet Count 84 K/mm3 (150-450); RBC Distribution Width CV 14.5 % (11.6-14.6); RBC Distribution Width SD 48.7 fl (35.1-43.9); Red Blood Count 3.87 M/mm3 (4.2-5.4); White Blood Count 5.5 K/mm3 (4.4-11.0)
[2021-07-19 06:19] LABS: Differential Indicated SCAN CRITERIA MET
[2021-07-19 06:46] LABS: ALB/GLOB Ratio 0.8 RATIO (0.9-2.4); AST(SGOT) 29 U/L (15-37); Alanine Aminotransfer ALT/SGPT 36 U/L (13-56); Albumin, Serum 2.7 g/dL (3.2-5.0); Alkaline Phosphatase 59 U/L (45-117); Anion Gap 7 (5-15); BUN 18 mg/dL (7-18); BUN/Creat Ratio 21.9 RATIO (10-20); Calcium,Total 8.9 mg/dL (8.5-10.1); Chloride 100 mmol/L (98-107); Creatinine, Serum 0.82 mg/dL (0.55-1.02); EST Glomerular Filtration Rate 72 mL/min (>60); Est Glom Filt Rate - Afr Amer 87 mL/min (>60); Estimated Creatinine Clearance 43.36 ml/min; Globulin 3.5 g/dL (2.2-4.2); Glucose 143 mg/dL (74-106); Potassium 4.3 mmol/L (3.5-5.1); Protein, Total 6.2 g/dL (6.4-8.2); Sodium Level 136 mmol/L (136-145)
[2021-07-19 06:48] LABS: Differential Comment SCANNED; Platelet Estimate SLT DEC (ADEQ)
--- NOTE | 2021-07-19 07:28 | PCS.PANDOC ---
PANDEMIC DOCUMENTATION INITIATED: Date: 05/02/2021 Time: 190
[2021-07-19] MEDS: Tamoxifen 10 MG Tablet 20 MG PO ×2 (10:02→21:07)
[2021-07-19] MEDS: Tolterodine Tartrate 2 MG CAP.SA PO (10:02)
--- NOTE | 2021-07-19 10:08 | TELEMED_ITS ---
[facility] Tele[facility] has confirmed receipt of a request for visit. This document confirms receipt of the order initiating the consult. To find the results of the consultation, please view the patient's reports for the scanned Telemed Consult.
--- NOTE | 2021-07-19 10:42 | MRI_ITS ---
STUDY: MRI CERVICAL SPINE WITHOUT CONTRAST REASON FOR EXAM: Female, 76 years old patient with metastatic breast cancer TECHNIQUE: Standardized fat and water weighted pulse sequences were obtained in the sagittal and axial planes. COMPARISON: Bone scan dated 11/17/2019. FINDINGS: Normal foramen magnum and brainstem-cervical cord junction. Normal craniovertebral junction. Normal anterior atlantoaxial articulation. There is abnormal signal within the odontoid process consistent with metastatic disease. Patient has had surgical fusion of C1 and C2. There is straightening of the normal cervical lordosis. There is mild anterolisthesis at C5-6. There is mild decreased height of the cervical segments probably developmental variant. C2-3: There is mild disk bulge and osteophyte complex. There is mild degenerative arthropathy of the facet joints. Bilateral neuroforamina are patent. There is no significant acquired central canal stenosis. C3-4: There is a disc bulge and osteophyte complex. There is severe right-sided neural foraminal narrowing with potential nerve impingement. There is hypertrophic right-sided facet joint arthropathy. There is also moderate left-sided neural foraminal narrowing with uncovertebral facet arthropathy. There is moderately severe central canal stenosis. C4-5: There is disc bulge and osteophyte complex. There is moderate neural foraminal narrowing. There is no central canal stenosis. C5-6: There is narrowing of the disc. There is mild uncovering the disc secondary to anterolisthesis. There is moderate bilateral neural foraminal narrowing without definite nerve root impingement. There is mild central canal stenosis. C6-7: There is disc bulge and osteophyte complex. There is severe left-sided neural foraminal narrowing with potential nerve impingement. The right neural foramen is moderately narrowed. There is mild central canal stenosis. C7-T1: Normal endplates. Normal disc height, signal and morphology. Normal central canal and intervertebral neural foramina. Normal cervical cord. There is no demonstrated cervical cord syrinx cavity. The paraspinal musculature is atrophic. There is some dilatation of the esophagus which is filled with fluid. MRI/Spine Cervical (Routine) IMPRESSION: 1. Metastatic disease to C2. 2. Multilevel degenerative disc disease and degenerative arthropathy of the cervical spine with neural foraminal narrowing and central canal stenosis, as described. 3. Dilatation of the esophagus which is filled with fluid suggests either esophageal stricture or gastroesophageal reflux. Electronically Signed: Ethel Cisneros MD at 4:42 EDT , Service support ,
--- NOTE | 2021-07-19 10:42 | MRI_ITS ---
EXAM: MR Pelvis Without Intravenous Contrast CLINICAL INDICATION: 76 years old, Female; metastatic breast csa TECHNIQUE: Multiplanar and multisequence MR images of the pelvis without intravenous contrast. This report was created using [employer] report ONtheAIR technology. COMPARISON: None. FINDINGS: Appendix: No evidence of acute appendicitis. Intraperitoneal space: Unremarkable. No ascites or other fluid collection. Bladder: Unremarkable. Reproductive: Unremarkable as visualized. No mass. Bones/joints: There are metastatic lesions in the sacrum and iliac wings bilaterally. No pathologic fracture is identified. The largest metastatic lesion is in the left sacrum measuring 2.3 x 2.4 cm. Postop changes lumbar spine. Soft tissues: Unremarkable. No pelvic wall hernia. Lymph nodes: Unremarkable. No enlarged lymph nodes. MRI/Pelvis (Routine) IMPRESSION: There are metastatic lesions in the sacrum and iliac wings bilaterally. No pathologic fracture is identified. The largest metastatic lesion is in the left sacrum measuring 2.3 x 2.4 cm. Electronically Signed: Moise An MD at 1:12 EDT Tel , Service support ,
--- NOTE | 2021-07-19 10:42 | MRI_ITS ---
STUDY: MRI THORACIC SPINE WITHOUT CONTRAST REASON FOR EXAM: Female, 76 years old patient with metastatic breast cancer. TECHNIQUE: Standardized fat and water weighted pulse sequences were obtained in the sagittal and axial planes. COMPARISON: PET/CT dated 10/12/2020. FINDINGS: There is an increased kyphosis of the thoracic spine. There is no substantial scoliosis. T1-2, T2-3, T3-4, T4-5, T5-6, T6-7, T7-8, T8-9, T9-10, T10-11, T11-12: There is abnormal signal within the T8, T11 and T12 vertebral bodies suggesting metastatic disease. There is abnormal signal within the left-sided pedicle of T4-5 that probably represents metastatic disease.There is generally normal marrow signal characteristics otherwise. Normal visualized thoracic cord. Normal conus medullaris that terminates at the . There appears to be a moderate sided hydronephrosis. There may be small pleural effusions and/or pleural thickening. There appears to be dilatation of the esophagus which is filled with fluid. MRI/Spine Thoracic (Routine) IMPRESSION: 1. Multiple metastases to the thoracic spine, as described. 2. Mild dilatation of the esophagus. 3. Possible right-sided hydronephrosis. Electronically Signed: Ethel Cisneros MD at 4:53 EDT , Service support ,
--- NOTE | 2021-07-19 10:42 | MRI_ITS ---
STUDY: MRI LUMBAR SPINE WITHOUT CONTRAST REASON FOR EXAM: Female, 76 years old patient with metastatic breast cancer. TECHNIQUE: Standardized fat and water weighted pulse sequences were obtained in the sagittal and axial planes. COMPARISON: PET -CT dated 10/12/2020. FINDINGS: T12-L1: There is abnormal signal within T12 suggesting metastatic disease. Normal endplates. Normal disc height, signal and morphology. Normal bilateral facet joints. Normal central canal and bilateral lateral recesses. Normal bilateral intervertebral neural foramina. There is an exaggerated lumbar lordosis. There is no substantial scoliosis. Normal conus medullaris that terminates at the T11-T12 level. L1-2: There is mild retrolisthesis at this level. Normal endplates. There is disc bulge and osteophyte complex. Normal bilateral facet joints. There is mild acquired central canal stenosis. There is mild narrowing of bilateral intervertebral neural foramina. L2-3: There is a broad central disc protrusion. There is moderate thickening of ligamentum flavum. There is moderate degenerative arthropathy of facet joints. There is moderately severe central canal stenosis. Neural foramina are narrowed without evidence for nerve impingement. L3-4: There is mild annular disk bulge and osteophyte complex. There is mild degenerative arthropathy of the facet joints. Bilateral neuroforamina are narrowed without MR evidence for nerve impingement. There is no significant acquired central canal stenosis. Patient has had surgical fusion at this level with interpedicular screws and rods. L4-5: There is mild anterolisthesis at this level with uncovering of the disc. There is mild annular disk bulge and osteophyte complex. There is mild degenerative arthropathy of the facet joints. Bilateral neuroforamina are narrowed without MR evidence for nerve impingement. There is no significant acquired central canal stenosis. Patient has had surgical fusion at this level with interpedicular screws and rods. L5-S1: This has appearance of a transitional vertebral segment with rudimentary disc. Normal endplates. Normal disc height, hydration and morphology. Normal bilateral facet joints. Normal central canal and bilateral lateral recesses. Normal bilateral intervertebral neural foramina. Patient has had surgical fusion at this level with interpedicular screws and rods. There is abnormal signal in the left sacral ala that may represent metastatic disease. There is abnormal signal within the posterior iliac wings that may be the result of previous surgery and bone graft harvesting. However, metastatic disease is also possible particularly on the right. There is mild paraspinal muscular atrophy. There is suggestion for right-sided hydronephrosis. MRI/Spine Lumbar (Routine) IMPRESSION: 1. Findings suggest metastases to T11 and T12, left sacral ala and iliac wings. 2. Patient has a transitional vertebral segment. For purposes of this dictation, last disc is designated L5-S1. 3. Multilevel degenerative disc disease and degenerative arthropathy of the lumbar spine with neural foraminal narrowing and central canal stenosis, as described. Electronically Signed: Ethel Cisneros MD at 5:18 EDT , Service support ,
--- NOTE | 2021-07-19 11:25 | CASEMGMT ---
SHYANN ALVAREZ Assessment: Face to face with pt for initial transition planning/care coordination assessment. SHYANN ALVAREZ introduced self and role at [facility], pt voices understanding and consents to assessment. Pt is currently on room air. is at bedside during assessment. Pt is A/Ox4 and answers all questions appropriately. Care providers, pharmacy, and demographics verified. Presentation: Pt c/o weakness, loss of balance Admitting dx: Ataxia, Mets to brain/breast PCP: Yulisa Specialists: Jamari, onc; Jorge, ortho; Fish, cardio Preferred Pharmacy: [facility] Insurance: MCR A/B, [place] Prescription Benefit: [employer] MCR D Living Will/HPOA: Pt brought LW/HPOA in this visit and they were placed on chart. Pt's , Samir Garcia, is HPOA. LNOK: Samir Garcia, Living Arrangements: Pt lives with in 2 story home and states no concerns at home. Pt is independent with ADL's, but assists if needed. Transportation: drives and states no transportation concerns. DME/HHC: Pt has a walker, grab bars, and shower chair. Pt states no need for any further DME. Pt has had HHC in the past s/p neck surgery and states no hx of SNF. Pt states no concerns with going home at time of discharge. Pt is retired. Pt does not smoke cigarettes or drink ETOH. Pt voices no further concerns/needs. CM to follow PT/OT evals and for any discharge planning/needs. Advised pt to ask for CM if any further questions/concerns/needs arise, voices understanding. Pt Goal: Home Plan: [place] SHYANN ALVAREZ
--- NOTE | 2021-07-19 14:32 | PN.HOSP_ITS ---
Subjective Subjective Patient seen and examined. She was admitted with a complaint of dizziness, poor balance and ataxia. She has a history of metastatic breast cancer. Imaging done on admission showed significant multiple masses in the brain consistent with metastatic disease. She was started on decadron. Patient seen and examined. She was weak and lethargic but had no other complaints. Review of systems is otherwise negative. Objective Data Objective Data Vital Signs: Vital Signs Temp Pulse Resp BP Pulse Ox 97.7 F L 69 16 120/55 L 98 07/19/21 09:00 07/19/21 09:00 07/19/21 09:00 07/19/21 09:00 07/19/21 09:00 Oxygen Delivery Method Room Air Weight: 119 lb 11.376 oz Body Mass Index (BMI) 22.5 Intake & Output: Intake and Output for Last 24 Hours 07/17/21 07/18/21 07/19/21 23:59 23:59 23:59 Intake Total 105 / 505 1385 / 1385 Balance 105 / 505 1385 / 1385 Medical Nutrition Assessment Dietitian: Malnutrition Criteria Met Start: 07/19/21 14:19 Freq: Status: Active Protocol: Document 07/19/21 14:21 RMA (Rec: 07/19/21 14:21 RMA [id number]) Nutrition Malnutrition Evidence of Malnutrition Exists Yes Malnutrition (severe): Acute Illness/Injury,Chronic Evidenced By Suboptimal Energy Intake ( Severe),Weight Loss (Severe) Clinical Problem Acute Disease or Injury Related Malnutrition Etiology Severe protein/calorie malnutrition in the context of acute on chronic cancer w/ metastatic disease related to inadequate oral intake and increased energy needs Signs/Symptoms as evidenced by ~8% wt loss x past 2 weeks and PO meeting less than 50% estimated nutrition needs Status Active Problem Recommendation Dietitian Recommendations/Changes Continue regular diet as tolerated. Will d/c ensure with medpass and offer vanilla ensure compact TID w/ meals, vanilla magic cup BID w/ lunch and dinner as tolerated. Lab / Micro Data Result Diagrams: 07/19/21 05:52 07/19/21 05:52 Labs: Laboratory Results - last 24 hr 07/18/21 15:22: Phosphorus 3.7, Magnesium 2.1 07/18/21 15:25: WBC 7.7, RBC 4.06 L, Hgb 12.2, Hct 37.5, MCV 92.4, MCH 30.0, MCHC 32.5, RDW Std Deviation 49.8 H, RDW Coeff of [place] 14.6, Plt Count 93 L, MPV 12.3 H, Immature Gran % (Auto) 0.600, Neut % (Auto) 85.6 H, Lymph % (Auto) 7.5 L , [place] % (Auto) 6.2, Eos % (Auto) 0.0, Baso % (Auto) 0.1, Absolute Neuts (auto) 6.6, Absolute Lymphs (auto) 0.58 L, Nucleated RBC % 0, Differential Comment SEE COMMENT, Platelet Estimate SLT AUG, RBC Morphology N CHROM, Anisocytosis RARE, Macrocytosis RARE 07/18/21 15:25: Sodium 134 L, Potassium 4.2, Chloride 100, Carbon Dioxide 30.0, Anion Gap 4 L, BUN 18, Creatinine 0.80, Estim Creat Clear Calc 44.44, Est GFR (MDRD) Af Amer 89, Est GFR (MDRD) Non-Af 74, BUN/Creatinine Ratio 22.5 H, Glucose 135 H, Calcium 9.2, Total Bilirubin 0.50, AST 33, ALT 39, Alkaline Phosphatase 67, Total Protein 7.1, Albumin 3.1 L, Globulin 4.0, Albumin/Globulin Ratio 0.8 L 07/19/21 05:52: WBC 5.5, RBC 3.87 L, Hgb 11.6 L, Hct 35.6 L, MCV 92.0, MCH 30.0, MCHC 32.6, RDW Std Deviation 48.7 H, RDW Coeff of [place] 14.5, Plt Count 84 L, MPV 12.1 H, Immature Gran % (Auto) 0.500, Neut % (Auto) 90.0 H, Lymph % (Auto) 7.1 L , [place] % (Auto) 2.4, Eos % (Auto) 0.0, Baso % (Auto) 0.0, Absolute Neuts (auto) 4.9, Absolute Lymphs (auto) 0.39 L, Nucleated RBC % 0, Differential Comment SCANNED, Platelet Estimate SLT 07/19/21 05:52: Sodium 136, Potassium 4.3, Chloride 100, Carbon Dioxide 29.0, Anion Gap 7, BUN 18, Creatinine 0.82, Estim Creat Clear Calc 43.36, Est GFR (MDRD) Af Amer 87, Est GFR (MDRD) Non-Af 72, BUN/Creatinine Ratio 21.9 H, Glucose 143 H, Calcium 8.9, Total Bilirubin 0.30, AST 29, ALT 36, Alkaline Phosphatase 59, Total Protein 6.2 L, Albumin 2.7 L, Globulin 3.5, Albumin/Globulin Ratio 0.8 L Radiography Diagnostic Testing: Radiology Impression Brain CT 07/18/21 15:32 IMPRESSION: Metastatic disease as described above. Electronically Signed: Nick Diallo MD at 16:14 EDT Tel , Service support , Brain MRI 07/18/21 17:09 IMPRESSION: 1. 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 2. Metastasis to C1 and C2. Electronically Signed: Ethel Cisneros MD at 4:50 EDT , Service support , Physical Exam Const alert Orientation / Consciousness: lethargic Exam Limitations: no limitations HEENT head/scalp atraumatic Head and Scalp: normocephalic Mouth: dry mucous membranes Eyes PERRL, EOMs intact bilaterally and conjunctivae normal Neck no lymphadenopathy Resp normal respiratory effort, no retractions, no use of accessory muscles and clear to auscultation bilaterally Cardio regular rate, regular rhythm, S1 normal heart sound, S2 normal heart sound and no murmurs GI normal to inspection, nondistended, normoactive bowel sounds, soft to palpation, non-tender and non-distended Extremity normal to inspection, full ROM and no clubbing, cyanosis or edema Peripheral Pulses: Yes pulses 2+ throughout Skin no rashes or lesions noted Neuro CN's II-XII intact bilaterally and moves all extremities Sensorium / Orientation: awake and alert Psych affect normal Assessment & Plan Assessment/Plan (1) Leptomeningeal metastases: (2) Brain metastases: PLAN: #Ataxia and dizziness due to brain metastases * likely due to leptomeningeal mets from breast cancer * on decadron. * on tamoxifen. * oncology consulted. Radiation oncology also consulted, and per their request, MRI of the cervical, thoracic, lumbar spines as well as sacrum with and without contrast. * per radiation oncology, to be initiated on radiation treatment. * #Breast cancer with mets to the peritoneum and cerebral mets * follows with Dr Kauffman * had lumpectomy in 2008, with right MRM and axillary dissection. She also subsequently had chemotherapy and radiation with recurrence in 2018. Had biopsy of the peritoneum then with evidence of metastatic carcinoma consistent with lobular cancer. * on tamoxifen. * #History of mechnical fall with pathologic fracture ofthe odontoid process * had cervical surgery in December 2020 at [facility] * PT./OT on board. * Fall precautions * #Anemia of chronic disease: stable. Hb is ~ 12. On iron supplementation therapy #GERD: on famotidine #Hypertension: on metoprolol. Iv hydralazine prn DVT prophylaxis: SCDs Charges/Coding Visit Charges Inpatient E&M: 80255 Subs Hosp L3
[2021-07-20] VITALS (10 sets, daily range): BP systolic 111–142; BP diastolic 45–58; PULSE 45–63; RESP 14–18; TEMP 36.4–37.1; O2SAT 97–98
[2021-07-20] MEDS: dexAMETHasone 4 MG/ML Vial IV ×4 (05:45→23:21)
[2021-07-20] MEDS: 0.9% Saline Lock 10 ML Syringe IV ×3 (05:46→17:28)
[2021-07-20] MEDS: Docusate Sodium 100 MG Capsule PO (06:01)
[2021-07-20 07:55] LABS: Absolute Lymphocyte Count 0.35 X10^3/uL (0.83-4.51); Absolute Neutrophil Count 6.1 X10^3/uL (2.0-7.7); Hematocrit 36.3 % (37-47); Hemoglobin 11.7 g/dL (12.0-15.0); Lymphocyte # 0.35 X10^3/ul (0.83-4.51); Lymphocyte % 5.1 % (19-41); Mean Corp Hgb Conc 32.2 g/dL (32-36); Mean Corpuscular Hgb 30.1 pg (27.0-32.0); Mean Corpuscular Volume 93.3 fL (81-99); Mean Platelet Vol. 12.6 fl (6.2-12.0); Monocyte# 0.31 X10^3/uL; Monocyte% 4.5 % (0-10); NRBC Flagged by Analyzer 0 % (0-5); Neutrophil # 6.11 X10^3/uL (2.7-7.7); Neutrophil % 89.7 % (47-70); POSITIVE COUNT YES; POSITIVE DIFFERENTIAL YES; Platelet Count 87 K/mm3 (150-450); RBC Distribution Width CV 14.6 % (11.6-14.6); Red Blood Count 3.89 M/mm3 (4.2-5.4); White Blood Count 6.8 K/mm3 (4.4-11.0)
[2021-07-20 08:10] LABS: Differential Indicated SCAN CRITERIA MET
[2021-07-20 08:18] LABS: Anion Gap 4 (5-15); BUN 21 mg/dL (7-18); BUN/Creat Ratio 29.4 RATIO (10-20); Calcium,Total 8.7 mg/dL (8.5-10.1); Chloride 102 mmol/L (98-107); Creatinine, Serum 0.72 mg/dL (0.55-1.02); EST Glomerular Filtration Rate 84 mL/min (>60); Est Glom Filt Rate - Afr Amer 102 mL/min (>60); Estimated Creatinine Clearance 35.55 ml/min; Glucose 126 mg/dL (74-106); Potassium 4.2 mmol/L (3.5-5.1); Sodium Level 136 mmol/L (136-145)
--- NOTE | 2021-07-20 08:38 | MRI_ITS ---
HISTORY: Metastatic breast cancer, leptomeningeal metastases. TECHNIQUE: Multiplanar T1-weighted MR images of the lumbar spine. IV Contrast dosage and agent: 9 mL Dotarem. # of images incl. paperwork: 60. COMPARISON: Noncontrast MRI prior day. FINDINGS: VERTEBRAE: Enhancing lesions in the T11 and T12 vertebral bodies. Degenerative bone marrow endplate changes at L1-2. Artifact from posterior spinal fusion hardware at L3-5. Enhancing lesions in the left sacrum and right iliac bone. Probable postoperative defect in the left iliac bone. CONUS: Mild linear pial enhancement along the conus. Mild enhancement in the sacral canal at the S1 level and along the dura at S1 and S2 SOFT TISSUES: Unremarkable. MRI/Spine Lumbar WITH Contrast IMPRESSION: Metastatic lesions of T11, T12, left sacrum, and right iliac bone. Mild linear enhancement along the conus and tip of the thecal sac in the sacral canal, suspicious for leptomeningeal carcinomatosis. at 1143 Reported and signed by: Kim Barcenas MD Electronically Signed: Kim Barcenas MD at 11:41 EDT Tel , Service support ,
--- NOTE | 2021-07-20 08:38 | MRI_ITS ---
HISTORY: Metastatic breast cancer, leptomeningeal metastases. TECHNIQUE: Routine MRI of the cervical spine was performed after contrast administration. # of images incl. paperwork: 76. IV Contrast dosage and agent: 9 mL Dotarem. COMPARISON: Noncontrast examination prior day, MRI brain 07/18/2021. FINDINGS: POSTERIOR FOSSA/BRAIN: Enhancing cerebellar and occipital masses with leptomeningeal involvement again seen. Enhancing lesion in the occipital bone again seen. VERTEBRAE: Abnormal enhancing lesion in the odontoid with enhancing extraosseous soft tissue component noted. Artifact from posterior spinal fusion hardware at C1-2. SPINAL CANAL: No enhancing lesion in the spinal cord. No enhancing intradural extramedullary mass. INTERVERTEBRAL DISCS: No abnormal enhancement. MRI/Spine Cervical WITH Contrast IMPRESSION: Metastatic lesions in the occipital bone and C2 with enhancing extraosseous soft tissue component at the odontoid. Intracranial metastases as above. No evidence for enhancing masses in the cervical spinal cord or cervical spinal canal. at 1041 Reported and signed by: Kim Barcenas MD Electronically Signed: Kim Barcenas MD at 10:40 EDT Tel , Service support ,
--- NOTE | 2021-07-20 08:38 | MRI_ITS ---
HISTORY: Metastatic breast cancer, leptomeningeal metastases. TECHNIQUE: Multiplanar T1 MR images of the pelvis. IV Contrast dosage and agent: 9 mL Dotarem. # of images incl. paperwork: 69. COMPARISON: Noncontrast exam prior day. FINDINGS: BONE: 1.5 cm round enhancing lesion in the right iliac wing. Bilateral enhancing iliac lesions more posteriorly. Mildly enhancing 2.5 cm left sacral lesion. SOFT TISSUES: No enhancing extraosseous soft tissue component. PELVIC CONTENTS: Mild free fluid in the pelvis. MRI/Pelvis W/Contrast IMPRESSION: Enhancing lesions in the right iliac and left sacrum, concerning for metastases. Enhancing lesions in the bilateral iliac bones more posteriorly from postoperative change or metastases. at 1209 Reported and signed by: Kim Barcenas MD Electronically Signed: Kim Barcenas MD at 12:08 EDT Tel , Service support ,
--- NOTE | 2021-07-20 08:38 | MRI_ITS ---
HISTORY: Metastatic breast cancer, leptomeningeal metastases. TECHNIQUE: Multiplanar and multisequence MR images of the thoracic spine. IV Contrast dosage and agent: 9 mL Dotarem. # of images incl. paperwork: 94. COMPARISON: Noncontrast exam prior day. FINDINGS: VERTEBRAE: Enhancing lesions in the T4, T8, T11, and T12 vertebral bodies. SPINAL CANAL: No enhancing spinal cord lesion. Mild linear pial enhancement extending from T11 to the conus. SOFT TISSUES: No enhancing paraspinal soft tissue mass. MRI/Spine Thoracic WITH Contrast IMPRESSION: Multiple osseous metastases in the thoracic spine. Minimal pial enhancement from T11 to the conus level, which can be seen with arachnoiditis in a patient with prior surgery or early leptomeningeal carcinomatosis. at 1100 Reported and signed by: Kim Barcenas MD Electronically Signed: Kim Barcenas MD at 10:58 EDT Tel , Service support ,
[2021-07-20] MEDS: Tamoxifen 10 MG Tablet 20 MG PO ×2 (08:42→21:03)
[2021-07-20] MEDS: Tolterodine Tartrate 2 MG CAP.SA PO (08:42)
[2021-07-20 09:27] LABS: Differential Comment SCANNED
[2021-07-20 09:28] LABS: Platelet Estimate MOD DEC (ADEQ)
--- NOTE | 2021-07-20 12:41 | PN.HOSP_ITS ---
Subjective Subjective Patient seen and examined. She had no active complaints overnight. She went for MRI today. She had extensive MRI of the cervical, lumbar spine and thoracic spine as well as sacrum which showed extensive metastatic disease. Radiation oncology on board. Review of systems otherwise negative. Objective Data Objective Data Vital Signs: Vital Signs Temp Pulse Resp BP Pulse Ox 97.5 F L 55 L 16 112/58 L 98 07/20/21 08:50 07/20/21 08:50 07/20/21 08:50 07/20/21 08:50 07/20/21 08:50 Oxygen Delivery Method Room Air Weight: 121 lb 14.65 oz Body Mass Index (BMI) 22.5 Intake & Output: Intake and Output for Last 24 Hours 07/18/21 07/19/21 07/20/21 23:59 23:59 23:59 Intake Total 105 / 505 1850 / 2150 945 / 945 Balance 105 / 505 1850 / 2150 945 / 945 Medical Nutrition Assessment Dietitian: Malnutrition Criteria Met Start: 07/19/21 14:19 Freq: Status: Active Protocol: Document 07/19/21 14:21 RMA (Rec: 07/19/21 14:21 RMA [id number]) Nutrition Malnutrition Evidence of Malnutrition Exists Yes Malnutrition (severe): Acute Illness/Injury,Chronic Evidenced By Suboptimal Energy Intake ( Severe),Weight Loss (Severe) Clinical Problem Acute Disease or Injury Related Malnutrition Etiology Severe protein/calorie malnutrition in the context of acute on chronic cancer w/ metastatic disease related to inadequate oral intake and increased energy needs Signs/Symptoms as evidenced by ~8% wt loss x past 2 weeks and PO meeting less than 50% estimated nutrition needs Status Active Problem Recommendation Dietitian Recommendations/Changes Continue regular diet as tolerated. Will d/c ensure with [employer] and offer vanilla ensure compact TID w/ meals, vanilla magic cup BID w/ lunch and dinner as tolerated. Lab / Micro Data Result Diagrams: 07/20/21 06:40 07/20/21 06:40 Labs: Laboratory Results - last 24 hr 07/20/21 06:40: WBC 6.8, RBC 3.89 L, Hgb 11.7 L, Hct 36.3 L, MCV 93.3, MCH 30.1, MCHC 32.2, RDW Std Deviation 50.0 H, RDW Coeff of [place] 14.6, Plt Count 87 L, MPV 12.6 H, Immature Gran % (Auto) 0.700, Neut % (Auto) 89.7 H, Lymph % (Auto) 5.1 L , [place] % (Auto) 4.5, Eos % (Auto) 0.0, Baso % (Auto) 0.0, Absolute Neuts (auto) 6.1, Absolute Lymphs (auto) 0.35 L, Nucleated RBC % 0, Differential Comment SCANNED, Platelet Estimate MOD 07/20/21 06:40: Sodium 136, Potassium 4.2, Chloride 102, Carbon Dioxide 30.0, Anion Gap 4 L, BUN 21 H, Creatinine 0.72, Estim Creat Clear Calc 35.55, Est GFR (MDRD) Af Amer 102, Est GFR (MDRD) Non-Af 84, BUN/Creatinine Ratio 29.4 H, Glucose 126 H, Calcium 8.7 Radiography Diagnostic Testing: Radiology Impression Cervical Spine MRI 07/19/21 10:42 IMPRESSION: 1. Metastatic disease to C2. 2. Multilevel degenerative disc disease and degenerative arthropathy of the cervical spine with neural foraminal narrowing and central canal stenosis, as described. 3. Dilatation of the esophagus which is filled with fluid suggests either esophageal stricture or gastroesophageal reflux. Electronically Signed: Ethel Cisneros MD at 4:42 EDT , Service support , Lumbar Spine MRI 07/19/21 10:42 IMPRESSION: 1. Findings suggest metastases to T11 and T12, left sacral ala and iliac wings. 2. Patient has a transitional vertebral segment. For purposes of this dictation, last disc is designated L5-S1. 3. Multilevel degenerative disc disease and degenerative arthropathy of the lumbar spine with neural foraminal narrowing and central canal stenosis, as described. Electronically Signed: Ethel Cisneros MD at 5:18 EDT , Service support , Pelvis MRI 07/19/21 10:42 IMPRESSION: There are metastatic lesions in the sacrum and iliac wings bilaterally. No pathologic fracture is identified. The largest metastatic lesion is in the left sacrum measuring 2.3 x 2.4 cm. Electronically Signed: Moise An MD at 1:12 EDT Tel , Service support , Thoracic Spine MRI 07/19/21 10:42 IMPRESSION: 1. Multiple metastases to the thoracic spine, as described. 2. Mild dilatation of the esophagus. 3. Possible right-sided hydronephrosis. Electronically Signed: Ethel Cisneros MD at 4:53 EDT , Service support , Cervical Spine MRI 07/20/21 08:38 IMPRESSION: Metastatic lesions in the occipital bone and C2 with enhancing extraosseous soft tissue component at the odontoid. Intracranial metastases as above. No evidence for enhancing masses in the cervical spinal cord or cervical spinal canal. at 1041 Reported and signed by: Kim Bacrenas MD Electronically Signed: Kim Barcenas MD at 10:40 EDT Tel , Service support , Lumbar Spine MRI 07/20/21 08:38 IMPRESSION: Metastatic lesions of T11, T12, left sacrum, and right iliac bone. Mild linear enhancement along the conus and tip of the thecal sac in the sacral canal, suspicious for leptomeningeal carcinomatosis. at 1143 Reported and signed by: Kim Barcenas MD Electronically Signed: Kim Barcenas MD at 11:41 EDT Tel , Service support , Pelvis MRI 07/20/21 08:38 IMPRESSION: Enhancing lesions in the right iliac and left sacrum, concerning for metastases. Enhancing lesions in the bilateral iliac bones more posteriorly from postoperative change or metastases. at 1209 Reported and signed by: Kim Barcenas MD Electronically Signed: Kim Barcenas MD at 12:08 EDT Tel , Service support , Thoracic Spine MRI 07/20/21 08:38 IMPRESSION: Multiple osseous metastases in the thoracic spine. Minimal pial enhancement from T11 to the conus level, which can be seen with arachnoiditis in a patient with prior surgery or early leptomeningeal carcinomatosis. at 1100 Reported and signed by: Kim Barcenas MD Electronically Signed: Kim Barcenas MD at 10:58 EDT Tel , Service support , Physical Exam Const alert and oriented x3 Exam Limitations: no limitations HEENT head/scalp atraumatic Head and Scalp: normocephalic Eyes PERRL, EOMs intact bilaterally and conjunctivae normal Neck no lymphadenopathy Resp normal respiratory effort, no retractions, no use of accessory muscles and clear to auscultation bilaterally Cardio regular rate, regular rhythm, S1 normal heart sound, S2 normal heart sound and no murmurs GI normal to inspection, nondistended, normoactive bowel sounds, soft to palpation, non-tender and non-distended Extremity normal to inspection, full ROM and no clubbing, cyanosis or edema Skin no rashes or lesions noted Neuro CN's II-XII intact bilaterally and moves all extremities Sensorium / Orientation: awake and alert Psych affect normal Assessment & Plan Assessment/Plan (1) Leptomeningeal metastases: (2) Brain metastases: PLAN: #Ataxia and dizziness due to brain metastases * likely due to leptomeningeal mets from breast cancer * on decadron. * on tamoxifen. * oncology consulted. Radiation oncology also consulted * MRI of the cervical, thoracic, lumbar spines and sacrum showed extensive bony metastases. * per radiation oncology, to be initiated on radiation treatment. * #Breast cancer with mets to the peritoneum and cerebral mets * follows with Dr Kauffman * had lumpectomy in 2008, with right MRM and axillary dissection. She also subsequently had chemotherapy and radiation with recurrence in 2018. Had biopsy of the peritoneum then with evidence of metastatic carcinoma consistent with lobular cancer. * on tamoxifen. * #History of mechnical fall with pathologic fracture ofthe odontoid process * had cervical surgery in December [address] [facility] * PT./OT on board. * Fall precautions * #Anemia of chronic disease: stable. Hb is ~ 12. On iron supplementation therapy #GERD: on famotidine #Hypertension: on metoprolol. Iv hydralazine prn DVT prophylaxis: SCDs Charges/Coding Visit Charges Inpatient E&M: 97067 Subs Hosp L3
--- NOTE | 2021-07-20 13:40 | CASEMGMT ---
Pt does no qualify for home oxygen and states no further concerns/needs. SStfernando BOOTHE CM
[2021-07-21] VITALS (9 sets, daily range): BP systolic 107–132; BP diastolic 46–58; PULSE 52–70; RESP 14–18; TEMP 36.7–37.1; O2SAT 96–98
[2021-07-21 06:09] LABS: Absolute Lymphocyte Count 0.37 X10^3/uL (0.83-4.51); Absolute Neutrophil Count 5.4 X10^3/uL (2.0-7.7); Basophil# 0.01 X10^3/uL; Basophil% 0.2 % (0-1); Hematocrit 37.7 % (37-47); Hemoglobin 12.2 g/dL (12.0-15.0); Lymphocyte # 0.37 X10^3/ul (0.83-4.51); Mean Corp Hgb Conc 32.4 g/dL (32-36); Mean Corpuscular Hgb 29.9 pg (27.0-32.0); Mean Corpuscular Volume 92.4 fL (81-99); Mean Platelet Vol. 11.5 fl (6.2-12.0); Monocyte# 0.34 X10^3/uL; Monocyte% 5.5 % (0-10); NRBC Flagged by Analyzer 0 % (0-5); Neutrophil # 5.43 X10^3/uL (2.7-7.7); Neutrophil % 87.5 % (47-70); POSITIVE COUNT YES; POSITIVE DIFFERENTIAL YES; Platelet Count 89 K/mm3 (150-450); RBC Distribution Width CV 14.5 % (11.6-14.6); RBC Distribution Width SD 49.1 fl (35.1-43.9); Red Blood Count 4.08 M/mm3 (4.2-5.4); White Blood Count 6.2 K/mm3 (4.4-11.0)
[2021-07-21 06:43] LABS: Anion Gap 4 (5-15); BUN 21 mg/dL (7-18); BUN/Creat Ratio 29.2 RATIO (10-20); Calcium,Total 8.7 mg/dL (8.5-10.1); Chloride 104 mmol/L (98-107); Creatinine, Serum 0.72 mg/dL (0.55-1.02); Differential Indicated SCAN CRITERIA MET; EST Glomerular Filtration Rate 83 mL/min (>60); Est Glom Filt Rate - Afr Amer 101 mL/min (>60); Estimated Creatinine Clearance 35.55 ml/min; Glucose 130 mg/dL (74-106); Potassium 4.3 mmol/L (3.5-5.1); Sodium Level 136 mmol/L (136-145)
[2021-07-21] MEDS: Tamoxifen 10 MG Tablet 20 MG PO ×2 (09:45→20:26)
[2021-07-21] MEDS: Tolterodine Tartrate 2 MG CAP.SA PO (09:46)
--- NOTE | 2021-07-21 13:50 | PN.HOSP_ITS ---
Subjective Subjective Patient seen and examined. She complained of feeling weak and tired. She is due for radiation therapy today. She has no active complaints and review of systems otherwise negative. She has remained hemodynamically stable. Objective Data Objective Data Vital Signs: Vital Signs Temp Pulse Resp BP Pulse Ox 98.0 F 63 18 111/54 L 96 07/21/21 09:24 07/21/21 09:24 07/21/21 09:24 07/21/21 09:24 07/21/21 10:57 Oxygen Delivery Method Room Air Weight: 118 lb 9.739 oz Body Mass Index (BMI) 22.5 Intake & Output: Intake and Output for Last 24 Hours 07/19/21 07/20/21 07/21/21 23:59 23:59 23:59 Intake Total 1850 / 2150 1410 / 1510 205 / 205 Output Total 200 / 200 Balance 1850 / 2150 1410 / 1310 5 / Medical Nutrition Assessment Dietitian: Malnutrition Criteria Met Start: 07/19/21 14:19 Freq: Status: Active Protocol: Document 07/19/21 14:21 RMA (Rec: 07/19/21 14:21 RMA [id number]) Nutrition Malnutrition Evidence of Malnutrition Exists Yes Malnutrition (severe): Acute Illness/Injury,Chronic Evidenced By Suboptimal Energy Intake ( Severe),Weight Loss (Severe) Clinical Problem Acute Disease or Injury Related Malnutrition Etiology Severe protein/calorie malnutrition in the context of acute on chronic cancer w/ metastatic disease related to inadequate oral intake and increased energy needs Signs/Symptoms as evidenced by ~8% wt loss x past 2 weeks and PO meeting less than 50% estimated nutrition needs Status Active Problem Recommendation Dietitian Recommendations/Changes Continue regular diet as tolerated. Will d/c ensure with medpass and offer vanilla ensure compact TID w/ meals, vanilla magic cup BID w/ lunch and dinner as tolerated. Lab / Micro Data Result Diagrams: 07/21/21 05:52 07/21/21 05:52 Labs: Laboratory Results - last 24 hr 07/21/21 05:52: WBC 6.2, RBC 4.08 L, Hgb 12.2, Hct 37.7, MCV 92.4, MCH 29.9, MCHC 32.4, RDW Std Deviation 49.1 H, RDW Coeff of [place] 14.5, Plt Count 89 L, MPV 11.5, Immature Gran % (Auto) 0.800, Neut % (Auto) 87.5 H, Lymph % (Auto) 6.0 L, [place] % (Auto) 5.5, Eos % (Auto) 0.0, Baso % (Auto) 0.2, Absolute Neuts (auto) 5.4, Absolute Lymphs (auto) 0.37 L, Nucleated RBC % 0 07/21/21 05:52: Sodium 136, Potassium 4.3, Chloride 104, Carbon Dioxide 28.0, Anion Gap 4 L, BUN 21 H, Creatinine 0.72, Estim Creat Clear Calc 35.55, Est GFR (MDRD) Af Amer 101, Est GFR (MDRD) Non-Af 83, BUN/Creatinine Ratio 29.2 H, Glu cose 130 H, Calcium 8.7 Physical Exam Const alert and oriented x3 Orientation / Consciousness: lethargic Exam Limitations: no limitations HEENT head/scalp atraumatic Head and Scalp: normocephalic Eyes PERRL, EOMs intact bilaterally and conjunctivae normal Neck no lymphadenopathy Resp normal respiratory effort, no retractions, no use of accessory muscles and clear to auscultation bilaterally Cardio regular rate, regular rhythm, S1 normal heart sound, S2 normal heart sound and no murmurs GI normal to inspection, nondistended, normoactive bowel sounds, soft to palpation, non-tender and non-distended Extremity normal to inspection, full ROM and no clubbing, cyanosis or edema Skin no rashes or lesions noted Neuro CN's II-XII intact bilaterally and moves all extremities Sensorium / Orientation: awake and alert Psych affect normal Assessment & Plan Assessment/Plan (1) Leptomeningeal metastases: (2) Brain metastases: PLAN: #Ataxia and dizziness due to brain metastases * due to leptomeningeal mets from breast cancer * on decadron. * on tamoxifen. * oncology and radiation oncology on board * MRI of the cervical, thoracic, lumbar spines and sacrum showed extensive bony metastases. * having radiation therapy. started yestserday * #Breast cancer with mets to the peritoneum and cerebral mets * follows with Dr Kauffman * had lumpectomy in 2008, with right MRM and axillary dissection. She also sub sequently had chemotherapy and radiation with recurrence in 2018. Had biopsy of the peritoneum then with evidence of metastatic carcinoma consistent with lobular cancer. * on tamoxifen. * #History of mechnical fall with pathologic fracture ofthe odontoid process * had cervical surgery in December 2020 at [facility] * PT./OT on board. * Fall precautions * #Anemia of chronic disease: stable. Hb is ~ 12.2. On iron supplementation therapy #GERD: on famotidine #Hypertension: on metoprolol. Iv hydralazine prn DVT prophylaxis: SCDs Disposition: * patient says she would prefer to go home and doestn want to go to a SNF. * Case management on board. For likely DC tomorrow. She feels too weak to go home today. Charges/Coding Visit Charges Inpatient E&M: 34765 Subs Hosp L2
[2021-07-21] MEDS: Acetaminophen 325 MG Tablet 650 MG PO ×2 (16:57→22:02)
[2021-07-21] MEDS: proCHLORPERazine 10 MG/2 ML Vial 5 MG IV (22:19)
[2021-07-22] VITALS (10 sets, daily range): BP systolic 92–115; BP diastolic 46–78; PULSE 48–74; RESP 14–18; TEMP 36.4–36.8; O2SAT 94–99
[2021-07-22] MEDS: proCHLORPERazine 10 MG/2 ML Vial 5 MG IV (05:28)
[2021-07-22] MEDS: 0.9% Saline Lock 10 ML Syringe IV ×2 (05:29→22:01)
[2021-07-22 06:03] LABS: Absolute Lymphocyte Count 0.93 X10^3/uL (0.83-4.51); Absolute Neutrophil Count 3.5 X10^3/uL (2.0-7.7); Basophil# 0.02 X10^3/uL; Basophil% 0.4 % (0-1); Eosinophil# 0.03 X10^3/uL; Eosinophils% 0.6 % (0-5); Hematocrit 37.6 % (37-47); Lymphocyte # 0.93 X10^3/ul (0.83-4.51); Lymphocyte % 18.7 % (19-41); Mean Corp Hgb Conc 31.9 g/dL (32-36); Mean Corpuscular Hgb 29.6 pg (27.0-32.0); Mean Corpuscular Volume 92.8 fL (81-99); Mean Platelet Vol. 11.9 fl (6.2-12.0); Monocyte# 0.48 X10^3/uL; Monocyte% 9.7 % (0-10); NRBC Flagged by Analyzer 0 % (0-5); Neutrophil # 3.46 X10^3/uL (2.7-7.7); Neutrophil % 69.6 % (47-70); POSITIVE COUNT YES; Platelet Count 80 K/mm3 (150-450); RBC Distribution Width CV 14.5 % (11.6-14.6); RBC Distribution Width SD 49.1 fl (35.1-43.9); Red Blood Count 4.05 M/mm3 (4.2-5.4)
[2021-07-22 06:30] LABS: Anion Gap 2 (5-15); BUN 22 mg/dL (7-18); BUN/Creat Ratio 31.9 RATIO (10-20); Calcium,Total 8.4 mg/dL (8.5-10.1); Chloride 104 mmol/L (98-107); Creatinine, Serum 0.69 mg/dL (0.55-1.02); EST Glomerular Filtration Rate 88 mL/min (>60); Est Glom Filt Rate - Afr Amer 106 mL/min (>60); Estimated Creatinine Clearance 35.55 ml/min; Glucose 103 mg/dL (74-106); Potassium 3.8 mmol/L (3.5-5.1); Sodium Level 139 mmol/L (136-145)
[2021-07-22] MEDS: Tamoxifen 10 MG Tablet 20 MG PO ×2 (08:40→21:48)
[2021-07-22] MEDS: Tolterodine Tartrate 2 MG CAP.SA PO (08:41)
--- NOTE | 2021-07-22 11:35 | CASEMGMT ---
This RN CM to room to discuss discharge plan with pt/. Pt is much weaker/fatigued today then when seen by this RN CM 2 days ago. Pt states that she does not feel she will be able to go home at discharge and surprises with this statement as pt has numerous family members coming to town to see pt. Pt/ provided SNF/HHC lists at this time. CM to follow. Renee BOOTHE CM
--- NOTE | 2021-07-22 13:42 | PN.HOSP_ITS ---
Subjective Subjective Patient seen and examined. Patient looked very frail today. She said she felt very weak and tired. She had radiation therapy yesterday. Review of systems is otherwise negative. Objective Data Objective Data Vital Signs: Vital Signs Temp Pulse Resp BP Pulse Ox 97.6 F L 62 14 115/62 99 07/22/21 08:35 07/22/21 08:35 07/22/21 08:35 07/22/21 08:35 07/22/21 08:35 Oxygen Flow Rate (L/min) 2 Oxygen Delivery Method Nasal Cannula Weight: 118 lb 6.212 oz Body Mass Index (BMI) 22.5 Intake & Output: Intake and Output for Last 24 Hours 07/20/21 07/21/21 07/22/21 23:59 23:59 23:59 Intake Total 1410 / 1510 790 / 990 525 / 525 Output Total 200 / 200 Balance 1410 / 1310 590 / 790 525 / 525 Medical Nutrition Assessment Dietitian: Malnutrition Criteria Met Start: 07/19/21 14:19 Freq: Status: Active Protocol: Document 07/22/21 11:35 JUNIOR (Rec: 07/22/21 11:35 [facility] [id number]) Nutrition Malnutrition Evidence of Malnutrition Exists Yes Malnutrition (severe): Acute Illness/Injury,Chronic Evidenced By Suboptimal Energy Intake ( Severe),Weight Loss (Severe), Physical Changes (Severe) Clinical Problem Acute Disease or Injury Related Malnutrition Etiology Severe protein/calorie malnutrition in the context of acute on chronic cancer w/ metastatic disease related to inadequate oral intake and increased energy needs Signs/Symptoms as evidenced by ~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 Will provide vanilla ensure compact TID w/ meals, vanilla ensure pudding BID w/ lunch and dinner for increased calories/protein if consumed. Lab / Micro Data Result Diagrams: 07/22/21 05:35 07/22/21 05:35 Labs: Laboratory Results - last 24 hr 07/22/21 05:35: WBC 5.0, RBC 4.05 L, Hgb 12.0, Hct 37.6, MCV 92.8, MCH 29.6, MCHC 31.9 L, RDW Std Deviation 49.1 H, RDW Coeff of [place] 14.5, Plt Count 80 L, MPV 11.9, Immature Gran % (Auto) 1.000 H, Neut % (Auto) 69.6, Lymph % (Auto) 18.7 L, [place] % (Auto) 9.7, Eos % (Auto) 0.6, Baso % (Auto) 0.4, Absolute Neuts (auto) 3.5, Absolute Lymphs (auto) 0.93, Nucleated RBC % 0 07/22/21 05:35: Sodium 139, Potassium 3.8, Chloride 104, Carbon Dioxide 33.0 H, Anion Gap 2 L, BUN 22 H, Creatinine 0.69, Estim Creat Clear Calc 35.55, Est GFR (MDRD) Af Amer 106, Est GFR (MDRD) Non-Af 88, BUN/Creatinine Ratio 31.9 H, Glucose 103, Calcium 8.4 L Physical Exam Const alert and oriented x3 Orientation / Consciousness: lethargic Exam Limitations: no limitations HEENT head/scalp atraumatic Head and Scalp: normocephalic Eyes PERRL, EOMs intact bilaterally and conjunctivae normal Neck no lymphadenopathy Resp normal respiratory effort, no retractions, no use of accessory muscles and clear to auscultation bilaterally Cardio regular rate, regular rhythm, S1 normal heart sound, S2 normal heart sound and no murmurs GI normal to inspection, nondistended, normoactive bowel sounds, soft to palpation, non-tender and non-distended Extremity normal to inspection, full ROM and no clubbing, cyanosis or edema Peripheral Pulses: Yes pulses 2+ throughout Skin no rashes or lesions noted Neuro CN's II-XII intact bilaterally and moves all extremities Sensorium / Orientation: awake and alert Psych affect normal Assessment & Plan Assessment/Plan (1) Leptomeningeal metastases: (2) Brain metastases: PLAN: #Ataxia and dizziness due to brain metastases * due to leptomeningeal mets from breast cancer * on decadron. * on tamoxifen. * oncology and radiation oncology on board * MRI of the cervical, thoracic, lumbar spines and sacrum showed extensive bony metastases. * having radiation therapy. To have * #Breast cancer with mets to the peritoneum and cerebral mets * follows with Dr Kauffman * had lumpectomy in 2008, with right MRM and axillary dissection. She also subsequently had chemotherapy and radiation with recurrence in 2018. Had biopsy of the peritoneum then with evidence of metastatic carcinoma consistent with lobular cancer. * on tamoxifen. * #History of mechnical fall with pathologic fracture ofthe odontoid process * had cervical surgery in December 2020 at [facility] * PT./OT on board. * Fall precautions * #Anemia of chronic disease: stable. Hb is ~ 12. On iron supplementation therapy #GERD: on famotidine #Hypertension: on metoprolol. Iv hydralazine prn DVT prophylaxis: SCDs Disposition: * patient is very frail and I dont think she can go home safely. Patient doesnt appear interested in SNF as she says she has family coming to visit from [place] and [place], and is worried she cant get visitors in a SNF. I discussed patient's condition nad prognosis with her oncologist. It seems up until a few weeks ago, rebecca was doing well. The rapid onset of ataxia and weakness is due to the leptomeningeal disease. Plan is for patient to do 10 sessions in total of whole brain radiation therapym then the benefit of it and prognosis can be better determined. * Patient counseled that I am not comfortable discharging her home, as I dont think she is strong enough or safe to go home. Patient considering SNF. Charges/Coding Visit Charges Inpatient E&M: 37490 Subs Hosp L3
--- NOTE | 2021-07-22 14:01 | CASEMGMT ---
SW met with patient and her Samir. D/c plan was discussed. SW listened and provided emotional support while we talked through things. They were going to talk about it and NEVAEH roofing machine operator CM will get back to them. Felicia Payne ORGAN INSTALLER IVETTE
--- NOTE | 2021-07-22 14:16 | CASEMGMT ---
Addendum entered by Tracy Son 07/22/21 16:09: Call from [facility] and they now state they have no hospital beds in stock and it will be weeks before they can get one. Call to multiple DME companies and the soonest anyone can get a bed out to pt would be sunday and that was [facility]. Referral/script faxed to them at this time. Pt/ updated, voices understanding. Renee BOOTHE CM Addendum entered by Tracy Son 07/22/21 15:09: Call back from [facility] and they are able to accept pt and do SOC 07/25/21. updated on all(pt is sleeping), voices understanding. Per Dr. Londono, pt will not discharge until tomorrow. [facility] aware to call regarding DME. Green sheet on chart for HHC. Renee BOOTHE CM Original Note: Multiple conversations with pt/ regarding d/c plan. Pt would like to go home to see family and would like HHC set up, hospital bed, and w/c set up. states no preference for DME company and [facility] does have hospital beds in stock. Script faxed. states no preference for HHC company and referral to [facility] at this time. [facility] will call this RN ANTONIO back about acceptance. CM to follow. Renee BOOTHE CM
--- NOTE | 2021-07-22 14:51 | NURSING ---
Read and reviewed SN documentation. Reviewed plan of care with SN
[2021-07-23 02:56] VITALS: BP 117/47; PULSE 56; RESP 18; TEMP 36.6; O2SAT 98
[2021-07-23 04:00] VITALS: PULSE 58
[2021-07-23 07:00] VITALS: PULSE 58
[2021-07-23 07:36] VITALS: O2SAT 96
[2021-07-23 07:54] LABS: Absolute Lymphocyte Count 0.73 X10^3/uL (0.83-4.51); Absolute Neutrophil Count 4.9 X10^3/uL (2.0-7.7); Basophil# 0.01 X10^3/uL; Basophil% 0.2 % (0-1); Eosinophil# 0.07 X10^3/uL; Eosinophils% 1.1 % (0-5); Hematocrit 37.3 % (37-47); Hemoglobin 11.9 g/dL (12.0-15.0); Lymphocyte # 0.73 X10^3/ul (0.83-4.51); Lymphocyte % 11.6 % (19-41); Mean Corp Hgb Conc 31.9 g/dL (32-36); Mean Corpuscular Hgb 30.4 pg (27.0-32.0); Mean Corpuscular Volume 95.2 fL (81-99); Monocyte# 0.54 X10^3/uL; Monocyte% 8.6 % (0-10); NRBC Flagged by Analyzer 0 % (0-5); Neutrophil # 4.86 X10^3/uL (2.7-7.7); Neutrophil % 77.4 % (47-70); POSITIVE COUNT YES; Platelet Count 80 K/mm3 (150-450); RBC Distribution Width CV 14.6 % (11.6-14.6); RBC Distribution Width SD 51.1 fl (35.1-43.9); Red Blood Count 3.92 M/mm3 (4.2-5.4); White Blood Count 6.3 K/mm3 (4.4-11.0)
[2021-07-23 08:29] LABS: Anion Gap 4 (5-15); BUN 19 mg/dL (7-18); BUN/Creat Ratio 31.5 RATIO (10-20); Calcium,Total 8.4 mg/dL (8.5-10.1); Chloride 103 mmol/L (98-107); EST Glomerular Filtration Rate 102 mL/min (>60); Est Glom Filt Rate - Afr Amer 124 mL/min (>60); Estimated Creatinine Clearance 35.55 ml/min; Glucose 93 mg/dL (74-106); Potassium 4.1 mmol/L (3.5-5.1); Sodium Level 138 mmol/L (136-145)
[2021-07-23 08:55] VITALS: BP 102/52; PULSE 71; RESP 14; TEMP 36.9; O2SAT 97
[2021-07-23] MEDS: Tamoxifen 10 MG Tablet 20 MG PO (09:17)
[2021-07-23] MEDS: Tolterodine Tartrate 2 MG CAP.SA PO (09:17)
--- NOTE | 2021-07-23 11:31 | PCM.DC.SUM ---
Providers Date of Admission: 07/18/21 Primary Care Physician: Dr. Bronson Márquez, Consultations 07/18/21 17:54 Consult: Oncology/Hematology Routine Consulting Provider: Brigido Kauffman Reason for Consult: Metastatic breast CA to brain. EMERGENT Consult: No MD Notified: Yes Date Notified: 07/18/21 Time Notified: 16:45 Method of Notification: per ED. Consult: Radiation Oncology Routine Consulting Provider: Mat Philippe Reason for Consult: Requested per Dr. Kauffman, breast CA patient with brain mets EMERGENT Consult: No MD Notified: Yes Date Notified: 07/18/21 Time Notified: 16:46 Method of Notification: telephone Reason For Visit: ATAXIA, METASTATIC DISEASE TO BRAIN, BREAST CA Diagnosis Discharge Diagnosis (1) Leptomeningeal metastases: Status: Acute Code(s): C79.49 - Secondary malignant neoplasm of other parts of nervous system (2) Brain metastases: Status: Acute Code(s): C79.31 - Secondary malignant neoplasm of brain Medications at Discharge Home Medications metoprolol tartrate 50 mg PO DAILY 03/30/14 oxybutynin chloride 10 mg PO DAILY 12/10/17 multivitamin with folic acid [Thera] 1 tab PO DAILY 10/29/19 calcium carbonate-vitamin D3 1 ea PO DAILY 09/15/20 tamoxifen 20 mg PO BID 90 Days #180 tablet 01/10/21 ferrous fumarate 324 mg (106 mg iron) tablet 324 mg PO DAILY #30 tab 06/06/21 dexamethasone 4 mg tablet 4 mg PO DAILY #14 tab 07/13/21 docusate sodium [Colace] 100 mg PO QODAY PRN 07/18/21 famotidine 40 mg PO BID 07/18/21 ondansetron 4 mg PO Q8H PRN 07/18/21 Hospital Course Operations None Procedures None Summary of Care Provided Minutes Spent on Discharge: 45 Hospital Course: Patient is a 76 y/o female with an extensive PMH as oultined which includes right breast cancer with peritoneal metastases, GERD, hypertension, GERD and chronic iron deficiency anemia. She was admited via the ED on 07/18/2021 with a complain of ataxia, dizziness and poor balance, nausea and vomiting as well as double vision in her right eye. Symptoms started on 07/13/2021. HEr oncologist had ordered an MRI of the brain on outpatient basis, but her symptoms worsened, so she was brought in to the ED. CT of the brain done in the ED showed significant multiple masses in the brain of varying sizes with slightly decreased attenuation consistent with metastatic disease. She was therefore admitted and managed for ataxia and altered mental status due to breast cancer with brain metastasis. She was started on IV Decadron. Oncology was consulted as well as radiation oncology. She had imaging done of the cervical, thoracic, lumbar spines and sacrum which showed extensive osseous meta stasis. Patient was commenced on radiation therapy. She also had EEG done which showed normal awake and drowsy EEG study with no evidence of seizures. Patient was quite debilitated during admission but preferred to go home rather than to a group home. Due to patient's debility and weakness, was recommended that she would need a hospital bed at home as well as a wheelchair, in light of her metastatic breast cancer with brain and osseous metastasis to the spine as well as ataxia. Patient had 3 sessions of radiation therapy whilst in hospital and was discharged home on 07/23/2021. She is to follow-up with her primary care doctor and oncology as well as radiation oncology. Plan is for her to have 10 sessions of radiation therapy and then she is to have discussion about goals of care with her oncologist. Patient was seen and examined prior to discharge. She still felt very weak and lethargic. She however had no active complaints and pain was well controlled. Review of systems otherwise negative. Labs and vitals reviewed. Home medication reviewed and reconciled. Physical Exam Const alert and oriented x3 General Appearance: cooperative Orientation / Consciousness: lethargic Exam Limitations: no limitations HEENT normocephalic and head/scalp atraumatic Eyes PERRL, EOMs intact bilaterally and conjunctivae normal Neck no lymphadenopathy Resp normal respiratory effort, no retractions, no use of accessory muscles and clear to auscultation bilaterally Cardio regular rate, regular rhythm, S1 normal heart sound, S2 normal heart sound and no murmurs GI normal to inspection, nondistended, normoactive bowel sounds, soft to palpation, non-tender and non-distended Extremity normal to inspection, full ROM and no clubbing, cyanosis or edema Skin no rashes or lesions noted Neuro CN's II-XII intact bilaterally and moves all extremities Sensorium / Orientation: awake and alert Psych affect normal Medical Records Data Medical Nutrition Assessment Dietitian: Malnutrition Criteria Met Start: 07/19/21 14:19 Freq: Status: Active Protocol: Document 07/22/21 11:35 JUNIOR (Rec: 07/22/21 11:35 [facility] [id number]) Nutrition Malnutrition Evidence of Malnutrition Exists Yes Malnutrition (severe): Acute Illness/Injury,Chronic Evidenced By Suboptimal Energy Intake ( Severe),Weight Loss (Severe), Physical Changes (Severe) Clinical Problem Acute Disease or Injury Related Malnutrition Etiology Severe protein/calorie malnutrition in the context of acute on chronic cancer w/ metastatic disease related to inadequate oral intake and increased energy needs Signs/Symptoms as evidenced by ~8% wt loss 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 Will provide vanilla ensure compact TID w/ meals, vanilla ensure pudding BID w/ lunch and dinner for increased calories/protein if consumed. Weight / BMI Weight Weight: 117 lb 1.047 oz Body Mass Index (BMI) 22.5 ABG / Lab / Microbiology Data Result Diagrams: 07/23/21 06:15 07/23/21 06:15 Laboratory: Laboratory Results - last 24 hr 07/23/21 06:15: WBC 6.3, RBC 3.92 L, Hgb 11.9 L, Hct 37.3, MCV 95.2, MCH 30.4, MCHC 31.9 L, RDW Std Deviation 51.1 H, RDW Coeff of [place] 14.6, Plt Count 80 L, MPV 12.0, Immature Gran % (Auto) 1.100 H, Neut % (Auto) 77.4 H, Lymph % (Auto) 11.6 L, [place] % (Auto) 8.6, Eos % (Auto) 1.1, Baso % (Auto) 0.2, Absolute Neuts (auto) 4.9, Absolute Lymphs (auto) 0.73 L, Nucleated RBC % 0 07/23/21 06:15: Sodium 138, Potassium 4.1, Chloride 103, Carbon Dioxide 31.0, Anion Gap 4 L, BUN 19 H, Creatinine 0.60, Estim Creat Clear Calc 35.55, Est GFR (MDRD) Af Amer 124, Est GFR (MDRD) Non-Af 102, BUN/Creatinine Ratio 31.5 H, Glucose 93, Calcium 8.4 L D/C Instructions Discharge Diet: Low fat / Low cholesterol Discharge Activity: Return to Normal Activity Weight Bearing Status: Weight bearing as tolerated Call your doctor if you observe: Fever of 101 or Higher, Shortness of breath and Uncontrolled pain Meaningful Use Info Meaningful Use Diagnoses (Choose all that apply): None applicable Discharge Plan Admission Admit Date/Time: 07/18/21 16:41 Primary Reason for Your Visit: breast cancer with brain metastases. Attending Provider: Marline Londono Primary Care Provider: Bronson Márquez Consulting Providers: Brigido Kauffman ; Mat Philippe Instructions Patient Instructions: Understanding Bone Metastasis Discharge Orders/Prescriptions Prescriptions: Continued dexamethasone [Decadron] 4 mg tablet 4 mg PO DAILY Qty: 14 RF: 0 metoprolol tartrate 50 MG tablet 50 mg PO DAILY RF: 0 oxybutynin chloride 10 MG tablet extended release 24hr 10 mg PO DAILY RF: 0 multivitamin with folic acid [Thera] 1 TABLET tablet 1 tab PO DAILY RF: 0 calcium carbonate-vitamin D3 1 EACH tablet 1 ea PO DAILY RF: 0 ondansetron 4 mg tablet,disintegrating 4 mg PO Q8H PRN (Reason: Nausea) RF: 0 famotidine 40 mg tablet 40 mg PO BID RF: 0 docusate sodium [Colace] 100 mg Capsule 100 mg PO QODAY PRN (Reason: Constipation) RF: 0 tamoxifen 20 MG tablet 20 mg PO BID 90 Days Qty: 180 RF: 3 ferrous fumarate [Ferrocite] 324 mg (106 mg iron) tablet 324 mg PO DAILY Qty: 30 RF: 2 Referrals / Follow Up: Brigido Kauffman MD [NON-STAFF] - Within 1 Week Bronson Márquez DO [Primary Care Provider] - Within 2 Weeks Mat Philippe DO [NON-STAFF] - Within 1 Week Disposition Disposition (needs filled in before D/C Order can be placed): Home Health Service Charges/Coding Visit Charges Inpatient E&M: 60961 Disch Hosp
[2021-07-23] MEDS: 0.9% Saline Lock 10 ML Syringe IV (13:49)
--- NOTE | 2021-07-25 14:16 | CASEMGMT ---
Message from in regards to medical equipment set up. Call to [facility] and they said they are still awaiting insurance verification for the equipment. Call to to update on equipment and that [facility] will notify him for delivery, voices understanding. Quick follow up call completed. Per , C was out today to do start of care and no questions regarding d/c instructions/medications. states they are getting ready to leave to come for radiation treatment. states pt is doing a little better and 'Home is doing her good.' voices no further questions/concerns/needs. SStfernando RN CM
--- NOTE | 2021-08-01 13:18 | CASEMGMT ---
This RN CM received call from Rocael HERRING at [facility] stating pt has still not received hospital bed or w/c despite the fact that [facility] stated it would be delivered on 07/25 or 07/26. Rocael states that [facility] told her they were still awaiting a CMN. Previously, equipment has never been delayed d/t CMN not being completed yet. Call to [facility] and per rep, they did not have enough documentation to show pt qualifies. This RN CM had faxed the MRI results and the physician's d/c summary that explained the cancer w/ mets and need for equipment. This RN CM pointed this all out to [facility] rep and she stated they had all the same documentation but 'missed' the part in the summary that explained why pt needed. Per rep, they will get equipment out to pt abdelrahman. Rocael from [facility] updated and states will notify pt/. Renee BOOTHE CM
--- NOTE | 2021-09-28 11:15 | CASEMGMT ---
Call to PCU from pt's , stating that pt has and he cannot get [facility] to come picked edge sewing machine operator equipment as they keep delaying picked edge sewing machine operator. Call to [facility] and they state picked edge sewing machine operator is planned for tomorrow, 09/29/21, and to make sure answers phone as they will be calling en route for picked edge sewing machine operator. This RN CM placed call back to and phone went to voicemail, message left with regarding all and to answer phone. SStaten RN ANTONIO
== END 2021-07-23 14:15 | disposition home health service (06) | DRG 849 ==
LOC: ED 16:43 → PCU 17:26
PROVIDERS: Admitting Provider Family Medicine; Emergency Provider Emergency Medicine; PCP Student in an Organized Health Care Education/Training Program; Visit Provider Student in an Organized Health Care Education/Training Program
DX: Z51.0 Encounter for antineoplastic radiation therapy (principal); E43 Unspecified severe protein-calorie malnutrition; C79.31 Secondary malignant neoplasm of brain; C79.49 Secondary malignant neoplasm of other parts of nervous system; C79.51 Secondary malignant neoplasm of bone; C78.6 Secondary malignant neoplasm of retroperitoneum and peritoneum; R53.81 Other malaise; R53.1 Weakness; R27.0 Ataxia, unspecified; C50.911 Malignant neoplasm of unspecified site of right female breast; Z66 Do not resuscitate; Z87.311 Personal history of (healed) other pathological fracture; D63.0 Anemia in neoplastic disease; I10 Essential (primary) hypertension; K21.9 Gastro-esophageal reflux disease without esophagitis; Z68.22 Body mass index [BMI] 22.0-22.9, adult
CPT/HCPCS: 36415; 36591; 70470; 70553; 72141; 72142; 72146; 72147; 72148; 72149; 72195; 72196; 77014; 77280; 77290; 77295; 77300; 77307; 77334; 77412; 80048; 80053; 83735; 84100; 85025; 92507; 92523; 93005; 95819; 97162; 97166; 97530; 97535; 99251; 99285; A9575; J7040; J7050; Q9967; A4216; G0463; J2405